=== PATIENT | male | born 1955 | race Caucasian/White ===

== ENCOUNTER 2017-05-02 14:49 | Inpatient (IN) ==
[2017-05-02 16:28] LABS: MANUAL DIFF NEEDED? NO
[2017-05-02 16:32] LABS: BASO% 0.7 % (0.0-0.8); EOS# 0.28 X1000 (0.0-0.7); HEMATOCRIT 40.3 % (42.0-52.0); IMM GRAN# 0.02 X1000 (0.0-0.04); IMM GRAN% 0.3 % (0.0-0.5); LYMPH# 2.34 X1000 (1.2-3.4); LYMPH% 33.1 % (20.5-51.1); MCH 25.1 PG (27-31); MCHC 32.3 g/dL (33-37); MCV 77.8 FL (81-99); MONO# 0.55 X1000 (0.11-0.59); MONO% 7.8 % (1.7-9.3); MPV 11.7 FL (7.4-10.4); NEUT% 54.1 % (42.2-75.2); PLT 186 X1000 (130-400); RBC 5.18 XMIL (4.7-6.1)
[2017-05-02 16:52] LABS: AGAP 16; ALBUMIN 4.1 g/dL (3.5-5.0); ALKALINE PHOSPHATASE 54 U/L (32-122); AMYLASE 36 U/L (20-200); BUN 10 mg/dL (8-22); CALCIUM 8.9 mg/dL (8.8-10.2); CHLORIDE 99 mmol/L (98-107); COSMO 285; GOT 47 U/L (10-34); GPT 41 U/L (10-44); LIPASE 35 U/L (13-60); POTASSIUM 4.4 mmol/L (3.5-5.1); SODIUM 138 mmol/L (136-145); TCO2 23 mmol/L (25-35); TOTAL BILIRUBIN 0.15 mg/dL (0.20-1.00); TOTAL PROTEIN 7.1 g/dL (6.3-8.3)
[2017-05-02] MEDS ORDERED: ZOSYN 3.375 GM/NS 3.375 GM/50 ML IVPB IV ONE (18:32)
[2017-05-02] MEDS ORDERED: FLAGYL 500 MG/NS 500 MG/100 ML IVPB IV ONE (18:33)
[2017-05-02] MEDS ORDERED: DILAUDID IV ONE (18:34)
[2017-05-02] MEDS ORDERED: ZOFRAN IV ONE (18:35)
[2017-05-02] MEDS: NS 1,000 ML IV SCH ×2 (19:15→21:33)
--- NOTE | 2017-05-02 19:17 | PROVIDER DOCUMENTATION ---
This chart was entered by Maribeth Ahmadi Scribe, acting as scribe for Tien Umana MD. HPI-Abdominal Pain/GI Problem - General Chief Complaint: Abdominal Pain Stated Complaint: COLON PAIN Time Seen by Provider: 05/02/17 18:14 Source: patient Allergies/Adverse Reactions: Patient Allergies Allergy/AdvReac Type Severity Reaction Status Date / Time erythromycin base Allergy Severe HIVES Verified 05/02/17 16:19 [Erythromycin Base] adhesive tape Allergy RASH Verified 05/02/17 16:19 Home Medications: Home Medication List Medication Instructions Recorded Confirmed Last Taken Type Albuterol Sulfate Inhaler 2 puff INH Q6H PRN PRN 02/12/13 05/02/17 05/01/17 20: 00 History [Ventolin Hfa] Losartan Potassium [Cozaar] 100 mg PO DAILY 02/12/13 05/02/17 05/01/17 20:00 History SIMVAstatin [Zocor] 40 mg PO QHS 02/12/13 05/02/17 05/01/17 20:00 History Sertraline [Zoloft] 50 mg PO DAILY 02/12/13 05/02/17 05/02/17 08:00 History Metformin [Glucophage] 1,000 mg PO BID CC 07/08/14 05/02/17 05/02/17 08:00 History Fluticasone/Vilanterol [Breo 1 each IH DAILY #1 aer.pow.ba 11/27/15 05/02/1702/13 08:00 Rx Ellipta Inhaler] Trazodone HCl 75 mg PO QHS 03/09/16 05/02/17 05/01/17 20:00 History Sitagliptin Phosphate [Januvia] 100 mg PO DAILY #30 tablet 03/12/16 05/02/1702/13 09:00 Rx Chlordiazepoxide/Clidinium [Librax] 2.5 mg PO BID 10/05/16 05/02/17 02/11/17 10: 00 History Zolpidem [Ambien] 5 mg PO QHS 10/05/16 05/02/17 05/01/17 20:00 History Ondansetron HCl [Zofran] 4 mg PO 3-4XDAY PRN PRN #30 tablet 10/14/16 05/02/17 Unknown Rx Hydrocodone/Acetaminophen [[place] 1 each PO 3-4XDAY PRN #15 tablet 02/11/1705/02 Unknown Rx 7.5-325 Tablet] Omeprazole [Prilosec] 40 mg PO BID 02/11/17 05/02/17 05/02/17 09:00 History Dicyclomine [Bentyl] 20 mg PO BID 05/02/17 05/02/17 05/02/17 08:00 History Insulin Glargine [Lantus] 30 unit SUBQ QHS 05/02/17 05/02/17 05/01/17 21:00 History Metronidazole [Flagyl] 500 mg PO BID 05/02/17 05/02/17 05/02/17 08:00 History Tramadol HCl [Ultram] 50 mg PO PRN PRN 05/02/17 05/02/17 05/02/17 11:30 History - History of Present Illness-ABD Nature of Presenting Problems: 61 Y/O M presents to ED with ABD pain. Pt states that he has a hx of 2 resection colon surgeries. Pt states that the pain began last Monday and increased today pt states that he was assumed to develop diverticulitis by and was placed on Antibiotics. PT IS C/O of being lightheaded, states he is dehydrated . hX OF copd, Acid Reflux, and Diabetes. Abdominal Pain Onset Location: reports: RUQ, LUQ, LLQ Pain Radiation: reports: no radiation Quality of Pain: reports: aching Severity in ED: reports: moderate, severe Onset/Duration: reports: 3 days ago Timing: reports: still present Activities at Onset: reports: none Associated Symptoms: reports: other (lightheaded,dehydrted). denies: fatigue, fever/chills, muscle aches, shortness of breath, sensory/motor loss Review of Systems - Adult - REVIEW OF SYSTEMS - ADULT Constitutional: denies: chills, fever Eyes: reports: no symptoms reported Ears, Nose, Mouth & Throat: reports: no symptoms reported Cardiovascular: reports: no symptoms reported Respiratory: reports: no symptoms reported Gastrointestinal: reports: abdominal pain. denies: diarrhea, nausea, vomiting Genitourinary: reports: no symptoms reported Musculoskeletal: reports: no symptoms reported Integumentary: reports: no symptoms reported Neurological: reports: dizziness/vertigo. denies: headache/migraines, loss of balance Psychiatric: reports: no symptoms reported Endocrine: reports: no symptoms reported Hematologic/Lymphatic: reports: no symptoms reported Allergic/Immunologic: reports: no symptoms reported All Other Systems: Reviewed and Negative Past History - Adult - PAST MEDICAL HISTORY-ADULT Review of Records: reports: Old Records Reviewed, Nursing Assessment Review, Medications Reviewed, Social history reviewed & non-contributory. Cardiovascular: reports: HTN, hyperlipidemia Respiratory: reports: asthma, COPD Gastrointestinal: reports: diverticulosis Genitourinary: reports: kidney disease Endocrine/Immune: reports: Diabetes Other Conditions: reports: other cancer (skin) - PRIOR SURGERIES/PROCEDURES Surgical/Procedure History: reports: cholecystectomy, hernia repair, bowel surgery (colon for diverticulitis) - IMMUNIZATION STATUS Childhood Immunizations: See Nurse Assessment Flu Vaccine: See Nurse Assessment - FAMILY HISTORY Family History: reviewed, not pertinent Physical Exam-General - CONSTITUTIONAL General Appearance: alert, mild distress - EYES Eyes: PERRL/EOMI, pink conjunctivae - HEAD, EARS, NOSE, MOUTH & THROAT HENMT: normocephalic/atraumatic, moist mucous membranes, normal ENT inspection, TMs normal, pharynx normal - NECK Neck: full range of motion, supple, normal inspection - RESPIRATORY Respiratory: lungs clear, normal breath sounds - CARDIOVASCULAR Cardiovascular: normal peripheral pulses, regular rate, rhythm - GASTROINTESTINAL (ABDOMEN) Abdominal Exam: soft, tenderness (LLQ,LLQ,RUQ) - LYMPHATIC Lymphatic: no adenopathy - MUSCULOSKELETAL Back Exam: normal inspection Extremity: non-tender - SKIN Integumentary: normal color, normal turgor - NEUROLOGIC Neurologic: grossly normal - PSYCHIATRIC Psych/Mental Status: normal mood/affect, normal thought content, normal thought process, oriented x 3 Progress - PLAN OF CARE/RESULTS Progress/Plan/Lab Results: Vital Signs - 8 hr 05/02/17 15:14 Temperature 99.3 F Pulse Rate 106 H Respiratory Rate 20 Blood Pressure 172/96 O2 Sat by Pulse Oximetry 96 Laboratory Results - last 24 hr 05/02/17 05/02/17 15:54 15:54 WBC 7.08 RBC 5.18 Hgb 13.0 L Hct 40.3 L MCV 77.8 L MCH 25.1 L MCHC 32.3 L RDW Std Deviation 17.0 H Plt Count 186 MPV 11.7 H Immature Gran % (Auto) 0.3 Neut % (Auto) 54.1 Lymph % (Auto) 33.1 Heard % (Auto) 7.8 Eos % (Auto) 4.0 Baso % (Auto) 0.7 Immature Gran # (Auto) 0.02 Neut # (Auto) 3.84 Lymph # (Auto) 2.34 Heard # (Auto) 0.55 Eos # (Auto) 0.28 Baso # (Auto) 0.05 Sodium 138 Potassium 4.4 Chloride 99 Carbon Dioxide 23 L Anion Gap 16 BUN 10 Creatinine 0.8 Estimated GFR/1.73 m2 > 60 BUN/Creatinine Ratio 13 Glucose 278 H Calculated Osmolality 285 Calcium 8.9 Total Bilirubin 0.15 L AST 47 H ALT 41 Alkaline Phosphatase 54 Total Protein 7.1 Albumin 4.1 Globulin 3.0 Albumin/Globulin Ratio 1.4 Amylase 36 Lipase 35 Orders Category Date Time Status Saline Loc DIRECTED Care 05/02/17 15:51 Active NPO Diet 05/02/17 15:51 Active AMYLASE [CHEM] Stat Lab 05/02/17 15:54 Completed CBC WITH ELECTRONIC DIFF [HEME] Stat Lab 05/02/17 15:54 Completed COMPREHENSIVE METABOLIC PANEL [CHEM] Stat Lab 05/02/17 15:54 Completed LIPASE [CHEM] Stat Lab 05/02/17 15:54 Completed URINALYSIS W/POSS RFLX CULT-1 [URINALYSIS] Stat Lab 05/02/17 15:51 Uncollected Result Diagrams: 05/02/17 15:54 05/02/17 15:54 - XRAY 1 XRAY Study: Chest (no) Impression: Normal XRAY Interpretation: normal - CONSULTS/PCP/HOSPITALIST Notification #1 *Consult/PCP/Hospitalist*: Dr. Dotson Time Discussed: 18:29 Reason/Comments: Admit Consult Disposition: Admit (Admit Accepted) Departure - Departure Date of Disposition Decision: 05/02/17 Time of Disposition Decision: 19:15 DIAGNOSIS: Diverticulitis Qualifiers: Diverticulitis site: large intestine Diverticulitis bleeding: unspecified bleeding status Diverticulitis complication: unspecified complication status Qualified Code(s): K57.32 - Diverticulitis of large intestine without perforation or abscess without bleeding Disposition: ADMITTED INPATIENT 09 Certified Medical Emergency: Emergent Condition: Fair Referrals and Follow-Ups: Sidra Belcher MD [Primary Care Provider] - - Critical Care Note This patient required my direct & personal management of CC.: No This chart was documented by the indicated scribe, (Maribeth Ahmadi Scribe) and accurately reflects the services I performed and decisions made by me, Tien Umana MD, as attested by the provider's signature.
--- NOTE | 2017-05-02 19:25 | Diag Imaging Result Doc PS360 ---
EXAM: CHEST-PORTABLE HISTORY: peritonitis TECHNIQUE: Portable upright COMPARISON: 03/18/2016 FINDINGS: The lungs are well expanded. The heart is not enlarged. The vessels are not distended. No pneumonia. No pleural effusions identified. IMPRESSION: Negative chest. Electronically signed by Miles Caicedo 05/02/2017 7:23 PM
--- NOTE | 2017-05-02 20:14 | Diag Imaging Result Doc PS360 ---
EXAM: CT ABD/PELVIS W/ IV CONT ONLY HISTORY: diverticulitis/peritonitis TECHNIQUE: Dose reduction protocol COMPARISON: 06/05/2015 FINDINGS: The gallbladder has been removed. There is prominent fatty infiltration of the liver. The wall of the stomach is thickened. This is similar to the prior exam. Normal spleen, pancreas, and adrenal glands. Normal enhancement of the kidneys. No hydronephrosis. Moderate atherosclerosis. There are feculent material within the terminal ileum. The appendix has been removed. The urinary bladder is only mildly distended. Prostate is not enlarged. Soft tissue prominence within each inguinal canal similar to the prior exam. IMPRESSION: 1.Thickening to the wall of the stomach. Further workup recommended. 2.Cholecystectomy 3.Prominent liver with fatty infiltration 4.Soft tissue prominence within each inguinal canal similar to the prior exam 5.Appendectomy Electronically signed by Miles Caicedo 05/02/2017 8:11 PM
[2017-05-02] MEDS ORDERED: ZOSYN 3.375 GM/NS 3.375 GM/50 ML IVPB IV SCH (20:30)
[2017-05-02] MEDS ORDERED: FLAGYL 500 MG/NS 500 MG/100 ML IVPB IV SCH (20:30)
[2017-05-02] MEDS ORDERED: ZOFRAN IV PRN (20:32)
[2017-05-02] MEDS ORDERED: HUMULIN R SUBQ ONE (20:33)
[2017-05-02] MEDS ORDERED: PEPCID IV ONE (20:57)
[2017-05-02] MEDS ORDERED: SODIUM CHLORIDE 0.9% INJ ONE (20:57)
--- NOTE | 2017-05-02 21:05 | HISTORY AND PHYSICAL ---
HISTORY OF PRESENT ILLNESS: Mr. Graham who is a 61-year-old white gentleman is admitted with severe abdominal pain, possible diagnosis of acute diverticulitis. 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 Belcher had 2 surgeries, 2 colon resections done by Dr. Dee for diverticulitis. He also had back surgery as well as cholecystectomy and 2 hernia surgeries in the past. He is taking losartan. He is also taking 1000 mg of metformin b.i.d. as well as Januvia 100 mg daily and 40 units of Lantus insulin for his diabetes. He has hypertension, insulin- dependent diabetes and history of 1 back surgery. No history of any cardiovascular illness, he has COPD. He used to smoke however quit smoking 15 years ago. He does not drink. ALLERGIES: To erythromycin, tape. REVIEW OF SYSTEMS: Otherwise except for abdominal pain and persistent severe nausea is noncontributory. PHYSICAL EXAMINATION: VITAL SIGNS: Temperature 98.5 degree Fahrenheit, pulse 76 per minute, respiratory rate 18 per minute, blood pressure 146/72. HEENT: Head normocephalic. Pupils PERRLA. Fundus examination not done. Neck supple. JVP normal. ENT examination unremarkable. There is no evidence of lymphadenopathy, thyroid enlargement, pedal edema, calf tenderness, anemia, cyanosis or clubbing. Pedal pulses well felt. BREAST EXAM: Normal. CHEST: Normal inspection. LUNGS: Reveal occasional wheezing. HEART: Sounds normal. No murmur, gallop or rub noted. ABDOMEN: Distended. It is definitely tender in the left lower quadrant with minimal guarding. No rigidity, bowel sounds present. No organomegaly or free fluid noted. RECTAL: Deferred. CT scan was not indicative of any acute diverticulitis or any perforated diverticulum or gas under the diaphragm. NEUROLOGICAL: Unremarkable. Higher functions, cranial nerves, motor and sensory system examination, deep tendon reflexes, skull and spine examination normal. No cerebellar signs or signs of meningeal irritation. LOCOMOTOR EXAM: Unremarkable. SKIN EXAM: Unremarkable. CLINICAL IMPRESSION: Severe abdominal pain. PLAN: To start IV medications, IV antibiotics including Zosyn and Flagyl and give him something for pain and nausea. cc: MD Guerrero Roberts MD
[2017-05-02] MEDS: MORPHINE IV PRN ×2 (21:33→23:49)
[2017-05-02 21:56] LABS: URINE CULTURE NEEDED? NO; URINE MICRO REVIEW NEEDED? NO; URINE SOURCE CATH
[2017-05-02 21:59] LABS: BILIRUBIN URINE NEGATIVE (NEGATIVE); BLOOD URINE NEGATIVE (NEGATIVE); COLOR YELLOW; GLUCOSE URINE NEGATIVE (NEGATIVE); LEUKOCYTES URINE NEGATIVE (NEGATIVE); NITRITE URINE NEGATIVE (NEGATIVE); PH URINE 5.5; PROTEIN URINE TRACE mg/dL (NEGATIVE); TURBIDITY URINE CLEAR (CLEAR); UROBILINOGEN URINE NORMAL (NORMAL)
[2017-05-02 22:01] LABS: UR EPITHELIAL CELLS <10 /HPF (<10); URINE BACTERIA NEGATIVE /HPF; URINE RBC <10 /HPF (<10); URINE WBC <10 /HPF (<10)
[2017-05-02] MEDS: ZOFRAN IV PRN (22:50)
[2017-05-03] MEDS: ZOSYN 3.375 GM/NS 3.375 GM/50 ML IVPB IV SCH ×2 (01:52→08:19)
[2017-05-03] MEDS: TYLENOL PO PRN ×3 (02:00→20:41)
[2017-05-03] MEDS: MORPHINE IV PRN ×2 (02:00→04:16)
[2017-05-03] MEDS: FLAGYL 500 MG/NS 500 MG/100 ML IVPB IV SCH ×4 (04:16→20:30)
[2017-05-03] MEDS: ZOFRAN IV PRN ×3 (04:17→20:23)
[2017-05-03] MEDS: HUMULIN R SUBQ SCH ×4 (06:28→20:30)
[2017-05-03] MEDS: NS 1,000 ML IV SCH (08:01)
[2017-05-03] MEDS: DILAUDID IV PRN ×3 (08:18→23:46)
[2017-05-03] MEDS ORDERED: LIBRAX PO SCH ×2 (09:00→09:51)
[2017-05-03] MEDS: VENTOLIN HFA INH PRN ×2 (09:52→15:42)
[2017-05-03 09:54] LABS: MANUAL DIFF NEEDED? NO
[2017-05-03 09:58] LABS: BASO% 0.7 % (0.0-0.8); EOS# 0.12 X1000 (0.0-0.7); EOS% 1.6 % (0.0-10.0); HEMATOCRIT 36.4 % (42.0-52.0); HEMOGLOBIN 11.6 g/dL (14.0-18.0); IMM GRAN# 0.02 X1000 (0.0-0.04); IMM GRAN% 0.3 % (0.0-0.5); LYMPH# 1.02 X1000 (1.2-3.4); LYMPH% 13.6 % (20.5-51.1); MCH 24.9 PG (27-31); MCHC 31.9 g/dL (33-37); MCV 78.1 FL (81-99); MONO% 5.3 % (1.7-9.3); MPV 11.8 FL (7.4-10.4); NEUT% 78.5 % (42.2-75.2); PLT 179 X1000 (130-400); RBC 4.66 XMIL (4.7-6.1)
[2017-05-03] MEDS: JANUVIA PO SCH (10:28)
[2017-05-03] MEDS: MIRALAX PO SCH ×2 (10:29→20:27)
[2017-05-03] MEDS: ZOLOFT PO SCH (10:29)
[2017-05-03] MEDS: BENTYL PO SCH ×2 (10:29→20:26)
[2017-05-03] MEDS: PEPCID IV SCH ×2 (10:29→20:25)
[2017-05-03] MEDS: COZAAR PO SCH (10:29)
[2017-05-03 10:36] LABS: AGAP 15; BUN 9 mg/dL (8-22); CALCIUM 7.9 mg/dL (8.8-10.2); CHLORIDE 99 mmol/L (98-107); COSMO 284; POTASSIUM 4.1 mmol/L (3.5-5.1); SODIUM 137 mmol/L (136-145); TCO2 23 mmol/L (25-35)
[2017-05-03] MEDS: LIBRAX PO SCH ×3 (10:40→20:25)
[2017-05-03 11:01] LABS: HEMOGLOBIN A1C 9.9 % (4.8-6.0)
[2017-05-03] MEDS ORDERED: MAXALT PO ONE ×2 (12:50→15:00)
[2017-05-03] MEDS ORDERED: GOLYTELY PO ONE (14:00)
[2017-05-03] MEDS: BREO ELLIPTA 100/25 MCG INH INH SCH (15:44)
[2017-05-03] MEDS ORDERED: INSULIN PEN NEEDLES ONE (16:04)
[2017-05-03] MEDS ORDERED: GLUCOPHAGE PO SCH (17:00)
[2017-05-03] MEDS ORDERED: NS 1,000 ML ONE (18:55)
[2017-05-03] MEDS: ZOCOR PO SCH (20:26)
[2017-05-03] MEDS: AMBIEN PO SCH (20:26)
[2017-05-03] MEDS: DESYREL PO SCH (20:27)
[2017-05-03] MEDS: LANTUS SUBQ SCH (20:31)
--- NOTE | 2017-05-03 20:39 | PROGRESS NOTE ---
DATE: 05/03/2017 SUBJECTIVE: He is a 61-year-old, white gentleman, admitted to the hospital by Dr. Roper last night. He came in with left lower quadrant pain, nausea, vomiting. He was started on IV fluids and pain medicines and antibiotics. The patient thought he had some diverticulitis. Apparently, workup is essentially unremarkable. I did review the x-rays with the radiologist this morning. There is some thickening of the stomach which has been chronic. No change. No findings suspicious for diverticulitis. Symptoms are out of proportion to the objective findings. Patient wants to have a second opinion with Dr. Thomason. REVIEW OF SYSTEMS: HEENT: Complains of headache due to migraine. Requesting for migraine medicine. No focal symptoms. Cardiopulmonary: No cough, shortness of breath, wheezing. GI: Left lower quadrant pain, nausea, vomiting. Neurologic: No focal symptoms. PAST MEDICAL HISTORY, PAST SURGICAL HISTORY, MEDICINES: Reviewed. OBJECTIVE: Vitals: Afebrile, pulse is 84, respirations 20, blood pressure is 149/87. 92%. Input and output positive 1.6 L. HEENT: Atraumatic, normocephalic. Pupils equal, reactive to light. TMs are normal. Nose and throat within normal limits. Neck: Supple. No lymphadenopathy. No goiter. Chest: Bilateral air entry. No wheezing. Heart: Sounds are regular. Abdomen: Belly is soft. Tender in the left lower quadrant, but no signs of peritonitis. Neurologic: No obvious deficits noted. INVESTIGATIONS: CBC: White cell count 7.5, hematocrit 36, platelet 179,000. SMA7: Sodium 137, potassium 4.1, chloride 99, BUN is 9, creatinine 0.9, glucose 298. A1c 9.9. LFTs were normal. Urinalysis is clear. CT scan of the abdomen and pelvis: Findings are thickening of the wall of the stomach. Cholecystectomy, prominent fatty liver. Appendectomy. No diverticulitis. The chest x-ray was stable. ASSESSMENT AND PLAN: 1. A 61-year-old white gentleman, admitted to the hospital with abdominal pain, etiology to be determined. Discontinue morphine. Very judicious use of Dilaudid. We will consult Dr. Thomason for evaluation of thickening of the stomach. 2. Migraine headaches. We will give him Maxalt. 3. Chronic irritable bowel syndrome spasms. Continue on Bentyl and Librax. Gastrointestinal prophylaxis with IV Pepcid. 4. History of asthma and chronic obstructive pulmonary disease, on Breo. 5. Type 2 diabetes, poorly controlled, on Lantus and sliding scale. Januvia. 6. Hypertension, on Cozaar. 7. Hyperlipidemia, on Zocor. 8. Chronic insomnia, on trazodone and Ambien. LEVEL OF CARE: 35 minutes. cc: Guerrero Belcher MD
[2017-05-04] MEDS: ZOFRAN IV PRN ×6 (02:25→23:46)
[2017-05-04] MEDS: FLAGYL 500 MG/NS 500 MG/100 ML IVPB IV SCH ×4 (02:39→21:36)
[2017-05-04] MEDS: TYLENOL PO PRN (03:48)
[2017-05-04] MEDS: HUMULIN R SUBQ SCH ×4 (06:23→21:38)
[2017-05-04] MEDS: DILAUDID IV PRN ×3 (06:46→22:34)
[2017-05-04] MEDS: NS 1,000 ML IV SCH (07:26)
[2017-05-04] MEDS ORDERED: XYLOCAINE-MPF 2% ONE (08:16)
[2017-05-04] MEDS ORDERED: ROBINUL ONE (08:16)
[2017-05-04] MEDS ORDERED: DIPRIVAN 1% ONE ×2 (08:16→08:22)
[2017-05-04] MEDS ORDERED: ZOFRAN ONE (08:16)
[2017-05-04] MEDS ORDERED: FENTANYL ONE (08:17)
--- NOTE | 2017-05-04 08:54 | CONSULTATION ---
DATE OF CONSULTATION: 05/03/2017 REASON FOR CONSULTATION: Abdominal pain. HISTORY OF PRESENT ILLNESS: Mr. Graham is a 61-year-old male, who was admitted yesterday with abdominal pain in the periumbilical region, radiating to the left lower quadrant , right lower quadrant going over the last 3 days. The patient has a history of diverticulitis in the past and he has [address] Dee. He had last EGD and colonoscopy done by Dr. Thomason last year. At that time, he had esophageal dilation and had evidence of diverticula. He had imaging done this admission which showed evidence of fecal material into the terminal ileum and thickening of the wall of the stomach, fatty infiltration of liver and soft tissue prominence within each inguinal canal similar to prior exam and status post appendectomy. There is no mention of any diverticulitis. Since being in the hospital the patient is requiring a lot of pain medications. He has not had a bowel movement. He denies any nausea, vomiting at the moment. He denies any vomiting blood, passing blood in the stools. PAST MEDICAL HISTORY: 1. COPD. 2. Asthma. 3. Type 2 diabetes. 4. Obesity. 5. Metabolic syndrome. 6. Hypertension. 7. Reflux disease. 8. Esophageal stricture. 9. Constipation. 10. Diverticulosis. 11. IBS. 12. Depression. 13. Constipation and diarrhea. PAST SURGICAL HISTORY: 1. Cholecystomy. 2. Bilateral inguinal hernia repair. 3. Right shoulder surgery. 4. Sinus surgery. 5. Colon resection on the left side. 6. Right ingrown toenail surgery. HOME MEDICATIONS: Reviewed. ALLERGIES: Erythromycin, adhesive tape. SOCIAL HISTORY: He is a [place]. He is . He has 1 son. He lives in [place]. He denies any current smoking. He smoked for many years. Quit about 3 years ago. He denies any history of heavy drinking. He drinks 1 beer off and on. FAMILY HISTORY: Denies history of colon cancer in the family. His sister has diabetes. REVIEW OF SYSTEMS: Denies any fevers, rigors, chills, chest pain, shortness of breath, dyspnea. Denies any genitourinary complaints or nausea complaints. Denies any vomiting or passing blood in stools. MEDICATIONS: In the hospital. Include Tylenol, albuterol inhaler and Librax 1 tablets t.i.d. Bentyl 20 mg p.o. b.i.d., Pepcid 20 mg IV b.i.d. and Flagyl 500 mg IV q.6 hours. Fluticasone/vilanterol 1 puff daily, Lantus and regular sliding- scale insulin. Cozaar, metformin, IV 100 mL/h, Zofran, MiraLAX b.i.d., sertraline, Zocor, Januvia, trazodone, zolpidem. He is currently on clear liquid diet. PHYSICAL EXAMINATION: Temperature of 98 degrees, pulse rate of 80, respiratory rate of 14, blood pressure 155/85, saturating 90% on room air. Body weight of 191 pounds 2 ounces. BMI of 31.8 kg.General: Obese, lying in bed, in no acute distress. HEENT: Mild pallor. No icterus. Pupils equal, react to light. Neck: Supple. Chest: Regular rhythm. No murmur. Abdomen: Discomfort in the periumbilical region and epigastric region and right and lower quadrant. Bowel sounds are present. No guarding or rebound. Extremities: No cyanosis, clubbing, and edema. Neurologic: Alert, awake, oriented. LABS: Hemoglobin and hematocrit is 11.6, 36.4, white count of 7.5, platelet count of 135,000, MCV of 70.1. Sodium 139, potassium 4.1, chloride 99, bicarb 23, anion gap 15. BUN of 9, creatinine 0.9, glucose of 298, calcium 7.9. HB A1c is 9.9. AST 47, ALT 41, total protein 7.1, albumin of 4.1, lipase of 35, amylase of 35. Urinalysis showing trace protein and trace ketones, and CT scan results described in HPI. IMPRESSION/PLAN: 1. Abdominal pain worse for the last 3 days requiring hospitalization. 2. Thickening of the wall of the stomach on imaging and per Radiology recommendation we need to perform further workup. 3. Fatty liver. 4. Uncontrolled diabetes. High HB A1c 9.9. 5. IBS with irregular bowel habits with constipation and diarrhea. 6. Previous diverticulitis status post 2 colon surgeries. 7. Depression. 8. Previous surgical cholecystectomy and appendectomy on imaging. RECOMMENDATIONS: 1. Will continue the patient on clear liquid diet today. We will continue on IV fluids, IV H2 blockers, IV antibiotics in the form of Flagyl. The patient will be started on MiraLAX twice daily. 2. We will schedule the patient for EGD and colonoscopy tomorrow to evaluate her symptoms further. The patient also counseled to lose weight and follow gastroesophageal reflux life changes. The patient needs to keep a good control of diabetes to avoid long- term GI complications. 3. The above findings discussed with the patient and the nurse. cc: MD Guerrero Larsen MD [facility]
[2017-05-04] MEDS ORDERED: MAXALT PO ONE ×2 (09:43→12:00)
--- NOTE | 2017-05-04 09:48 | OPERATIVE NOTE ---
PROCEDURE DATE : 05/04/2017 ATTENDING PHYSICIAN: Dr. Belcher. TITLE OF PROCEDURE: 1. Esophagogastroduodenoscopy. 2. Ileocolonoscopy. PREOPERATIVE DIAGNOSES: 1. Abdominal pain, generalized mostly in the left lower quadrant and right lower quadrant, going on for the last 4 days along with nausea, vomiting. Admitted to the hospital with dehydration. 2. Previous history of diverticulitis requiring colon surgery x2. 3. History of irritable bowel syndrome. 4. History of reflux disease. 5. History of depression and anxiety. 6. CT scan negative for diverticulitis. POSTOPERATIVE DIAGNOSES: 1. Normal esophagus the entire length. 2. Z-line visualized at 38 cm. 3. Evidence of sliding hiatal hernia, 2 cm, sliding type. 4. Evidence of mild gastroenteritis in the stomach and body. 5. Normal fundus, cardia, and incisura. 6. Normal duodenal bulb and second portion of duodenum. 7. Normal terminal ileum. 8. Stool in the right colon, thick brown, which was lavaged. 9. Tortuous colon in the left colon, likely from scar tissue from prior surgeries. 10.Internal hemorrhoids. 11.No evidence of any colitis. ESTIMATED BLOOD LOSS: None. COMPLICATIONS: None. ANESTHESIA: Monitored anesthesia care by the anesthesiologist. SPECIMENS COLLECTED: None. DESCRIPTION OF PROCEDURE: After informed consent with the patient explained the risks, benefits, indications and alternatives to the procedure, the patient was prepared for EGD and colonoscopy. The patient was brought to the OR. He was turned in the left lateral position. A bite block was placed in the patient's mouth. After adequate monitored anesthesia care, the upper scope was gently introduced into the oral vestibule and advanced all the way to the second portion of the duodenum. The esophagus was normal in the entire length. Z-line was visualized at 38 cm. There was evidence of a 2 cm sliding hiatal hernia. The scope was advanced into the stomach where there was evidence of erythema in the body and antrum suggesting mild gastritis. There was no evidence of any ulcerations or any evidence of pyloric stenosis. Retroflexion showed normal fundus, cardia, and incisura. The hiatal hernia was visualized. The duodenal bulb and second portion of the duodenum appeared normal. The air was aspirated, and the scope was withdrawn. The patient was then turned around. Rectal exam was performed which revealed enlarged prostate. This needs to be evaluated by Urology. There was normal rectal tone. No blood on the examining finger. The colonoscope was gently introduced through the anal orifice and advanced all the way to the terminal ileum which appeared normal. There was evidence of thick stool in the right colon which was lavaged. The rest of the colon appeared normal. I did not visualize any evidence of any colitis or any obstruction. The colon was tortuous as expected from prior surgeries which could have caused some delay in emptying of the colon and contributed to his IBS symptoms. Retroflexion in the rectum revealed internal hemorrhoids. The air was aspirated, the scope withdrawn. The patient tolerated the procedure well, is currently being monitored in the OR stable condition. I discussed the findings with the patient's family. RECOMMENDATIONS: 1. The patient will be on MiraLAX 17 g once or twice daily. 2. The patient will be on Prilosec 20 mg for 6 to 8 weeks then transition to Zantac 150 mg p.o. b.i.d. 3. The patient will continue to lose weight. The patient will follow gastroesophageal reflux life changes. 4. The patient will increase fiber intake to 25 to 30 g in 24 hours. 5. Will start the patient on GI soft and advance diet as tolerated. The patient will return to clinic as needed. cc: MD Guerrero Larsen MD
[2017-05-04] MEDS ORDERED: BENTYL PO PRN (09:51)
[2017-05-04] MEDS: ZOLOFT PO SCH (10:27)
[2017-05-04] MEDS: LIBRAX PO SCH ×3 (10:27→21:37)
[2017-05-04] MEDS: JANUVIA PO SCH (10:27)
[2017-05-04] MEDS: COZAAR PO SCH (10:27)
[2017-05-04] MEDS: MIRALAX PO SCH (10:28)
[2017-05-04] MEDS: PEPCID IV SCH ×2 (10:28→21:36)
[2017-05-04] MEDS: BREO ELLIPTA 100/25 MCG INH INH SCH (11:26)
--- NOTE | 2017-05-04 19:05 | PROGRESS NOTE ---
DATE: 05/04/2017 SUBJECTIVE: Patient complains of headache, abdominal pain. Discussed with Dr. Roper. He is going to do EGD and flexible sigmoidoscopy REVIEW OF SYSTEMS: The rest of the review of systems are normal. PHYSICAL EXAMINATION: Vital Signs: He is afebrile. Vitals are stable. 2 L nasal cannula 92%. HEENT Exam: Within normal limits. Neck: Supple. Chest: Clear to auscultation. Heart: Sounds are regular. Abdomen: Belly is soft, nontender. Good bowel sounds. No masses palpable. Extremities: No peripheral edema, cyanosis. Neurologic: No obvious neurological deficits. ASSESSMENT AND PLAN: 1. Abdominal pain. Plan is follow up on EGD and flexible sigmoidoscopy. 2. Migraine headache. On Maxalt. 3. Asthmatic bronchitis. Stable. 4. Poorly-controlled diabetes, control sugar, follow up on sliding scale with insulin coverage. 5. Follow up on the EGD and colon findings are discussed with the patient. LEVEL OF DOCUMENTATION: 15 minutes. cc: Guerrero Belcher MD
[2017-05-04] MEDS: SODIUM CHLORIDE 0.9% INJ SCH (21:36)
[2017-05-04] MEDS: AMBIEN PO SCH (21:37)
[2017-05-04] MEDS: DESYREL PO SCH (21:37)
[2017-05-04] MEDS: ZOCOR PO SCH (21:38)
[2017-05-04] MEDS: LANTUS SUBQ SCH (21:39)
[2017-05-05] MEDS: FLAGYL 500 MG/NS 500 MG/100 ML IVPB IV SCH ×2 (04:16→08:04)
[2017-05-05] MEDS: ZOFRAN IV PRN ×2 (04:17→08:59)
[2017-05-05] MEDS: NS 1,000 ML IV SCH (06:03)
[2017-05-05] MEDS: MIRALAX PO SCH ×2 (06:05→08:04)
[2017-05-05] MEDS: DILAUDID IV PRN ×2 (06:49→09:47)
[2017-05-05] MEDS: HUMULIN R SUBQ SCH (06:49)
[2017-05-05 07:50] VITALS: BP 127/63
[2017-05-05] MEDS: COZAAR PO SCH (08:03)
[2017-05-05] MEDS: LIBRAX PO SCH (08:03)
[2017-05-05] MEDS: JANUVIA PO SCH (08:04)
[2017-05-05] MEDS: ZOLOFT PO SCH (08:04)
[2017-05-05] MEDS: PEPCID IV SCH (08:04)
[2017-05-05] MEDS: SODIUM CHLORIDE 0.9% INJ SCH (08:04)
--- NOTE | 2017-05-06 06:55 | DISCHARGE SUMMARY ---
ADMISSION DATE: 05/02/2017 DISCHARGE DATE: 05/05/2017 DISCHARGING DIAGNOSES: 1. Abdominal pain due to irritable bowel syndrome. 2. Chronic obstructive pulmonary disease. 3. Type 2 diabetes. 4. Hypertension. 5. Gout. 6. Hyperlipidemia. 7. Hiatal hernia with esophagitis. 8. Reactive depression. CONSULTANTS: Dr. Arya Roper. PROCEDURES: Esophagogastroduodenoscopy and colonoscopy. FINDINGS: 1. Normal esophagus. 2. Sliding hiatal hernia 2 cm. 3. Tortuous colon from the scar tissue. 4. Internal hemorrhoids. BRIEF HISTORY: Please see the H and P that was done by Dr. Roper. In brief, he is a 61-year-old, white gentleman, with a known history of IBS and scar tissue who came in with acute abdominal pain, nausea and vomiting. Patient was admitted by Dr. Roper. The patient's symptoms are out of proportion to the objective findings. He also has intractable headache due to migraine requiring Maxalt. He was given IV fluids and IV antibiotics. Further workup including CT scan of the abdomen and pelvis and EGD and colonoscopy were unremarkable. Findings were reassuring to the patient. I told him it is probably from the scar tissue and tortuous colon with IBS. Treated with Librax and refraining from any narcotics. LABORATORIES: CBC: White cell count 7.5, hematocrit 36, platelet 179,000. SMA-7: Sodium 137, potassium 4.1, chloride 99. BUN 9, creatinine 0.9. A1c 9.9. LFTs were normal. Urinalysis is clear. CT scan of the abdomen and pelvis. Thickening of the stomach wall, cholecystectomy, fatty liver, appendectomy. DISCHARGE INSTRUCTIONS: Control the blood sugars as discussed with the patient. DISCHARGE MEDICATIONS: 1. Zoloft 50 mg daily. 2. Ventolin HFA q.6 as needed. 3. Zocor 40 mg daily. 4. Losartan 100 daily. 5. Metformin 1000 p.o. b.i.d. 6. Breo 1 capsule inhalation daily. 7. Trazodone 75 mg daily. 8. Januvia 100 mg daily. 9. Librax 1 tablet as needed. 10. Ambien 5 mg at bedtime. 11. Prilosec 40 mg daily. 12. Tylenol as needed for pain. 13. MiraLAX 17 g daily. 14. Maxalt as needed for headache. PLAN: Follow up in my office for maintenance care for diabetes and hypertension. cc: MD Arya Elias MD
== END 2017-05-05 10:00 | disposition home or self-care (01) ==
LOC: ED 14:49 → 4N 20:18
PROVIDERS: ADMIT Internal Medicine; ATTEND Internal Medicine

== ENCOUNTER 2017-06-12 15:09 | Inpatient (IN) ==
[2017-06-12] MEDS: DILAUDID IV PRN ×3 (16:51→23:49)
[2017-06-12] MEDS: NS 1,000 ML IV SCH (16:57)
[2017-06-12] MEDS: FLAGYL 500 MG/NS 500 MG/100 ML IVPB IV SCH (16:57)
[2017-06-12 17:27] LABS: MANUAL DIFF NEEDED? NO
[2017-06-12 17:30] LABS: BASO% 0.8 % (0.0-0.8); EOS# 0.44 X1000 (0.0-0.7); EOS% 6.8 % (0.0-10.0); HEMATOCRIT 39.2 % (42.0-52.0); HEMOGLOBIN 12.7 g/dL (14.0-18.0); LYMPH# 2.22 X1000 (1.2-3.4); LYMPH% 34.1 % (20.5-51.1); MCH 25.1 PG (27-31); MCHC 32.4 g/dL (33-37); MCV 77.6 FL (81-99); MONO# 0.48 X1000 (0.11-0.59); MONO% 7.4 % (1.7-9.3); MPV 10.8 FL (7.4-10.4); NEUT% 50.9 % (42.2-75.2); PLT 208 X1000 (130-400); RBC 5.05 XMIL (4.7-6.1)
[2017-06-12 17:50] LABS: AGAP 18; ALBUMIN 4.3 g/dL (3.5-5.0); ALKALINE PHOSPHATASE 46 U/L (32-122); BUN 9 mg/dL (8-22); CALCIUM 9.3 mg/dL (8.8-10.2); CHLORIDE 100 mmol/L (98-107); COSMO 278; GOT 52 U/L (10-34); GPT 60 U/L (10-44); POTASSIUM 4.3 mmol/L (3.5-5.1); SODIUM 139 mmol/L (136-145); TCO2 21 mmol/L (25-35); TOTAL BILIRUBIN 0.17 mg/dL (0.20-1.00); TOTAL PROTEIN 7.2 g/dL (6.3-8.3)
--- NOTE | 2017-06-12 20:47 | Diag Imaging Result Doc PS360 ---
CT ABD/PELVIS W/ IV CONT ONLY - 06/12/2017 INDICATION: Abdominal pain TECHNIQUE: A CT dose reduction protocol was used. COMPARISON: 05/02/2017 FINDINGS: stable chronic atelectasis in the lingula. No infiltrates in the lung bases. Stable fatty change of the liver the liver. No bowel obstruction or inflammation. Stable bilateral inguinal hernia repair plugs. Urinary bladder, prostate, and rectum are normal. IMPRESSION: Fatty liver. No acute disease or change from prior. Electronically signed by Ervin Browne 06/12/2017 8:44 PM
[2017-06-12] MEDS: HUMALOG SUBQ SCH (21:23)
[2017-06-12 22:07] LABS: URINE SOURCE VOIDED
[2017-06-12] MEDS: ZOFRAN IV PRN (22:13)
[2017-06-12] MEDS: TYLENOL PO PRN (22:13)
--- NOTE | 2017-06-12 22:17 | HISTORY AND PHYSICAL ---
CHIEF COMPLAINT: Left-sided abdominal pain associated with fever, nausea, vomiting. HISTORY OF PRESENT ILLNESS: He is a 61-year-old white gentleman admitted to the hospital directly from office with left lower quadrant pain associated with a fever tachycardic, patient was very tender. Has been hospitalized for possible colitis versus diverticulitis. I gave him the options outpatient treatment in light of negative workup recently. He wants to go to the hospital for aggressive medical management. He also has some diarrhea and vomiting. PAST MEDICAL HISTORY: COPD, diabetes, metabolic syndrome, hypertension, acid reflux disease, IBS with diarrhea, depression, hyperlipidemia. PAST SURGICAL HISTORY: Gallbladder surgery, bilateral inguinal hernia repair, right shoulder surgery, sinus surgery. MEDICINES: Ambien 5 mg daily, Breo 1 puff daily, Cozaar 100 daily, Januvia 100 daily, Librax 1 tablet 3 times daily, Maxalt 10 mg daily, metformin 500 two tablets p.o. b.i.d. , Singulair 10 daily, simvastatin 40 daily, Spiriva 1 capsule inhalation daily, trazodone 150 at bedtime, Trulicity once a week, Ultram 50 t.i.d., Ventolin as needed, Zanaflex 4 mg daily, Zoloft 50 daily. ALLERGIES: Erythromycin. SOCIAL HISTORY: 23 years, 1 son, wilmer, lives in [place], no smoking, no alcohol. FAMILY HISTORY: Father of diabetic complications, chronic kidney disease. Mom of COPD, hypertension and diabetes. HEALTH MAINTENANCE: Flu vaccine 2015, pneumococcal vaccine 2013. Last prostate exam 12/2014, colonoscopy 04/[address] Thomason. REVIEW OF SYSTEMS: HEENT: No headache. No vision problem. No earache. No sore throat. Neck: No goiter. No lymphadenopathy. No bruit. Cardiopulmonary: No chest pain, shortness of breath, PND, orthopnea. GI: Left lower quadrant pain, fever, diarrhea, nausea, vomiting. : No history of hesitancy, frequency. Extremities: No swelling of legs. No joint pain. Neuro: No focal symptoms or weakness. PHYSICAL EXAMINATION: VITAL SIGNS: Afebrile. Vitals are stable. 5 feet 5, 187 pounds. HEENT: Atraumatic, normocephalic. Pupils equal, react to light. TMs are normal. Nose and throat within normal limits. NECK: Supple. No lymphadenopathy. No goiter. CHEST: Bilateral air entry. No rales, no wheezing. HEART: Sounds are regular. BELLY: Is soft. Tender in the left lower quadrant area, good bowel sounds, no signs of peritonitis. EXTREMITIES: No peripheral edema, cyanosis. NEURO: No obvious neurological deficits. INVESTIGATIONS: CBC, white cell count 6.5, hematocrit 39, platelets 350 SMA 7 is normal. Glucose 126. LFTs are slightly high. CT scan of the abdomen and pelvis pending. ASSESSMENT AND PLAN: 1. 61-year-old white gentleman admitted to the hospital with left lower quadrant pain suspicious for diverticulitis. Symptoms are out of proportion to the objective findings. Follow up on CT, continue IV fluids and IV Flagyl. Deep venous thrombosis prophylaxis with Lovenox. PPI prophylaxis with Protonix. Reconcile home medicines. 2. Type 2 diabetes poorly controlled. Follow up on sliding scale with insulin coverage. Will keep him on NPO until the results and will follow up on pending labs. cc: Guerrero Belcher MD MTDD
[2017-06-12 22:29] LABS: URINE MICRO REVIEW NEEDED? NO
[2017-06-12] MEDS: PROTONIX IV SCH (23:54)
[2017-06-12] MEDS: SODIUM CHLORIDE 0.9% INJ SCH (23:55)
[2017-06-12] MEDS: LOVENOX SUBQ SCH (23:55)
[2017-06-12] MEDS: AMBIEN PO SCH (23:55)
[2017-06-12] MEDS: ZOCOR PO SCH (23:56)
[2017-06-12] MEDS: DESYREL PO SCH (23:56)
[2017-06-13 00:23] LABS: BILIRUBIN URINE NEGATIVE (NEGATIVE); BLOOD URINE NEGATIVE (NEGATIVE); COLOR ORANGE; GLUCOSE URINE NEGATIVE (NEGATIVE); LEUKOCYTES URINE NEGATIVE (NEGATIVE); NITRITE URINE NEGATIVE (NEGATIVE); PH URINE 5.5; PROTEIN URINE TRACE mg/dL (NEGATIVE); SP GRAVITY URINE 1.025; TURBIDITY URINE TURBID (CLEAR); UROBILINOGEN URINE NORMAL (NORMAL)
[2017-06-13 00:24] LABS: UR EPITHELIAL CELLS <10 /HPF (<10); URINE BACTERIA NEGATIVE /HPF; URINE RBC <10 /HPF (<10); URINE WBC <10 /HPF (<10)
[2017-06-13] MEDS: FLAGYL 500 MG/NS 500 MG/100 ML IVPB IV SCH ×3 (01:23→17:11)
[2017-06-13] MEDS: ZOFRAN IV PRN ×6 (02:15→21:40)
[2017-06-13] MEDS: DILAUDID IV PRN ×7 (02:57→21:40)
[2017-06-13] MEDS: TYLENOL PO PRN ×3 (05:26→17:58)
[2017-06-13] MEDS: HUMALOG SUBQ SCH ×3 (07:23→16:18)
[2017-06-13] MEDS: NS 1,000 ML IV SCH ×3 (07:27→21:40)
[2017-06-13] MEDS: JANUVIA PO SCH (08:55)
[2017-06-13] MEDS: COZAAR PO SCH (08:55)
[2017-06-13] MEDS: ZOLOFT PO SCH (08:56)
[2017-06-13] MEDS: THERA M PLUS PO SCH (08:56)
--- NOTE | 2017-06-13 08:58 | PROGRESS NOTE ---
DATE: 06/13/2017 SUBJECTIVE: Patient has still left lower quadrant pain. REVIEW OF SYSTEMS: None reported. OBJECTIVE: Vital Signs: Afebrile. Vitals are stable. Input and output are 820 mL positive. HEENT: Within normal limits. Neck: Supple. No lymphadenopathy. Chest: Clear. Heart: Sounds are regular. Abdomen: Belly is soft, nontender. No signs of peritonitis. INVESTIGATIONS: CBC, SMA 12, urinalysis is clear. CT of the abdomen and pelvis is negative. ASSESSMENT AND PLAN: 1. Abdominal pain on the left side. Symptoms are out of proportion to the objective findings. Results discussed with the patient. Judicious use of pain medicines and Flagyl. Previous gastrointestinal workup was negative. 2. Advance the diet and follow up on sliding scale with insulin coverage. LEVEL OF DOCUMENTATION: 25 minutes. cc: Guerrero Belcher MD
[2017-06-13] MEDS ORDERED: INSULIN PEN NEEDLES ONE (14:45)
[2017-06-13] MEDS ORDERED: LANTUS SUBQ SCH (21:00)
[2017-06-13] MEDS: AMBIEN PO SCH (21:39)
[2017-06-13] MEDS: ZOCOR PO SCH (21:39)
[2017-06-13] MEDS: DESYREL PO SCH (21:39)
[2017-06-13] MEDS: SODIUM CHLORIDE 0.9% INJ SCH (21:40)
[2017-06-13] MEDS: LOVENOX SUBQ SCH (21:40)
[2017-06-13] MEDS: PROTONIX IV SCH (21:40)
[2017-06-14] MEDS: HUMALOG SUBQ SCH ×4 (00:12→17:03)
[2017-06-14] MEDS: DILAUDID IV PRN ×5 (00:49→21:13)
[2017-06-14] MEDS: FLAGYL 500 MG/NS 500 MG/100 ML IVPB IV SCH ×3 (00:50→16:56)
[2017-06-14] MEDS: ZOFRAN IV PRN (03:47)
[2017-06-14] MEDS: PHENERGAN IV PRN ×3 (08:01→16:55)
[2017-06-14] MEDS: SODIUM CHLORIDE 0.9% INJ PRN ×2 (08:01→16:56)
--- NOTE | 2017-06-14 08:36 | Diag Imaging Result Doc PS360 ---
EXAM: CHEST-1 VIEW INDICATION: possible aspiration TECHNIQUE: One view COMPARISON: 05/02/2017 FINDINGS: Inspiration is suboptimal this is causing mild central vascular crowding. The lungs are grossly clear. There is no discrete pleural fluid collection or pneumothorax. The cardiomediastinal silhouette and central vasculature are grossly unremarkable. IMPRESSION: Low lung volumes but no definite acute pathology by plain radiograph, otherwise. Electronically signed by Parish Dodd 06/14/2017 8:34 AM
[2017-06-14] MEDS: THERA M PLUS PO SCH (09:00)
[2017-06-14] MEDS: JANUVIA PO SCH (09:00)
[2017-06-14] MEDS: ZOLOFT PO SCH (10:34)
[2017-06-14] MEDS: COZAAR PO SCH (10:34)
[2017-06-14] MEDS: NS 1,000 ML IV SCH (11:47)
--- NOTE | 2017-06-14 18:36 | PROGRESS NOTE ---
DATE: 06/14/2017 SUBJECTIVE: The patient has extremely bilious vomiting this morning. Oxygen level is low. He was given oxygen. REVIEW OF SYSTEMS: Low-grade fever. PHYSICAL EXAMINATION: Vitals are stable on oxygen 2 L. HEENT exam within normal limits. Chest is clear. Heart sounds are regular. Belly is soft, nontender. Good bowel sounds. No masses palpable. No peripheral edema or cyanosis. No obvious neurological deficits. CHEST X-RAY: Low lung volumes. No infiltrates noted. ASSESSMENT AND PLAN: 1. Abdominal pain. Symptoms are out of proportion with objective findings. IV fluids and IV Flagyl. 2. Nausea and vomiting. Probably from the medication effect. Put him NPO, IV fluids and IV Phenergan. 3. Questionable aspiration. Follow up on chest x-ray. Stable. 4. Type 2 diabetes on Lantus insulin. Since he is NPO, we will hold the Lantus tonight and will follow up. cc: Guerrero Belcher MD
[2017-06-14] MEDS: DESYREL PO SCH (21:10)
[2017-06-14] MEDS: SODIUM CHLORIDE 0.9% INJ SCH (21:11)
[2017-06-14] MEDS: PROTONIX IV SCH (21:11)
[2017-06-14] MEDS: AMBIEN PO SCH (21:11)
[2017-06-14] MEDS: LOVENOX SUBQ SCH (21:11)
[2017-06-14] MEDS: ZOCOR PO SCH (21:11)
[2017-06-15] MEDS: NS 1,000 ML IV SCH ×2 (01:30→15:57)
[2017-06-15] MEDS: FLAGYL 500 MG/NS 500 MG/100 ML IVPB IV SCH ×3 (01:31→19:43)
[2017-06-15] MEDS: DILAUDID IV PRN ×5 (02:31→21:25)
[2017-06-15] MEDS: PHENERGAN IV PRN ×4 (02:35→15:58)
[2017-06-15] MEDS: HUMALOG SUBQ SCH ×5 (03:17→21:31)
[2017-06-15] MEDS: COZAAR PO SCH (08:13)
[2017-06-15] MEDS: ZOLOFT PO SCH (08:13)
[2017-06-15] MEDS: JANUVIA PO SCH (08:13)
[2017-06-15] MEDS: THERA M PLUS PO SCH (08:13)
[2017-06-15] MEDS: SODIUM CHLORIDE 0.9% INJ SCH ×3 (11:56→21:24)
--- NOTE | 2017-06-15 20:46 | PROGRESS NOTE ---
DATE: 06/15/2017 SUBJECTIVE: Patient is a little better. NPO. Decreased nausea, vomiting. No flatus. OBJECTIVE: Vital signs: Low-grade fever. Vitals are stable. Chest: Decreased rhonchi. Heart: Sounds are regular. Abdomen: Belly is soft, nontender. Good bowel sounds. No masses palpable. No signs of peritonitis. Neurologic: Nonfocal. INVESTIGATIONS: Chest x-ray was stable. ASSESSMENT AND PLAN: 1. Nausea and vomiting due to Dilaudid. CT findings reassuring. Diet nothing per oral. 2. Symptomatic treatment for nausea, Phenergan. 3. Diabetes. We will hold the Lantus since nothing per oral. Continue on popsicles and ice chips today until he passes 3 flatus. 4. DVT prophylaxis with Lovenox. Discussed with the . will follow up. LEVEL OF DOCUMENTATION: 25 minutes. cc: Guerrero Belcher MD
[2017-06-15] MEDS: ZOFRAN IV PRN (21:24)
[2017-06-15] MEDS: ZOCOR PO SCH (21:24)
[2017-06-15] MEDS: PROTONIX IV SCH (21:24)
[2017-06-15] MEDS: AMBIEN PO SCH (21:24)
[2017-06-15] MEDS: DESYREL PO SCH (21:24)
[2017-06-15] MEDS: LOVENOX SUBQ SCH (21:25)
[2017-06-15] MEDS: TYLENOL PO PRN (21:44)
[2017-06-16] MEDS: PHENERGAN IV PRN ×4 (03:25→20:04)
[2017-06-16] MEDS: SODIUM CHLORIDE 0.9% INJ PRN (03:25)
[2017-06-16] MEDS: DILAUDID IV PRN ×6 (03:26→23:40)
[2017-06-16] MEDS: FLAGYL 500 MG/NS 500 MG/100 ML IVPB IV SCH ×3 (03:27→20:02)
[2017-06-16] MEDS: HUMALOG SUBQ SCH ×4 (06:30→22:37)
[2017-06-16] MEDS: ZOFRAN IV PRN ×2 (06:41→23:40)
[2017-06-16] MEDS: NS 1,000 ML IV SCH (08:39)
[2017-06-16] MEDS: COZAAR PO SCH (08:40)
[2017-06-16] MEDS: THERA M PLUS PO SCH (08:40)
[2017-06-16] MEDS: JANUVIA PO SCH (08:40)
[2017-06-16] MEDS: ZOLOFT PO SCH (08:40)
[2017-06-16] MEDS: SODIUM CHLORIDE 0.9% INJ SCH ×3 (11:22→20:04)
[2017-06-16] MEDS: DESYREL PO SCH (20:03)
[2017-06-16] MEDS: LOVENOX SUBQ SCH (20:04)
[2017-06-16] MEDS: PROTONIX IV SCH (20:04)
[2017-06-16] MEDS: AMBIEN PO SCH (20:04)
[2017-06-16] MEDS: ZOCOR PO SCH (20:04)
--- NOTE | 2017-06-16 21:19 | PROGRESS NOTE ---
DATE: 06/16/2017 SUBJECTIVE: The patient is a little better. Decrease in nausea and vomiting. History of flatus. Able to go to the bathroom. PHYSICAL EXAMINATION: Vital Signs: Stable. 90% on room air. Intake and output are positive 480. REVIEW OF SYSTEMS: No shortness of breath, wheezing. PHYSICAL EXAMINATION: Vital Signs: Afebrile. HEENT: Within normal limits. Neck: Supple. Chest: No rhonchi. Heart: Sounds are regular. Abdomen: Belly is soft, nontender. Good bowel sounds. No signs of peritonitis. Neurologic: No obvious focal deficits. INVESTIGATIONS: 1. Abdominal pain on the left side. Symptoms are out of proportion. CT scan is negative. Continued to ask for the Dilaudid. Will slowly cut down the dose. 2. Nausea and vomiting due to medication effect. We will initiate full liquid diet. If she tolerates, slowly advanced the diet. 3. Chronic obstructive pulmonary disease and asthma, stable. 4. Diabetes. Follow on the Lantus. 5. Continue deep venous thrombosis and gastrointestinal prophylaxis as the plan of care. 6. We will keep him over the weekend, and hopefully he will be discharged on Monday. LEVEL OF DOCUMENTATION: 35 minutes. cc: Guerrero Belcher MD
[2017-06-17] MEDS: PHENERGAN IV PRN ×2 (02:43→09:11)
[2017-06-17] MEDS: SODIUM CHLORIDE 0.9% INJ PRN (02:43)
[2017-06-17] MEDS: DILAUDID IV PRN ×7 (02:44→23:59)
[2017-06-17] MEDS: NS 1,000 ML IV SCH (02:46)
[2017-06-17] MEDS: FLAGYL 500 MG/NS 500 MG/100 ML IVPB IV SCH ×3 (03:00→21:49)
[2017-06-17] MEDS: ZOFRAN IV PRN ×2 (06:03→20:55)
[2017-06-17] MEDS: HUMALOG SUBQ SCH ×4 (06:07→21:38)
[2017-06-17] MEDS: ZOLOFT PO SCH (09:12)
[2017-06-17] MEDS: COZAAR PO SCH (09:12)
[2017-06-17] MEDS: THERA M PLUS PO SCH (09:12)
[2017-06-17] MEDS: JANUVIA PO SCH (09:12)
[2017-06-17 09:27] LABS: MANUAL DIFF NEEDED? NO
[2017-06-17 09:56] LABS: BASO% 0.6 % (0.0-0.8); EOS# 0.43 X1000 (0.0-0.7); EOS% 6.9 % (0.0-10.0); HEMATOCRIT 34.8 % (42.0-52.0); HEMOGLOBIN 10.9 g/dL (14.0-18.0); LYMPH# 1.92 X1000 (1.2-3.4); LYMPH% 30.6 % (20.5-51.1); MCH 25.2 PG (27-31); MCHC 31.3 g/dL (33-37); MCV 80.6 FL (81-99); MONO# 0.47 X1000 (0.11-0.59); MONO% 7.5 % (1.7-9.3); MPV 10.9 FL (7.4-10.4); NEUT% 54.4 % (42.2-75.2); PLT 176 X1000 (130-400); RBC 4.32 XMIL (4.7-6.1)
--- NOTE | 2017-06-17 10:01 | PROGRESS NOTE ---
DATE: 06/17/2017 SUBJECTIVE: Mr. Graham is a 61-year-old white gentleman admitted with pain, left lower quadrant. The patient also had significant tenderness, mild nausea, no vomiting. Pain moderate to severe in intensity, requiring IV pain medicine. Admission history and physical noted. Patient's CT scan of the abdomen and pelvis did reveal fatty liver. PAST MEDICAL HISTORY: Significant for diabetes, COPD, hypertension, gastritis, and reflux disease, irritable bowel syndrome, hyperlipidemia. OBJECTIVE: Vital signs: Noted. Lungs: Bibasilar crepitations. Heart: S1 and S2 heard. Abdomen: Soft, globular, tenderness left lower quadrant. Extremities: No cyanosis, clubbing, no acute DVT. ASSISTANT DIRECTOR OF PUBLIC WORKS: Alert, awake, able to move a 4 limbs. DIAGNOSTIC DATA: CT scan results reviewed. PROBLEMS: Include: 1. Left lower quadrant pain. 2. [id number] diabetes mellitus. 3. Hypertension. 4. Gastritis. 5. Fatty liver. ASSESSMENT AND PLAN: Will continue current treatment. Close observation. The patient is on pain medicine, IV antibiotics which will continue. I am going to get GI evaluation. cc: MD Guerrero Rivera MD
[2017-06-17 10:17] LABS: AGAP 12; ALBUMIN 3.6 g/dL (3.5-5.0); ALKALINE PHOSPHATASE 39 U/L (32-122); BUN 4 mg/dL (8-22); CALCIUM 8.6 mg/dL (8.8-10.2); CHLORIDE 103 mmol/L (98-107); COSMO 285; GOT 37 U/L (10-34); GPT 40 U/L (10-44); MAGNESIUM 1.3 mg/dL (1.5-2.7); POTASSIUM 3.7 mmol/L (3.5-5.1); SODIUM 141 mmol/L (136-145); TCO2 26 mmol/L (25-35); TOTAL BILIRUBIN 0.28 mg/dL (0.20-1.00)
[2017-06-17] MEDS ORDERED: MAGNESIUM SULFATE 2 GM/S.W.I. 2 GM/50 ML IVPB IV ONE (19:29)
[2017-06-17] MEDS: DESYREL PO SCH (20:54)
[2017-06-17] MEDS: ZOCOR PO SCH (20:54)
[2017-06-17] MEDS: PROTONIX IV SCH (20:55)
[2017-06-17] MEDS: AMBIEN PO SCH (20:55)
[2017-06-17] MEDS: SODIUM CHLORIDE 0.9% INJ SCH (20:55)
[2017-06-17] MEDS: LOVENOX SUBQ SCH (20:55)
[2017-06-17] MEDS ORDERED: ALBUTEROL NEB INH PRN (21:14)
[2017-06-17] MEDS: DUONEB (A & A) INH PRN (22:14)
[2017-06-18] MEDS: NS 1,000 ML IV SCH (00:13)
[2017-06-18] MEDS: DILAUDID IV PRN ×6 (03:24→22:05)
[2017-06-18] MEDS: PHENERGAN IV PRN ×3 (03:24→11:47)
[2017-06-18] MEDS: FLAGYL 500 MG/NS 500 MG/100 ML IVPB IV SCH ×3 (03:24→22:15)
[2017-06-18] MEDS: HUMALOG SUBQ SCH ×4 (06:25→22:09)
[2017-06-18] MEDS: ZOFRAN IV PRN ×3 (08:06→22:16)
[2017-06-18] MEDS: COZAAR PO SCH (08:15)
[2017-06-18] MEDS: THERA M PLUS PO SCH (08:15)
[2017-06-18] MEDS: JANUVIA PO SCH (08:16)
[2017-06-18] MEDS: ZOLOFT PO SCH (08:16)
[2017-06-18] MEDS: DUONEB (A & A) INH PRN (10:51)
[2017-06-18] MEDS: BREO ELLIPTA 100/25 MCG INH INH SCH (10:52)
[2017-06-18] MEDS: SODIUM CHLORIDE 0.9% INJ PRN (11:49)
--- NOTE | 2017-06-18 13:55 | PROGRESS NOTE ---
DATE: 06/18/2017 SUBJECTIVE: Mr. Graham is doing fair. He is still complaining of pain in the left lower quadrant, moderate in intensity. Requiring IV pain medications. Yesterday patient had a cough and wheezing. I resumed his bronchodilator care and today patient is feeling some better. The patient is still on a full liquid diet. No typical chest pain or palpitations. No dysuria or hematuria. No blood or mucus in the stool. Denied any back pain or radiculopathy. OBJECTIVE: Vital signs: Noted. Neck: Supple. No JVD. Lungs: Bilateral good air entry present. CVS: S1 and S2 heard. Abdomen: Soft. The patient does have tenderness left lower quadrant. No guarding or rigidity. Extremities: No cyanosis, clubbing. Minimal swelling around ankles. MANAGER DATA: Alert, awake. Able to move all 4 limbs. CONSIDERATION: 1. Left lower quadrant pain, etiology not known. I repeated blood work yesterday. CBC was benign. Electrolytes were fairly benign. His magnesium was low and I supplemented magnesium. LFTs were fairly benign. I am going to get GI consultation as patient is not getting better. 2. Chronic obstructive pulmonary disease. 3. Diabetes mellitus. 4. Hypertension. 5. Situational depression. 6. Hyperlipidemia. PLAN: Labs and medications noted. Overall plan discussed with the patient and he is in agreement. After reviewing the x-ray and GI evaluation, will make necessary recommendations. cc: MD Guerrero Rivera MD
--- NOTE | 2017-06-18 14:26 | Diag Imaging Result Doc PS360 ---
EXAM: ABDOMEN FLAT/UPRIGHT INDICATION: pain TECHNIQUE: 3 views COMPARISON: 06/07/2015 FINDINGS: There are nonspecific bowel gas and stool patterns. There is no obstructive bowel pattern. There is no evidence of large volume free abdominal gas. There is no evidence of organomegaly. IMPRESSION: Nonspecific abdomen. Electronically signed by Parish Dodd 06/18/2017 2:24 PM
--- NOTE | 2017-06-18 14:30 | Diag Imaging Result Doc PS360 ---
EXAM: CHEST-2 VIEWS INDICATION: pulm edema? TECHNIQUE: 2 views COMPARISON: 06/14/2017 FINDINGS: The lungs are grossly clear. There is no discrete pleural fluid collection or pneumothorax. The cardiomediastinal silhouette and central vasculature are grossly unremarkable. IMPRESSION: No evidence of acute pathology by plain radiograph. Electronically signed by Parish Dodd 06/18/2017 2:28 PM
[2017-06-18] MEDS ORDERED: BENTYL LIQUID PO SCH (17:00)
--- NOTE | 2017-06-18 20:05 | CONSULTATION ---
DATE OF CONSULTATION: 06/18/2017 ATTENDING PHYSICIAN: Dr. Jacobsen. PRIMARY DOCTOR: Dr. Belcher. REASON FOR CONSULTATION: Left lower quadrant pain and left upper quadrant pain. HISTORY OF PRESENT ILLNESS: Mr. Graham is a 61-year-old male, who has prior history of diverticulitis in the past and had [address] Dee. He has had recent EGD and colonoscopy done on 05/04/2017, which showed: A. Sliding hiatal hernia 2 cm. B. Mild gastritis in the stomach body. C. Normal terminal ileum. D. Stool in the right colon thick brown large. E. Torturous colon left colon likely from scar from prior surgeries. F. Isolated diverticulum in the splenic flexure. G. No evidence any colitis. At that time the patient was placed on MiraLAX and Prilosec. He is taking that at home until about last week when he continued to have worsening abdominal pain. He saw Dr. Belcher in the outpatient and then was admitted through the ER subsequently with worsening left-sided abdominal pain with fever, nausea and vomiting. He had a CT scan of the abdomen and pelvis done on 06/12/2017, which showed fatty liver, no bowel obstruction inflammation, stable bilateral inguinal hernia repair plugs and urinary bladder, prostate and rectum are normal. The patient is currently being treated with IV pain control, IV fluids, IV antiemetics. He continues to have persistent symptoms requiring IV Dilaudid every 3 hours and the primary care team consulted us for further management. PAST MEDICAL HISTORY: COPD, asthma, type 2 diabetes, obesity, metabolic syndrome, fatty liver, hypertension, reflux disease, esophageal stricture, constipation, diverticulosis , IBS, depression, constipation and diarrhea. PAST SURGERY HISTORY: Cholecystectomy, bilateral inguinal hernia repair, right shoulder surgery, sinus surgery, colon resection x 2 in the left side from diverticulitis by Dr. Dee, right-sided ingrown toenail surgery. MEDICATIONS AT HOME: Reviewed. ALLERGIES: To erythromycin and adhesive tape. SOCIAL HISTORY: He is a [place]. He is . He has 1 son. He lives in [place]. He denies any current smoking; he smoked for many years before and quit about 3 years ago. He denies any history of heavy alcohol. He drinks 1 beer off and on. He denies any history of illicit drugs. He has a very supportive at the bedside. FAMILY HISTORY: No history of colon cancer in the family. His sister has diabetes. REVIEW OF SYSTEMS: Denies any current fevers, rigors, or chills, but on admission he did complain of subjective fevers. Denies any chest pain, shortness of breath, dyspnea at rest. Denies any genitourinary complaints. Does complain of pain in the left upper quadrant and left lower quadrant along with episodic nausea and reflux. He also complains of changes in bowel habits due to constipation and diarrhea. He also complains of bloating and gas. Denies noticing any blood in the stools or vomiting blood. MEDICATIONS IN THE HOSPITAL: Include Tylenol, albuterol/ipratropium nebulizer inhaler every 6 hours, bisacodyl 10 mg at bedtime, Lovenox 40 mg every day, Flagyl 5 mg IV every 8 hours, fluticasone 1 puff inhaled every day, Dilaudid 1 mg every 3 hours as needed, Humalog sliding, Culturelle 1 capsule b.i.d., losartan, multivitamin, IV fluids of normal saline at 60 mL/h., Zofran, Protonix, MiraLAX twice daily, Phenergan 12.5 mg IV every 4 hours, Metamucil 1 cap p.o. b.i.d., sertraline, simvastatin, sitagliptin, trazodone, Zolpidem, magnesium sulfate given once. He is currently on full liquid diet. PHYSICAL EXAMINATION: Vital Signs: Temperature of 99.4 degrees, pulse rate of 83, respiratory rate 20, blood pressure 143/70, saturating 94% on room air. Body weight of 187 pounds. BMI of 31.1 kg. General: He is moderately built and nourished lying in bed, in no acute distress. HEENT: Mild pallor. No icterus. Pupils equal, react to light. Neck: Supple. Chest: Decreased Breath sounds at the bases; Cardiac: Regular. No murmur. Abdomen: Discomfort in the left upper quadrant and left lower quadrant. No rebound or guarding. Bowel sounds. Extremities: No cyanosis or clubbing. Neurologic: He is alert, awake, oriented. LABS: Hemoglobin and hematocrit is 10.9 and 34.8, white count 6.27, platelet count of 176,000, MCV of 80.6. Sodium 141, potassium 3.7 chloride 103, bicarb 26, anion gap 12, BUN of 4, creatinine 0.7, glucose of 223, calcium 8.6, magnesium 1.3, total bilirubin is 0.28, AST 37, ALT 40, alkaline phos 39, total protein 6, albumin of 3.6. Chest x-ray done this morning showed no evidence of acute pathology. Abdominal x-ray done this morning showed nonspecific abdomen. No obstructive bowel pattern noted. CT scan as described in HPI. He had a urine culture which was negative. IMPRESSION AND PLAN: 1. Abdominal pain in the left upper quadrant; patient has history of isolated Splenic flexure diverticulum; Suspect ? diverticulitis. He is already on Flagyl. But CT scan is negative. 2. Left lower quadrant pain, chronic, going on for the last 2 years. May be secondary to irritable bowel syndrome, scar tissue from previous surgeries causing torturous colon and incomplete emptying. 3. Abdominal bloating likely secondary to constipation and irritable bowel syndrome. 4. Gastroesophageal reflux disease. 5. Fatty liver. 6. Diabetes. 7. Previous history of diverticulitis surgery x [address] Dee. RECOMMENDATIONS: 1. We will increase patient's MiraLAX to 17 g twice daily. 2. We will keep on Metamucil 1 tablespoon p.o. b.i.d. 3. We will keep him on Dulcolax 10 mg p.r.n. at bedtime. 4. We will keep him on Protonix once a day. 5. Will keep on full liquid diet for now. We will start him on Culturelle 1 capsule p.o. b.i.d. 6. We will encourage the patient to increase fiber intake to 25-30 g every 24 hours and drink 2-3 L of fluid every day. 7. We will avoid any corn, nuts, and seeds in diet. 8. We will start him on Bentyl 10 mg 3 times daily as needed for abdominal cramping. Patient was advised to wean down the narcotics use. The above plan of care discussed with the patient and family and all questions were answered. cc: MD Guerrero Larsen MD Bharat K. Vakharia, MD MTDD
[2017-06-18] MEDS ORDERED: DULCOLAX PR SCH (21:00)
[2017-06-18] MEDS ORDERED: LASIX IV ONE (21:07)
[2017-06-18] MEDS: PROTONIX IV SCH (22:11)
[2017-06-18] MEDS: SODIUM CHLORIDE 0.9% INJ SCH (22:11)
[2017-06-18] MEDS: METAMUCIL PO SCH (22:14)
[2017-06-18] MEDS: CULTURELLE PO SCH (22:14)
[2017-06-18] MEDS: DESYREL PO SCH (22:14)
[2017-06-18] MEDS: AMBIEN PO SCH (22:14)
[2017-06-18] MEDS: LOVENOX SUBQ SCH (22:14)
[2017-06-18] MEDS: ZOCOR PO SCH (22:14)
[2017-06-18] MEDS: MIRALAX PO SCH (22:15)
[2017-06-19] MEDS: FLAGYL 500 MG/NS 500 MG/100 ML IVPB IV SCH (04:23)
[2017-06-19] MEDS: DILAUDID IV PRN ×2 (04:23→08:28)
[2017-06-19] MEDS: ZOFRAN IV PRN ×2 (04:23→08:28)
[2017-06-19] MEDS: HUMALOG SUBQ SCH (07:26)
[2017-06-19] MEDS: BREO ELLIPTA 100/25 MCG INH INH SCH (08:22)
[2017-06-19] MEDS: THERA M PLUS PO SCH (08:27)
[2017-06-19] MEDS: MIRALAX PO SCH (08:27)
[2017-06-19] MEDS: CULTURELLE PO SCH (08:27)
[2017-06-19] MEDS: JANUVIA PO SCH (08:27)
[2017-06-19] MEDS: METAMUCIL PO SCH (08:27)
[2017-06-19] MEDS: COZAAR PO SCH (08:27)
[2017-06-19] MEDS: ZOLOFT PO SCH (08:27)
[2017-06-19 08:31] VITALS: BP 147/71
[2017-06-19] MEDS ORDERED: BENTYL PO SCH (09:00)
[2017-06-19] MEDS ORDERED: PNEUMOVAX 23 IM ONE (09:07)
--- NOTE | 2017-06-19 22:48 | DISCHARGE SUMMARY ---
ADMISSION DATE: 06/12/2017 DISCHARGE DATE: 06/19/2017 DISCHARGING DIAGNOSIS: Abdominal pain due to splenic diverticula with redundant colon. SECONDARY DIAGNOSIS: 1. Irritable bowel syndrome. 2. Chronic obstructive pulmonary disease. 3. Type 2 diabetes. 4. Hypertension. 5. Gout. 6. Hyperlipidemia. 7. Hiatal hernia with esophagitis. 8. Reactive depression. CONSULTS: Dr. Roper. BRIEF HISTORY: Please see the H and P that was done through my office on 06/12. In brief he is a 61-year-old white gentleman basically admitted to the hospital with abdominal pain, nausea, vomiting. His symptoms are out of proportion. He is running low-grade fever. He had an extensive workup done in the previous admission. He was admitted at the behest of his medical complaints. His symptoms are out of proportion to the objective findings. CT of the abdomen and pelvis findings were reassuring. He was started on Dilaudid for which he has been seeking and also developed nausea, vomiting. Dr. Rpoer was consulted and he also reassured the patient. Will treat with MiraLAX , Bentyl , Dulcolax. There is no need to use narcotics with low dose of Nubain. I did discuss with him if he has any GI problem will go to Dr. Thomason's office. LABS: CBC, white cell count 6.2, hematocrit 35, platelet count 176,000. SMA 7 was normal. Cardiac enzymes were normal. His magnesium is 1.3. ProBNP 410. LFTs were normal. DISCHARGE INSTRUCTIONS: Flu vaccine 2015, Zoloft 50 mg daily, simvastatin 40 daily, Cozaar 100 daily, metformin 1000 p.o. b.i.d., trazodone 75 at bedtime, Januvia 100 daily, Ambien 5 mg daily, Lantus 40 units subcu at bedtime, Prilosec 40 daily, multivitamin 1 tablet daily, ProAir 1 puff q.6, Breo 1 puff daily, Dulcolax 10 at bedtime, Bentyl as needed, MiraLAX 17 g p.o. b.i.d. Follow up with my office for maintenance care for diabetes, hypertension, hyperlipidemia. Follow up with Dr. Combs for GI symptoms. cc: Arya Roper MD [facility]ITALJerzy
== END 2017-06-19 10:14 | disposition home or self-care (01) ==
LOC: DIRADM 15:09 → 3N 16:08
PROVIDERS: ADMIT Internal Medicine; ATTEND Internal Medicine

== ENCOUNTER 2017-06-21 16:59 | Inpatient (IN) ==
[2017-06-21 17:51] LABS: MANUAL DIFF NEEDED? NO
--- NOTE | 2017-06-21 17:53 | Diag Imaging Result Doc PS360 ---
EXAM: CHEST-2 VIEWS HISTORY: cough TECHNIQUE: PA and lateral chest COMMENT: There is increased interstitial markings in both lung bases with obscuration of large portions of the right hemidiaphragm. This was not the case on 06/18/2017. There may be a small amount of fluid in the costophrenic sulcus. IMPRESSION: Bronchopneumonia particularly in the right lower lobe with pleural effusion. Electronically signed by Kvng Elkins 06/21/2017 5:50 PM
--- NOTE | 2017-06-21 17:54 | ED EKG INTERP ---
This chart was entered by Aida Wynne Scribe, acting as scribe for Malcom Guajardo MD. EKG Interpretation - EKG Time of EKG reading by physician:: 17:07 EKG Read and Signed by:: Liu Guajardo EKG Interpretation (*Must complete 3 of following elements*): Normal Rate: 98 Rhythm: Normal sinus rhythm. [place]: normal (PRT axis 52 17 39.) QRS: normal (QRS duration 68 ms.) NH Interval: normal (NH interval 116 ms.) Attestation - Physician/ ROSSY Attestation Patient care was provided by Advanced Practice Provider:: No The physician spent face to face time with patient:: Yes Advanced Practice Provider documentation review:: Supervising physician onsite and consulted in the evaluation and care of this patient. The physician did have a face to face encounter with the patient. This chart was documented by the indicated scribe, (Aida Wynne Scribe) and accurately reflects the services I performed and decisions made by Bennett padilla Tom-Meka M., MD, as attested by the provider's signature.
[2017-06-21 17:55] LABS: BASO% 0.4 % (0.0-0.8); EOS% 2.5 % (0.0-10.0); HEMATOCRIT 33.8 % (42.0-52.0); HEMOGLOBIN 10.5 g/dL (14.0-18.0); IMM GRAN# 0.02 X1000 (0.0-0.04); IMM GRAN% 0.3 % (0.0-0.5); LYMPH# 1.15 X1000 (1.2-3.4); LYMPH% 14.5 % (20.5-51.1); MCH 24.4 PG (27-31); MCHC 31.1 g/dL (33-37); MCV 78.6 FL (81-99); MONO# 0.64 X1000 (0.11-0.59); MONO% 8.1 % (1.7-9.3); MPV 11.6 FL (7.4-10.4); NEUT% 74.2 % (42.2-75.2); PLT 191 X1000 (130-400)
[2017-06-21 18:02] LABS: INR 1.05; PROTIME 11.1 Seconds (9.2-11.7); PTT 28.5 Seconds (22.0-36.0)
[2017-06-21 18:20] LABS: AGAP 15; ALBUMIN 3.8 g/dL (3.5-5.0); ALKALINE PHOSPHATASE 39 U/L (32-122); BUN 5 mg/dL (8-22); CALCIUM 8.2 mg/dL (8.8-10.2); CHLORIDE 102 mmol/L (98-107); CK PROFILE 102 U/L (24-204); COSMO 283; GOT 12 U/L (10-34); GPT 15 U/L (10-44); MAGNESIUM 1.4 mg/dL (1.5-2.7); SODIUM 140 mmol/L (136-145); TCO2 23 mmol/L (25-35); TOTAL BILIRUBIN 0.44 mg/dL (0.20-1.00); TOTAL PROTEIN 6.6 g/dL (6.3-8.3)
[2017-06-21] MEDS ORDERED: NS 1,000 ML IV ONE (18:21)
[2017-06-21] MEDS ORDERED: ROCEPHIN 1 GM in NS 50 ML IV ONE (18:21)
[2017-06-21] MEDS ORDERED: ZITHROMAX 500 MG/NS 500 MG/250 ML IVPB IV ONE (18:21)
[2017-06-21 18:22] LABS: URINE CULTURE NEEDED? NO; URINE MICRO REVIEW NEEDED? NO; URINE SOURCE CLEAN CATCH
[2017-06-21 18:24] LABS: BILIRUBIN URINE NEGATIVE (NEGATIVE); BLOOD URINE NEGATIVE (NEGATIVE); COLOR YELLOW; GLUCOSE URINE 500 mg/dL (NEGATIVE); LEUKOCYTES URINE NEGATIVE (NEGATIVE); NITRITE URINE NEGATIVE (NEGATIVE); PROTEIN URINE 30 mg/dL (NEGATIVE); SP GRAVITY URINE 1.027; TURBIDITY URINE CLEAR (CLEAR); UR EPITHELIAL CELLS <10 /HPF (<10); URINE BACTERIA NEGATIVE /HPF; URINE RBC <10 /HPF (<10); URINE WBC <10 /HPF (<10); UROBILINOGEN URINE NORMAL (NORMAL)
[2017-06-21] MEDS ORDERED: LEVAQUIN 750 MG/D5W 750 MG/150 ML IVPB IV ONE (18:36)
[2017-06-21] MEDS ORDERED: DILAUDID IV ONE (18:36)
[2017-06-21] MEDS ORDERED: SODIUM CHLORIDE 0.9% INJ ONE (18:36)
[2017-06-21] MEDS ORDERED: PHENERGAN IV ONE (18:36)
[2017-06-21] MEDS ORDERED: DUONEB (A & A) INH ONE (18:37)
[2017-06-21] MEDS ORDERED: DILAUDID ONE (18:45)
--- NOTE | 2017-06-21 18:46 | PROVIDER DOCUMENTATION ---
This chart was entered by Maribeth Ahmadi Scribe, acting as scribe for William Rabago MD. HPI-Fever - General Chief Complaint: Fever Stated Complaint: SOB,FEVER Time Seen by Provider: 06/21/17 18:20 Source: patient Allergies/Adverse Reactions: Patient Allergies Allergy/AdvReac Type Severity Reaction Status Date / Time erythromycin base Allergy Severe HIVES Verified 06/21/17 18:24 [Erythromycin Base] adhesive tape Allergy RASH Verified 06/21/17 18:24 Home Medications: Home Medication List Medication Instructions Recorded Confirmed Last Taken Type Losartan Potassium [Cozaar] 100 mg PO DAILY 02/12/13 06/21/17 06/21/17 08:00 History SIMVAstatin [Zocor] 40 mg PO QHS 02/12/13 06/21/17 06/20/17 21:00 History Sertraline [Zoloft] 50 mg PO DAILY 02/12/13 06/21/17 06/21/17 08:00 History Metformin [Glucophage] 1,000 mg PO BID 07/08/14 06/21/17 06/21/17 08:00 History Trazodone HCl 75 mg PO QHS 03/09/16 06/21/17 06/20/17 21:00 History Sitagliptin Phosphate [Januvia] 100 mg PO DAILY #30 tablet 03/12/16 06/21/17 08:00 Rx Zolpidem [Ambien] 5 mg PO QHS 10/05/16 06/21/17 06/20/17 21:00 History Insulin Glargine [Lantus] 40 unit SUBQ QHS 05/02/17 06/21/17 06/20/17 21:00 History Omeprazole [Prilosec] 40 mg PO DAILY #0 05/05/17 06/21/17 06/21/17 08:00 Rx Multivitamin [Multi-Vitamin Daily] 1 tab PO DAILY 06/12/17 06/21/17 06/21/17 08: 00 History Albuterol Sulfate [Proair Hfa] 8.5 gm IH Q4-6H PRN PRN 06/13/17 06/21/17 09:00 History 8.5gm Fluticasone/Vilanterol [Breo 1 puff INH DAILY 06/13/17 06/21/17 06/21/17 08:00 History Ellipta 100-25 Mcg INH] Polyethylene Glycol 3350 [Miralax] 17 gm PO BID #60 powder, packet 06/19/1706/21/17 08:00 Rx Dulaglutide [Trulicity] 1 dose SQ DIRECTED 06/21/17 06/21/17 Unknown History Levofloxacin [Levaquin] 500 mg PO DAILY 06/21/17 06/21/17 06/20/17 21:00 History Psyllium Husk [Metamucil] 1 cap PO DAILY 06/21/17 06/21/17 06/21/17 08:00 History - History of Present Illness-Fever Nature of Presenting Problem: 61 Y/O M presents to ED with Fever. Pt states that he was here 1 week ago fro colon resection surgery complications. Pt states Monday night fever began, with SOB, pt states he was using a nebulizer every 4 hours. Pt had a measured fever at home of 102.6, 2 Tylenol give. Pt states coughing no productive. Pain with breathing on left side. Pt states hx of pneumonia and COPD. 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 denies: diarrhea, headaches, vomiting Similar Symptoms Previously?: Yes Recently seen or treated by another doctor?: Yes - Gl[place]ow Coma Score Best Eye Response ([place]): (4) open spontaneously Best Verbal Response ([place]): (5) oriented Best Motor Response ([place]): (6) obeys commands [place] Total: 15 Review of Systems - Adult - REVIEW OF SYSTEMS - ADULT Constitutional: reports: chills, fever Ears, Nose, Mouth & Throat: denies: ear pain, sinus problem, throat pain, throat swelling Cardiovascular: reports: chest pain Respiratory: reports: cough, shortness of breath Gastrointestinal: reports: nausea. denies: abdominal pain, diarrhea, vomiting Past History - Adult - PAST MEDICAL HISTORY-ADULT Review of Records: reports: Old Records Reviewed, Nursing Assessment Review, Medications Reviewed, Social history reviewed & non-contributory. Cardiovascular: reports: HTN, hyperlipidemia Respiratory: reports: asthma, COPD Gastrointestinal: reports: diverticulosis Genitourinary: reports: kidney disease Endocrine/Immune: reports: Diabetes Other Conditions: reports: other cancer (skin) - PRIOR SURGERIES/PROCEDURES Surgical/Procedure History: reports: cholecystectomy, hernia repair, bowel surgery (colon for diverticulitis) - IMMUNIZATION STATUS Childhood Immunizations: See Nurse Assessment Flu Vaccine: See Nurse Assessment - FAMILY HISTORY Family History: reviewed, not pertinent - SOCIAL HISTORY Smoking: quit greater than 1 year Living Situation: family Physical Exam-General - CONSTITUTIONAL General Appearance: alert, mild distress - EYES Eyes: pink conjunctivae, anisocoria - HEAD, EARS, NOSE, MOUTH & THROAT HENMT: normal ENT inspection, TMs normal, pharynx normal - NECK Neck: full range of motion, supple, normal inspection - RESPIRATORY Respiratory: rhonchi (bilateral). negative: lungs clear - CARDIOVASCULAR Cardiovascular: regular rate, rhythm - GASTROINTESTINAL (ABDOMEN) Abdominal Exam: non tender, soft - LYMPHATIC Lymphatic: no adenopathy - MUSCULOSKELETAL Back Exam: no CVA tenderness, no vertebral tenderness Extremity: non-tender, normal gait - SKIN Integumentary: normal turgor - PSYCHIATRIC Psych/Mental Status: normal mood/affect, normal thought content, normal thought process, oriented x 3 Progress - PLAN OF CARE/RESULTS Progress/Plan/Lab Results: Vital Signs - 8 hr 06/21/17 17:11 06/21/17 18:32 Temperature 101.5 F H Pulse Rate 94 H 97 H Respiratory Rate 20 23 Blood Pressure 162/80 166/97 O2 Sat by Pulse Oximetry 95 94 L Laboratory Results - last 24 hr 06/21/17 06/21/17 06/21/17 17:21 17:21 17:21 WBC 7.94 RBC 4.30 L Hgb 10.5 L Hct 33.8 L MCV 78.6 L MCH 24.4 L MCHC 31.1 L RDW Std Deviation 19.2 H Plt Count 191 MPV 11.6 H Immature Gran % (Auto) 0.3 Neut % (Auto) 74.2 Lymph % (Auto) 14.5 L [place] % (Auto) 8.1 Eos % (Auto) 2.5 Baso % (Auto) 0.4 Immature Gran # (Auto) 0.02 Neut # (Auto) 5.90 Lymph # (Auto) 1.15 L [place] # (Auto) 0.64 H Eos # (Auto) 0.20 Baso # (Auto) 0.03 PT INR PTT (Actin FS) Sodium 140 Potassium 4.0 Chloride 102 Carbon Dioxide 23 L Anion Gap 15 BUN 5 L Creatinine 0.7 Estimated GFR/1.73 m2 > 60 BUN/Creatinine Ratio 7 Glucose 209 H Calculated Osmolality 283 Calcium 8.2 L Magnesium 1.4 L Total Bilirubin 0.44 AST 12 ALT 15 Alkaline Phosphatase 39 Creatine Kinase 102 Troponin T Total Protein 6.6 Albumin 3.8 Globulin 2.8 Albumin/Globulin Ratio 1.4 Plasma Lactate 3.7 H Urine Source Urine Color Urine Turbidity Urine pH Ur Specific [place] Urine Protein Ur Glucose (Stick) Ur Ketones (Stick) Urine Blood Urine Nitrite Urine Bilirubin Urobilinogen Dipstick Urine Leukocytes Urine WBC (Auto) Urine RBC (Auto) U Epithel Cells (Auto) Urine Bacteria (Auto) 06/21/17 06/21/17 06/21/17 17:21 17:21 17:56 WBC RBC Hgb Hct MCV MCH MCHC RDW Std Deviation Plt Count MPV Immature Gran % (Auto) Neut % (Auto) Lymph % (Auto) [place] % (Auto) Eos % (Auto) Baso % (Auto) Immature Gran # (Auto) Neut # (Auto) Lymph # (Auto) [place] # (Auto) Eos # (Auto) Baso # (Auto) PT 11.1 INR 1.05 PTT (Actin FS) 28.5 Sodium Potassium Chloride Carbon Dioxide Anion Gap BUN Creatinine Estimated GFR/1.73 m2 BUN/Creatinine Ratio Glucose Calculated Osmolality Calcium Magnesium Total Bilirubin AST ALT Alkaline Phosphatase Creatine Kinase Troponin T < 0.010 Total Protein Albumin Globulin Albumin/Globulin Ratio Plasma Lactate Urine Source CLEAN CATCH Urine Color YELLOW Urine Turbidity CLEAR Urine pH 8.0 Ur Specific [place] 1.027 Urine Protein 30 A Ur Glucose (Stick) 500 A Ur Ketones (Stick) TRACE A Urine Blood NEGATIVE Urine Nitrite NEGATIVE Urine Bilirubin NEGATIVE Urobilinogen Dipstick NORMAL Urine Leukocytes NEGATIVE Urine WBC (Auto) <10 Urine RBC (Auto) <10 U Epithel Cells (Auto) <10 Urine Bacteria (Auto) NEGATIVE Orders Category Date Time Status Oxygen Therapy- ED Nursing DIRECTED Care 06/21/17 18:19 Active CHEST-2 VIEWS [RAD] Stat Exams 06/21/17 17:14 Completed BLOOD CULTURE [BLDCUL] Stat Lab 06/21/17 17:21 Results CBC WITH DIFF [HEME] Stat Lab 06/21/17 17:21 Completed CK PROFILE [SP CHEM] Stat Lab 06/21/17 17:21 Completed COMPREHENSIVE METABOLIC PANEL [CHEM] Stat Lab 06/21/17 17:21 Completed LACTATE, PLASMA [CHEM] Stat Lab 06/21/17 17:21 Completed MAGNESIUM [CHEM] Stat Lab 06/21/17 17:21 Completed PROTIME WITH INR [COAG] Stat Lab 06/21/17 17:21 Completed PTT [COAG] Stat Lab 06/21/17 17:21 Completed TROPONIN T Stat Lab 06/21/17 17:21 Completed URINALYSIS W/POSS RFLX CULT-1 [URINALYSIS] Stat Lab 06/21/17 17:56 Completed 0.9% Sodium Chloride Inj [Ns] 1,000 ml Med 06/21/17 18:21 Active IV 999 mls/hr Albuterol 2.5MG/Ipratrop 0.5MG [Duoneb (A & A)] Med 06/21/17 18:37 Discontinued 3 ml INH NOW ONE Azithromycin 500 mg/Ns [Zithromax 500 mg/Ns] Med 06/21/17 18:21 Discontinued 500 mg in 250 ml IV NOW CefTRIAXONE [Rocephin] 1 gm Med 06/21/17 18:21 Active 0.9% Sodium Chloride Inj [Ns] 50 ml IV NOW Hydromorphone [Dilaudid] Med 06/21/17 18:36 Discontinued 1 mg IV NOW ONE Levofloxacin 750 mg/D5w [Levaquin 750 mg/D5w] Med 06/21/17 18:36 Active 750 mg in 150 ml IV NOW Promethazine [Phenergan] Med 06/21/17 18:36 Discontinued 12.5 mg IV NOW ONE Sodium Chloride 0.9% Med 06/21/17 18:36 Discontinued 10 ml INJ NOW ONE Aerosol Treatments Routine Oth 06/21/17 18:37 Active Aerosol Treatments Stat Oth 06/21/17 18:37 Active EKG [EKG] Stat Ther 06/21/17 17:16 Ordered Result Diagrams: 06/21/17 17:21 06/21/17 17:21 - XRAY 1 XRAY Study: Chest Impression: Abnormal XRAY Interpretation: pneumonia lower right lobe - CONSULTS/PCP/HOSPITALIST Notification #1 *Consult/PCP/Hospitalist*: Time Discussed: 18:40 Reason/Comments: Admit Consult Disposition: Admit Departure - Departure Date of Disposition Decision: 06/21/17 Time of Disposition Decision: 18:45 DIAGNOSIS: Pneumonia Qualifiers: Pneumonia type: due to unspecified organism Laterality: right Lung location: lower lobe of lung Qualified Code(s): J18.1 - Lobar pneumonia, unspecified organism Disposition: HOME 01 Certified Medical Emergency: Emergent Condition: Fair Referrals and Follow-Ups: Sidra Belcher MD [Primary Care Provider] - - Critical Care Note This patient required my direct & personal management of CC.: No Attestation - Physician/ ROSSY Attestation Patient care was provided by Advanced Practice Provider:: No The physician spent face to face time with patient:: Yes Advanced Practice Provider documentation review:: Supervising physician onsite and consulted in the evaluation and care of this patient. The physician did have a face to face encounter with the patient. This chart was documented by the indicated scribe, (Maribeth Ahmadi Scribe) and accurately reflects the services I performed and decisions made by me, William Rabago MD, as attested by the provider's signature.
[2017-06-21] MEDS ORDERED: NUBAIN IV PRN (21:31)
[2017-06-21] MEDS: ZOFRAN IV PRN (21:49)
--- NOTE | 2017-06-21 22:13 | HISTORY AND PHYSICAL ---
CHIEF COMPLAINT: Fever, cough and congestion for the last 2 days since he was discharged from the hospital. HISTORY OF PRESENT ILLNESS: He is a 61-year-old, white gentleman, admitted to the hospital recently with abdominal pain due to tortuous colon with scar tissue and splenic diverticulum. He had nausea and vomiting and when he was discharged, he had a normal white cell count. No fever and chest x-ray was clear. Apparently went home, started having fever, cough and congestion. Upon workup in the ER, normal white cell count. Normal blood gas. On chest x-ray, a right lower lobe pneumonia. He has been hospitalized with IV antibiotics, most likely aspiration pneumonia. As a result, a hospital admission was readmitted. PAST MEDICAL HISTORY: COPD, diabetes, metabolic syndrome, hypertension, acid reflux disease, IBS, depression, hyperlipidemia. PAST SURGICAL HISTORY: Cholecystectomy, bilateral inguinal hernia repair, right shoulder surgery, sinus surgery. MEDICINES: Ambien 5 mg daily, Breo 1 puff daily, Cozaar 100 daily, Januvia 100 daily, Librax 1 tablet 3 times daily, Mirapex 17 g twice daily, Maxalt 10 mg as needed, metformin 500, 2 tablets p.o. b.i.d., Singulair 10 daily, simvastatin 40 daily, Spiriva 1 capsule inhalation daily, trazodone 150 at bedtime, Trulicity 0.7 mg once a week, Ultram 50 t.i.d., Ventolin as needed, Zanaflex 4 mg daily, Zoloft 50 daily. ALLERGIES: Erythromycin. SOCIAL HISTORY: for 23 years. 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 Lives in [place]. No smoking. No alcohol. FAMILY HISTORY: Father of diabetic complications and chronic kidney disease. Mom of COPD, hypertension, diabetes. HEALTH MAINTENANCE: Flu vaccine 2016, pneumococcal vaccine 2013. REVIEW OF SYSTEMS: HEENT: No headache. No dizziness. No earache. No sore throat. Neck: No goiter. No lymphadenopathy. No bruit. Cardiopulmonary: Cough, congestion, fever. Integument: No skin rashes. GI: No nausea, vomiting, abdominal pain. : No history of hesitancy, frequency. No swelling of legs. No joint pain. Neurologic: No focal symptoms or weakness. PHYSICAL EXAMINATION: VITAL SIGNS: Fever 101. Vitals are stable. Tachycardic. 2 L of nasal oxygen 94%. HEENT: Atraumatic, normocephalic. Pupils equal, react to light. TMs are normal. Nose and throat within normal limits. NECK: Supple. No lymphadenopathy. No goiter. CHEST: Bilateral air entry. Crackles in the right base. HEART: Sounds are tachycardic. No murmur. ABDOMEN: Belly is soft, nontender. Good bowel sounds. No masses palpable. No signs of peritonitis. RECTAL: Deferred. EXTREMITIES: No peripheral edema, cyanosis. NEUROLOGIC: No obvious neurological deficits. INVESTIGATIONS: CBC: White cell count 7.9, hematocrit 33, platelets 191,000. PT/INR is normal. SMA7 was normal. Glucose 209, magnesium 1.4. Plasma lactate slightly high. Urinalysis is clear. Blood cultures are pending. Chest x-ray: Right lower lobe infiltrate. ASSESSMENT AND PLAN: 1. A 61-year-old white gentleman, admitted to the hospital with right lower lobe pneumonia, assumed to be aspiration. Plan is oxygen, bronchodilators and IV Zosyn and Levaquin. 2. Deep venous thrombosis prophylaxis with Lovenox. 3. Type 2 diabetes on Lantus and sliding scale with insulin coverage. 4. Reconcile home medicines and IV hydration. Judicious use of narcotics and vaccinations were up-to-date. We will follow up on the clinical course. cc: Guerrero Belcher MD
[2017-06-21] MEDS ORDERED: INSULIN PEN NEEDLES ONE (22:32)
[2017-06-21] MEDS: MIRALAX PO SCH (23:06)
[2017-06-21] MEDS: SODIUM CHLORIDE 0.9% INJ SCH (23:14)
[2017-06-21] MEDS: PROTONIX IV SCH (23:14)
[2017-06-21] MEDS: LOVENOX SUBQ SCH (23:14)
[2017-06-21] MEDS: AMBIEN PO SCH (23:15)
[2017-06-21] MEDS: DESYREL PO SCH (23:15)
[2017-06-21] MEDS: ZOSYN 3.375 GM in NS 50 ML IV SCH (23:15)
[2017-06-21] MEDS: NS 1,000 ML IV SCH (23:16)
[2017-06-21] MEDS: HUMALOG SUBQ SCH (23:52)
[2017-06-21] MEDS: LANTUS SUBQ SCH (23:52)
[2017-06-22] MEDS: ZOFRAN IV PRN ×2 (00:50→11:40)
[2017-06-22] MEDS: NUBAIN IV PRN ×2 (01:56→22:55)
[2017-06-22] MEDS: HUMALOG SUBQ SCH ×4 (06:22→20:57)
[2017-06-22] MEDS: ZOSYN 3.375 GM in NS 50 ML IV SCH ×5 (06:22→23:30)
--- NOTE | 2017-06-22 06:36 | EKG Report ---
Test Performed on : 06/21/2017 5:07:11 PM Test Reason : NO ORDER Blood Pressure : / mmHG Vent. Rate : 098 BPM Atrial Rate : 098 BPM P-R Int : 116 ms QRS Dur : 068 ms QT Int : 348 ms P-R-T Axes : 052 017 039 degrees QTc Int : 444 ms Normal sinus rhythm. Normal ECG When compared with ECG of 11-FEB-2017 12:59, No significant change was found Unconfirmed Result
[2017-06-22 07:12] LABS: MANUAL DIFF NEEDED? NO
[2017-06-22 07:17] LABS: BASO% 0.5 % (0.0-0.8); EOS# 0.45 X1000 (0.0-0.7); EOS% 7.4 % (0.0-10.0); HEMATOCRIT 33.1 % (42.0-52.0); HEMOGLOBIN 10.2 g/dL (14.0-18.0); LYMPH# 1.55 X1000 (1.2-3.4); LYMPH% 25.5 % (20.5-51.1); MCH 24.8 PG (27-31); MCHC 30.8 g/dL (33-37); MCV 80.3 FL (81-99); MONO# 0.47 X1000 (0.11-0.59); MONO% 7.7 % (1.7-9.3); MPV 11.5 FL (7.4-10.4); NEUT% 58.9 % (42.2-75.2); PLT 175 X1000 (130-400); RBC 4.12 XMIL (4.7-6.1)
[2017-06-22 07:34] LABS: AGAP 12; ALBUMIN 3.6 g/dL (3.5-5.0); ALKALINE PHOSPHATASE 37 U/L (32-122); BUN 6 mg/dL (8-22); CALCIUM 8.1 mg/dL (8.8-10.2); CHLORIDE 103 mmol/L (98-107); COSMO 288; GOT 14 U/L (10-34); GPT 13 U/L (10-44); POTASSIUM 3.7 mmol/L (3.5-5.1); SODIUM 142 mmol/L (136-145); TCO2 27 mmol/L (25-35); TOTAL BILIRUBIN 0.33 mg/dL (0.20-1.00); TOTAL PROTEIN 6.4 g/dL (6.3-8.3)
--- NOTE | 2017-06-22 07:38 | Diag Imaging Result Doc PS360 ---
EXAM: CHEST-2 VIEWS HISTORY: hypoxia TECHNIQUE: Two views of the chest COMMENT: There are bilateral small pleural effusions. This has worsened slightly on the left since the previous study of 06/21/2017. There is mild interstitial pulmonary edema. The heart size and pulmonary vascularity appear to be within normal limits. IMPRESSION: Pleural effusions and mild pulmonary edema. Electronically signed by Kvng Elkins 06/22/2017 7:36 AM
[2017-06-22] MEDS: BREO ELLIPTA 100/25 MCG INH INH SCH (08:18)
[2017-06-22] MEDS: TORADOL IV PRN ×3 (08:57→22:27)
[2017-06-22] MEDS: JANUVIA PO SCH (08:59)
[2017-06-22] MEDS: METAMUCIL PO SCH (09:00)
[2017-06-22] MEDS: ZOLOFT PO SCH (09:00)
[2017-06-22] MEDS: MIRALAX PO SCH ×2 (09:00→21:01)
--- NOTE | 2017-06-22 09:01 | PROGRESS NOTE ---
DATE: 06/22/2017 SUBJECTIVE: Patient asking for more pain medicines for cough. REVIEW OF SYSTEMS: Otherwise, none reported. OBJECTIVE: Vital Signs: Afebrile. Vitals are stable. Oxygen on room air 91%. HEENT Exam: Within normal limits. Neck: Supple. Chest: Decreased rhonchi on the right side. Heart: Sounds are regular. Abdomen: Belly is soft, nontender. Good bowel sounds. No masses palpable. INVESTIGATIONS: CBC: White cell count 6, hematocrit 33, platelets 175. SMA 7 is normal. Normal anion gap. Glucose 233. ProBNP 830. Blood cultures are pending. ASSESSMENT AND PLAN: 1. Right lower lobe aspiration pneumonia. Continue on intravenous antibiotics with Zosyn and Levaquin. 2. Chronic abdominal pain due to irritable bowel syndrome. We will use the Toradol and Nubain as needed. 3. Diabetes is stable. Follow up chest x-ray is improving. Continue present medical therapy. LEVEL OF DOCUMENTATION: 15 minutes. cc: Guerrero Belcher MD
[2017-06-22] MEDS: DUONEB (A & A) INH PRN ×3 (09:41→21:12)
[2017-06-22] MEDS: MAGNESIUM SULFATE 2 GM/S.W.I. 2 GM/50 ML IVPB IV ONE (10:48)
[2017-06-22] MEDS: SODIUM CHLORIDE 0.9% INJ SCH (11:49)
[2017-06-22] MEDS: NS 1,000 ML IV SCH ×3 (11:56→19:50)
[2017-06-22] MEDS: ROBITUSSIN-DM PO PRN ×2 (13:20→20:53)
[2017-06-22] MEDS: LEVAQUIN 500 MG/D5W 500 MG/100 ML IVPB IV SCH (20:54)
[2017-06-22] MEDS: LANTUS SUBQ SCH (20:59)
[2017-06-22] MEDS: PROTONIX IV SCH (21:01)
[2017-06-22] MEDS: LOVENOX SUBQ SCH (21:01)
[2017-06-22] MEDS: DESYREL PO SCH (21:03)
[2017-06-22] MEDS: AMBIEN PO SCH (21:04)
[2017-06-23] MEDS: ROBITUSSIN-DM PO PRN ×5 (01:17→23:59)
[2017-06-23] MEDS: ZOSYN 3.375 GM in NS 50 ML IV SCH ×4 (05:00→23:46)
[2017-06-23] MEDS: TORADOL IV PRN ×4 (05:02→23:46)
[2017-06-23] MEDS: HUMALOG SUBQ SCH ×4 (06:58→22:51)
[2017-06-23] MEDS: MIRALAX PO SCH ×2 (08:58→22:53)
[2017-06-23] MEDS: METAMUCIL PO SCH (08:58)
[2017-06-23] MEDS: JANUVIA PO SCH (08:58)
[2017-06-23] MEDS: ZOLOFT PO SCH (08:59)
[2017-06-23] MEDS: NS 1,000 ML IV SCH ×3 (09:08→23:08)
[2017-06-23] MEDS: DUONEB (A & A) INH PRN ×3 (11:31→20:02)
[2017-06-23] MEDS: BREO ELLIPTA 100/25 MCG INH INH SCH (11:31)
[2017-06-23] MEDS: ZOFRAN IV PRN (13:10)
[2017-06-23] MEDS: LEVAQUIN 500 MG/D5W 500 MG/100 ML IVPB IV SCH (22:42)
[2017-06-23] MEDS: DESYREL PO SCH (22:49)
[2017-06-23] MEDS: AMBIEN PO SCH (22:50)
[2017-06-23] MEDS: LANTUS SUBQ SCH (22:52)
[2017-06-23] MEDS: PROTONIX IV SCH (22:53)
[2017-06-23] MEDS: SODIUM CHLORIDE 0.9% INJ SCH (22:53)
[2017-06-23] MEDS: LOVENOX SUBQ SCH (23:00)
--- NOTE | 2017-06-24 00:02 | PROGRESS NOTE ---
DATE: 06/23/2017 SUBJECT: Patient is coughing, slowly improving intermittent belly pain asking for pain medicine. REVIEW OF SYSTEMS: None reported. PHYSICAL EXAMINATION: Vital Signs: Afebrile. Vitals are stable, 92% on room air. HEENT: Within normal limits. Neck: Supple. No lymphadenopathy. No goiter. Chest: Clear to auscultation. No rales, no wheezing. Heart: Sounds are regular. Belly: Soft, nontender, good bowel sounds. No masses palpable. Neuro: No obvious neurological deficits. INVESTIGATIONS: CBC, white cell count 6.0, hematocrit 33, platelets 175,000. SMA 7 is normal. Blood sugar is 230, proBNP 830. Chest x-ray is improving. ASSESSMENT AND PLAN: 1. Right lower lobe pneumonia most likely aspiration with asthma, bronchitis. Continue on Levaquin and Zosyn. 2. Type 2 diabetes on insulin. 3. History of chronic obstructive pulmonary disease/asthma on Breo. 4. DVT prophylaxis with Lovenox and if he tolerates the diet discontinue IV fluids in the morning. Continue the IV antibiotics. 5. Chronic abdominal pain. Previous workup is negative, was seen by Dr. Roper. Will very judiciously pain medicines not to give any Dilaudid and will follow up. LEVEL OF DOCUMENTATION: 15 minutes. cc: Guerrero Belcher MD
[2017-06-24] MEDS: NUBAIN IV PRN ×3 (02:33→16:56)
[2017-06-24] MEDS: DUONEB (A & A) INH PRN (04:05)
[2017-06-24] MEDS: ROBITUSSIN-DM PO PRN ×2 (05:06→22:01)
[2017-06-24] MEDS: ZOSYN 3.375 GM in NS 50 ML IV SCH ×3 (05:06→16:48)
[2017-06-24] MEDS: TORADOL IV PRN (06:02)
[2017-06-24] MEDS: HUMALOG SUBQ SCH ×5 (06:40→22:42)
[2017-06-24] MEDS: JANUVIA PO SCH (09:50)
[2017-06-24] MEDS: METAMUCIL PO SCH (09:51)
[2017-06-24] MEDS: ZOLOFT PO SCH (09:51)
[2017-06-24] MEDS: MIRALAX PO SCH ×2 (09:51→22:02)
--- NOTE | 2017-06-24 09:53 | PROGRESS NOTE ---
DATE: 06/24/2017 SUBJECTIVE: Patient says he is having pain diffusely. He is adamant he wants morphine or Dilaudid. Does not want Toradol. He does not feel like the Nubain is helping a great deal. OBJECTIVE: Vital Signs: Afebrile, pulse 97, blood pressure 152/68, respirations 20, O2 saturations 92% on room air. Cardiovascular: Regular rate and rhythm. Lungs: Decreased breath sounds at the bases, right greater than left. Cannot rule out minimal rhonchi at the right lung base. Abdomen: Protuberant, soft. Active bowel sounds. BM x3 documented this morning. He is eating 100% of his meals. Extremities: No calf tenderness or cords. Trace right lower extremity edema. Negative Homans testing. Neuro: Cranial nerves 2-12 intact. NF. LABS: Blood cultures x2 remain negative. Labs reviewed since admission. ASSESSMENT: 1. Right lower lobe infiltrate with suspected pneumonia. 2. Reactive airway disease. 3. Type 2 diabetes mellitus. 4. Chronic abdominal pain. PLAN: We will check a D-dimer and labs now. Continue prophylactic Lovenox for now. Change DuoNeb to q.4 hours scheduled. Continue Breo. Continue IV antibiotics in the form of Levaquin and Zosyn. Continue Nubain as he has discussed this with Dr. Belcher earlier and Dr. Belcher does not desire for him to have higher dose of narcotics. cc: MD Guerrero Coronado MD
[2017-06-24] MEDS: DUONEB (A & A) INH SCH ×5 (09:57→23:40)
[2017-06-24] MEDS: BREO ELLIPTA 100/25 MCG INH INH SCH (09:57)
[2017-06-24 12:10] LABS: MANUAL DIFF NEEDED? NO
[2017-06-24 12:16] LABS: BASO% 0.6 % (0.0-0.8); EOS# 0.29 X1000 (0.0-0.7); EOS% 5.8 % (0.0-10.0); HEMATOCRIT 32.6 % (42.0-52.0); HEMOGLOBIN 10.2 g/dL (14.0-18.0); IMM GRAN# 0.02 X1000 (0.0-0.04); IMM GRAN% 0.4 % (0.0-0.5); LYMPH% 17.9 % (20.5-51.1); MCH 24.9 PG (27-31); MCHC 31.3 g/dL (33-37); MCV 79.5 FL (81-99); MONO# 0.37 X1000 (0.11-0.59); MONO% 7.4 % (1.7-9.3); MPV 11.3 FL (7.4-10.4); NEUT% 67.9 % (42.2-75.2); PLT 203 X1000 (130-400)
[2017-06-24 12:37] LABS: AGAP 13; BUN 7 mg/dL (8-22); CALCIUM 7.8 mg/dL (8.8-10.2); CHLORIDE 107 mmol/L (98-107); COSMO 290; POTASSIUM 3.8 mmol/L (3.5-5.1); SODIUM 144 mmol/L (136-145); TCO2 24 mmol/L (25-35)
[2017-06-24] MEDS ORDERED: LASIX IV ONE (13:20)
[2017-06-24 13:40] LABS: ALLEN TEST NO; BE -1.1 mmoll (-3.0-3.0); BLOOD TYPE ARTERIAL; DRAW SITE R BRACHIAL; METHB 1.4 % (0.0-1.5); O2(CT) 13.5 mL/dL (15.0-23.0); PCO2(98.6) 38 mmHg (35-45); PO2(98.6) 60 mmHg (60-100); SAMPLE BLOOD; SAO2 95.4 % (95.0-100.0); THB 10.4 g/dL (11.5-17.4)
[2017-06-24 13:42] LABS: MODALITY CANNULA
--- NOTE | 2017-06-24 17:04 | Diag Imaging Result Doc PS360 ---
CT ANGIOGRM/PULMONARY ARTERIES - 06/24/2017 INDICATION: Shortness of breath TECHNIQUE: Axial CT images were obtained after administering intravenous contrast. Coronal MIP images were generated. A CT dose reduction protocol was used. COMPARISON: 07/01/2013 FINDINGS: There is mild mediastinal lymphadenopathy similar to prior. Heart and great vessels are normal. No pulmonary embolism. There are moderate pleural effusions bilaterally. There is some mild pulmonary edema bilaterally as well. Upper abdominal images are grossly normal. Airways are clear. Bony structures are intact. IMPRESSION: 1. Negative for pulmonary embolism. 2. Pulmonary edema and pleural effusions. Electronically signed by Ervin Browne 06/24/2017 5:01 PM
[2017-06-24] MEDS: LASIX IV SCH (19:53)
[2017-06-24] MEDS: LANTUS SUBQ SCH (22:06)
[2017-06-24] MEDS: LOVENOX SUBQ SCH (22:06)
[2017-06-24] MEDS: PROTONIX IV SCH (22:06)
[2017-06-24] MEDS: SODIUM CHLORIDE 0.9% INJ SCH (22:06)
[2017-06-24] MEDS: DESYREL PO SCH (22:07)
[2017-06-24] MEDS: KLOR-CON PO SCH (22:07)
[2017-06-24] MEDS: AMBIEN PO SCH (22:07)
[2017-06-25] MEDS: DUONEB (A & A) INH SCH ×6 (03:06→23:17)
[2017-06-25] MEDS: NUBAIN IV PRN ×3 (03:56→18:19)
[2017-06-25] MEDS: LASIX IV SCH ×2 (05:51→18:14)
[2017-06-25] MEDS: HUMALOG SUBQ SCH ×4 (06:00→21:24)
[2017-06-25] MEDS: ROBITUSSIN-DM PO PRN ×2 (06:53→21:24)
[2017-06-25 06:54] LABS: MANUAL DIFF NEEDED? NO
[2017-06-25 07:03] LABS: BASO% 0.6 % (0.0-0.8); EOS# 0.44 X1000 (0.0-0.7); EOS% 9.3 % (0.0-10.0); HEMATOCRIT 33.7 % (42.0-52.0); HEMOGLOBIN 10.9 g/dL (14.0-18.0); LYMPH# 1.24 X1000 (1.2-3.4); LYMPH% 26.2 % (20.5-51.1); MCH 25.6 PG (27-31); MCHC 32.3 g/dL (33-37); MCV 79.1 FL (81-99); MONO# 0.33 X1000 (0.11-0.59); MPV 11.3 FL (7.4-10.4); NEUT% 56.9 % (42.2-75.2); PLT 237 X1000 (130-400); RBC 4.26 XMIL (4.7-6.1)
[2017-06-25 07:18] LABS: AGAP 15; BUN 7 mg/dL (8-22); CALCIUM 8.6 mg/dL (8.8-10.2); CHLORIDE 99 mmol/L (98-107); COSMO 284; MAGNESIUM 1.5 mg/dL (1.5-2.7); POTASSIUM 3.5 mmol/L (3.5-5.1); SODIUM 140 mmol/L (136-145); TCO2 26 mmol/L (25-35)
[2017-06-25] MEDS: BREO ELLIPTA 100/25 MCG INH INH SCH (08:03)
[2017-06-25] MEDS: MIRALAX PO SCH ×2 (08:51→21:35)
[2017-06-25] MEDS: ZOLOFT PO SCH (08:51)
[2017-06-25] MEDS: KLOR-CON PO SCH ×2 (08:51→21:26)
[2017-06-25] MEDS: JANUVIA PO SCH (08:52)
[2017-06-25] MEDS: METAMUCIL PO SCH (08:52)
--- NOTE | 2017-06-25 11:44 | PROGRESS NOTE ---
DATE: 06/25/2017 SUBJECTIVE: Patient overall feeling better. He has received Lasix which has helped him tremendously. He is having less work of breathing. Patient was having work of breathing and discomfort yesterday. He denies pain in his chest. He does note that he has had some fluttering sensation in his chest with coughing on occasion over the last few days, he recalls. OBJECTIVE: Vital signs: Afebrile. Pulse 84, respirations 18, blood pressure 138/73, O2 saturation 94 to 95% on 2.5 L. CV: RRR. Lungs: CTA, much improved. Abdomen: Protuberant, nontender, nondistended. Extremities: No calf tenderness, cords, or edema. I's and O's: Show 200 in, 3400 output. Has eaten 75% to 100% of his meals. He is stooling well as he had 3 bowel movements yesterday. LAB DATA: Shows sodium 140, potassium 3.5, chloride 99, CO2 26, BUN 7, creatinine 0.8, glucose 213, magnesium 1.5. White count 4.73, hemoglobin 10.9, platelets 237,000. D-dimer was elevated yesterday at 1.63. ABG showed on 2.5 L, pH 7.40, pCO2 38, PO2 60. HCO3 24, O2 saturation 95.4%; that was yesterday prior to initiating treatment with Lasix. CT pulmonary angiogram yesterday after the elevated D-dimer was negative for pulmonary embolism but positive for pulmonary edema with pleural effusions. ASSESSMENT: 1. Pulmonary edema with bilateral pleural effusions/congestive heart failure. 2. Reactive airway disease. 3. Type 2 diabetes mellitus. 4. Chronic abdominal pain. 5. Palpitations. PLAN: We stopped his antibiotics yesterday. We are continuing as needed DuoNeb q.4 hours. We have him on a prophylactic dose of Lovenox which will be continued. Continue Breo. Continue rigorous doses of Lasix as initiated yesterday. Continue Nubain as needed for discomfort. Check echocardiogram tomorrow. Will place him on telemetry due to his history of some palpitations. Will check EKG as well due to the latter. Repeat chest x-ray in the morning. cc: MD Guerrero Coronado MD
[2017-06-25] MEDS: LANTUS SUBQ SCH (21:25)
[2017-06-25] MEDS: LOVENOX SUBQ SCH (21:26)
[2017-06-25] MEDS: DESYREL PO SCH (21:27)
[2017-06-25] MEDS: PROTONIX IV SCH (21:27)
[2017-06-25] MEDS: AMBIEN PO SCH (21:27)
[2017-06-25] MEDS: SODIUM CHLORIDE 0.9% INJ SCH (21:27)
[2017-06-26] MEDS: ROBITUSSIN-DM PO PRN ×3 (01:27→21:11)
[2017-06-26] MEDS: NUBAIN IV PRN ×3 (01:27→18:57)
[2017-06-26] MEDS: DUONEB (A & A) INH SCH ×6 (03:18→23:24)
--- NOTE | 2017-06-26 05:32 | EKG Report ---
Test Performed on : 06/25/2017 12:04:49 PM Test Reason : CP Blood Pressure : / mmHG Vent. Rate : 081 BPM Atrial Rate : 081 BPM P-R Int : 132 ms QRS Dur : 074 ms QT Int : 402 ms P-R-T Axes : 054 013 031 degrees QTc Int : 466 ms Normal sinus rhythm. Normal ECG When compared with ECG of 21-JUN-2017 17:07, (Unconfirmed) No significant change was found Nonspecific ST and T wave abnormality V1-V2 Confirmed by Kyle Infante DO ([id number]) on 06/27/2017 5:56:53 PM
[2017-06-26] MEDS: HUMALOG SUBQ SCH ×4 (06:22→21:20)
[2017-06-26] MEDS: LASIX IV SCH (06:22)
[2017-06-26] MEDS: BREO ELLIPTA 100/25 MCG INH INH SCH (07:52)
[2017-06-26 08:20] LABS: MANUAL DIFF NEEDED? NO
[2017-06-26 08:32] LABS: EOS# 0.46 X1000 (0.0-0.7); EOS% 7.4 % (0.0-10.0); HEMATOCRIT 37.4 % (42.0-52.0); HEMOGLOBIN 11.8 g/dL (14.0-18.0); LYMPH# 1.96 X1000 (1.2-3.4); LYMPH% 31.6 % (20.5-51.1); MCH 24.7 PG (27-31); MCHC 31.6 g/dL (33-37); MCV 78.2 FL (81-99); MONO# 0.56 X1000 (0.11-0.59); MPV 10.7 FL (7.4-10.4); PLT 299 X1000 (130-400); RBC 4.78 XMIL (4.7-6.1)
[2017-06-26 08:51] LABS: AGAP 14; BUN 8 mg/dL (8-22); CALCIUM 9.8 mg/dL (8.8-10.2); CHLORIDE 100 mmol/L (98-107); CK PROFILE 91 U/L (24-204); COSMO 285; POTASSIUM 3.8 mmol/L (3.5-5.1); SODIUM 144 mmol/L (136-145); TCO2 30 mmol/L (25-35)
--- NOTE | 2017-06-26 09:01 | PROGRESS NOTE ---
DATE: 06/26/2017 SUBJECTIVE: Events noted over the weekend. Patient developed shortness of breath due to volume overload. Fluids were stopped. The patient was given IV Lasix and I's and O's negative, -[address] pulmonary angiogram negative for PE with pulmonary edema and pleural effusion. No fever. No abdominal pain. PHYSICAL EXAMINATION: Vital Signs: Afebrile. Vitals are stable. 2 L nasal cannula 93%. HEENT: Exam within normal limits. Neck: Supple. Chest: Bilateral air entry. Heart: Sounds are regular. Abdomen: Belly is soft, nontender. Good bowel sounds. No masses palpable. Extremities: No peripheral edema, cyanosis. No obvious neurological deficits. INVESTIGATIONS: CBC, white cell count 4.7, hematocrit 33, platelets 237. ABG on room air was 93%. SMA 7 is normal. Magnesium 1.5. ASSESSMENT AND PLAN: 1. Aspiration pneumonia. Is improving. Dr. Alfaro stopped the antibiotics. 2. Deep vein thrombosis prophylaxis with Lovenox. 3. Shortness of breath due to pulmonary edema due to iatrogenic IV fluids. Decrease the Lasix 40 once a day and follow up chest x-ray, as well as cardiac enzymes and labs today. Discussed with the patient plan of care. Hopefully, will be discharged home in the morning. LEVEL OF DOCUMENTATION: 25 minutes. cc: Guerrero Belcher MD
--- NOTE | 2017-06-26 09:24 | ECHO REPORT ---
ORDER DATE: 06/26/2017 ECHOCARDIOGRAPHIC MEASUREMENTS: 1. Interventricular septum 0.9, left ventricular posterior wall 0.9, diastolic diameter 5.1, left atrium 4.1, aorta 3. Normal left ventricular cavity size. Estimated ejection fraction of 60- 65%. 2. Aortic valve leaflets are trileaflet. Mitral valve was normal. Tricuspid valve was normal. Pulmonic valve was normal. There is mild left atrial enlargement. 3. There is mild mitral regurgitation. Mild tricuspid regurgitation. Peak velocity across the tricuspid valve less than 2 m/sec. There is trace pulmonary regurgitation. 4. Peak velocity across the aortic valve less than 2 m/sec by Doppler studies. There is no aortic stenosis or regurgitation. 5. There is no pericardial effusion or obvious intracardiac mass or thrombus seen. cc: MD Ashwin Meza MD Jagan Reddy, MD
[2017-06-26] MEDS: ZOLOFT PO SCH (09:36)
[2017-06-26] MEDS: KLOR-CON PO SCH ×2 (09:36→21:09)
[2017-06-26] MEDS: METAMUCIL PO SCH (09:36)
[2017-06-26] MEDS: MIRALAX PO SCH ×2 (09:36→21:11)
[2017-06-26] MEDS: JANUVIA PO SCH (09:36)
--- NOTE | 2017-06-26 12:54 | Diag Imaging Result Doc PS360 ---
EXAM: CHEST-2 VIEWS INDICATION: hypoxia TECHNIQUE: 2 views COMPARISON: 06/22/2017 FINDINGS: There are bilateral small effusions similar to the previous study. There is suggestion of mild bibasilar atelectasis. Mild increased interstitial markings suggesting mild edema is unchanged. No new consolidations identified. Cardiac silhouette is stable. IMPRESSION: Stable chest. Electronically signed by Parish Dodd 06/26/2017 12:52 PM
[2017-06-26] MEDS ORDERED: INSULIN PEN NEEDLES ONE (17:16)
[2017-06-26] MEDS: ZOFRAN IV PRN (19:01)
[2017-06-26] MEDS: PROTONIX IV SCH (21:09)
[2017-06-26] MEDS: SODIUM CHLORIDE 0.9% INJ SCH (21:09)
[2017-06-26] MEDS: DESYREL PO SCH (21:09)
[2017-06-26] MEDS: AMBIEN PO SCH (21:10)
[2017-06-26] MEDS: LANTUS SUBQ SCH (21:10)
[2017-06-26] MEDS: LOVENOX SUBQ SCH (23:41)
[2017-06-27] MEDS: DUONEB (A & A) INH SCH ×6 (03:45→23:02)
[2017-06-27] MEDS: NUBAIN IV PRN ×3 (04:39→21:50)
[2017-06-27] MEDS: ZOFRAN IV PRN ×4 (05:06→23:47)
[2017-06-27] MEDS: HUMALOG SUBQ SCH ×4 (06:56→21:52)
[2017-06-27] MEDS: BREO ELLIPTA 100/25 MCG INH INH SCH (08:06)
--- NOTE | 2017-06-27 08:49 | PROGRESS NOTE ---
DATE: 06/27/2017 SUBJECTIVE: The patient is better. Belly is improving. No cough, no fever. Good diuresis after Lasix. OBJECTIVE: Vital Signs: He is negative so far 6 L. Hemodynamics were stable. Room air 94%. HEENT Exam: Within normal limits. Chest: Clear. Heart: Sounds are regular. Abdomen: Belly is soft, slightly tender in the left side. No signs of peritonitis. INVESTIGATIONS: CBC: White cell count 6.2, hematocrit 37, platelets 299. SMA 7: Sodium 144, potassium 3.8, chloride 100, BUN 8, creatinine 0.8, glucose 100, magnesium 1.6. Cardiac enzymes are normal. ProBNP is normal. ASSESSMENT AND PLAN: 1. Congestive heart failure due to volume overload. Echocardiography normal. LV systolic function. Normal proBNP. Decrease the Lasix once daily. 2. Aspiration pneumonia, improved off antibiotics. 3. Chronic belly pain. Possible to rule out mesenteric ischemia down the line if the symptoms continue to worsen. Advance the diet and will be discharged in the morning. LEVEL OF DOCUMENTATION: 25 minutes. cc: Guerrero Belcher MD
[2017-06-27] MEDS: ZOLOFT PO SCH (09:14)
[2017-06-27] MEDS: MIRALAX PO SCH ×2 (09:14→21:55)
[2017-06-27] MEDS: METAMUCIL PO SCH (09:14)
[2017-06-27] MEDS: KLOR-CON PO SCH ×2 (09:14→21:51)
[2017-06-27] MEDS: LASIX IV SCH (09:15)
[2017-06-27] MEDS: JANUVIA PO SCH (09:15)
[2017-06-27] MEDS: IMITREX PO PRN ×2 (11:28→23:48)
[2017-06-27] MEDS: ROBITUSSIN-DM PO PRN ×2 (14:12→21:52)
[2017-06-27] MEDS ORDERED: MAGNESIUM SULFATE 1 GM/D5W 1 GM/100 ML IVPB IV ONE (17:48)
[2017-06-27] MEDS: AMBIEN PO SCH (21:50)
[2017-06-27] MEDS: SODIUM CHLORIDE 0.9% INJ SCH (21:51)
[2017-06-27] MEDS: LANTUS SUBQ SCH (21:51)
[2017-06-27] MEDS: PROTONIX IV SCH (21:51)
[2017-06-27] MEDS: LOVENOX SUBQ SCH (21:52)
[2017-06-27] MEDS: DESYREL PO SCH (21:52)
[2017-06-28] MEDS: DUONEB (A & A) INH SCH ×2 (03:28→08:27)
[2017-06-28] MEDS: HUMALOG SUBQ SCH (06:40)
[2017-06-28 07:53] VITALS: BP 146/63
[2017-06-28] MEDS: LASIX IV SCH (07:59)
[2017-06-28] MEDS: ZOLOFT PO SCH (08:00)
[2017-06-28] MEDS: METAMUCIL PO SCH (08:00)
[2017-06-28] MEDS: JANUVIA PO SCH (08:00)
[2017-06-28] MEDS: KLOR-CON PO SCH (08:00)
[2017-06-28] MEDS: MIRALAX PO SCH (08:01)
[2017-06-28] MEDS: ZOFRAN IV PRN (08:02)
[2017-06-28] MEDS: NUBAIN IV PRN (08:02)
[2017-06-28] MEDS: BREO ELLIPTA 100/25 MCG INH INH SCH (08:27)
[2017-06-28] MEDS ORDERED: PNEUMOVAX 23 IM ONE (08:47)
--- NOTE | 2017-06-30 11:52 | DISCHARGE SUMMARY ---
ADMISSION DATE: 06/21/2017 DISCHARGE DATE: 06/28/2017 DISCHARGING DIAGNOSIS: Aspiration pneumonia. SECONDARY DIAGNOSES: 1. Congestive heart failure due to volume overload. 2. Chronic abdominal pain due to irritable bowel syndrome, with splenic diverticula and redundant colon. 3. Chronic obstructive pulmonary disease. 4. Type 2 diabetes. 5. Hypertension. 6. Gout. 7. Hyperlipidemia. 8. Hiatal hernia with esophagitis. 9. Reactive depression. BRIEF HISTORY: Please see the H and P that was done on 06/21/2017. In brief, he is a 61-year-old white gentleman readmitted to the hospital 2 days after recent discharge with fever, cough, congestion. Chest x-ray right lower lobe aspiration pneumonia. HOSPITAL COURSE: He was started on IV antibiotics, oxygen, bronchodilators. Hospital course was prolonged due to shortness of breath, swelling of feet. He had a volume overload. Subsequently, IV Lasix improved his symptoms. FURTHER WORKUP: ProBNP is normal. Echocardiography: Normal LV systolic function. Followup improved interval improvement of pneumonia. Antibiotics were stopped. He is tolerating the diet very well. There is no history of nausea or vomiting. He has a chronic left-sided abdominal pain. Further previous workup was completely essentially unremarkable. If he continues to have, we will do the CT mesenteric angiogram. At the time of discharge, patient is stable. LABS: CBC: White cell count 6.2, hematocrit 37, platelets 299,000. SMA-7: Sodium 144, potassium 3.8, chloride 100, BUN 8, creatinine 0.8, glucose 101. Cardiac enzymes were normal. ProBNP 300. Magnesium was low which was replaced. Echocardiography: Estimated EF 60%. No significant valvular heart disease seen. Blood cultures were negative. DISCHARGE INSTRUCTIONS: Pneumococcal vaccine 06/28/2017. Zoloft 50 daily, simvastatin 40 daily, losartan 100 daily, metformin 1000 p.o. b.i.d., trazodone 75 at bedtime, Januvia 100 daily, Ambien 5 mg at bedtime, Lantus 40 units at bedtime, Prilosec 40 daily, multivitamin 1 tablet daily, ProAir as needed, Breo 1 puff daily, MiraLAX 17 g p.o. b.i.d., Levaquin 500 daily, and Trulicity 0.75 once a week, Metamucil 1 capsule daily. Follow up in my office in 10 days. Jignesh#: [id number] cc: Guerrero Belcher MD
== END 2017-06-28 09:50 | disposition home or self-care (01) ==
LOC: ED 16:59 → 3N 21:59
PROVIDERS: ADMIT Internal Medicine; ATTEND Internal Medicine

== ENCOUNTER 2018-12-13 17:41 | Inpatient (IN) ==
[2018-12-13] MEDS ORDERED: VENTOLIN HFA INH PRN (19:26)
[2018-12-13] MEDS ORDERED: NON-FORMULARY MED (Dulaglutide [Trulicity] 1 DOSE) SQ SCH (19:30)
[2018-12-13 20:25] LABS: BASO# 0.06 X1000 (0.0-0.2); BASO% 0.6 % (0.0-0.8); EOS# 0.27 X1000 (0.0-0.7); EOS% 2.8 % (0.0-10.0); HEMATOCRIT 41.7 % (42.0-52.0); HEMOGLOBIN 13.4 g/dL (14.0-18.0); IMM GRAN# 0.03 X1000 (0.0-0.04); IMM GRAN% 0.3 % (0.0-0.5); LYMPH# 2.43 X1000 (1.2-3.4); LYMPH% 24.8 % (20.5-51.1); MCH 25.1 PG (27-31); MCHC 32.1 g/dL (33-37); MCV 78.2 FL (81-99); MONO# 0.46 X1000 (0.11-0.59); MONO% 4.7 % (1.7-9.3); MPV 11.3 FL (7.4-10.4); NEUT# 6.55 X1000 (1.4-6.5); NEUT% 66.8 % (42.2-75.2); PLT 247 X1000 (130-400); RBC 5.33 XMIL (4.7-6.1); RDW 15.9 % (11.5-14.5)
[2018-12-13 20:59] LABS: AGAP 15; BUN 14 mg/dL (8-22); CALCIUM 9.5 mg/dL (8.8-10.2); CHLORIDE 95 mmol/L (98-107); CK PROFILE 73 U/L (24-204); COSMO 276; CREATININE 0.8 mg/dL (0.7-1.2); ESTIMATED GFR > 60; GLUCOSE 334 mg/dL (70-104); MAGNESIUM 1.9 mg/dL (1.5-2.7); POTASSIUM 4.3 mmol/L (3.5-5.1); SODIUM 131 mmol/L (136-145); TCO2 21 mmol/L (25-35)
[2018-12-13] MEDS ORDERED: BASAGLAR SUBQ SCH (21:00)
[2018-12-13] MEDS: DESYREL PO SCH (21:30)
[2018-12-13] MEDS: AMBIEN PO SCH (21:30)
[2018-12-13] MEDS: HUMALOG SUBQ SCH (21:31)
[2018-12-13] MEDS: DILAUDID IV PRN (21:31)
[2018-12-13] MEDS: ZOCOR PO SCH (21:43)
[2018-12-13] MEDS: BASAGLAR SUBQ SCH (21:43)
[2018-12-13] MEDS: PROTONIX IV SCH (21:43)
[2018-12-13] MEDS: NS 1,000 ML IV SCH (21:43)
[2018-12-13] MEDS: ZOLOFT PO SCH (21:43)
[2018-12-13] MEDS: LOVENOX SUBQ SCH (21:44)
[2018-12-13] MEDS: GLUCOPHAGE PO SCH (22:30)
[2018-12-14] MEDS: DILAUDID IV PRN ×7 (01:10→21:19)
--- NOTE | 2018-12-14 04:06 | HISTORY AND PHYSICAL ---
CHIEF COMPLAINT: Intractable right-sided back pain, palpitations and dizziness. Blood sugar 520. HISTORY OF PRESENT ILLNESS: 1. The patient is a 63-year-old white gentleman who walked in my office with the above symptoms. Blood sugar is 520. He was extremely tachycardic. 2. He had a CT myelogram done by Dr. Vallejo. He has been suffering from right sciatica pain since 09/22/2018. Outpatient MRI showed right L5 neuroforaminal stenosis. He was given epidural steroid injection and intermittent pain medications without any help. 3. The patient also had an elevated blood sugar at 500. Basically admitted to the hospital for pain control, control blood sugar, evaluation of palpitations and rule out ischemic heart disease. PAST MEDICAL HISTORY: 1. COPD. 2. Type 2 diabetes. 3. Metabolic syndrome. 4. Hypertension. 5. Acid reflux disease. 6. IBS. 7. Depression. 8. Hyperlipidemia. 9. Intractable back pain due to right L5 nerve root compression. 10. History of shingles on the right trigeminal nerve, better. PAST SURGICAL HISTORY: Cholecystectomy, bilateral inguinal hernia repair, right shoulder surgery, sinus surgery. ALLERGIES: Erythromycin. SOCIAL HISTORY: for 23 years. One son. 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 He lives in [place]. No smoking. No alcohol. FAMILY HISTORY: Father of diabetic complications and chronic kidney disease. Mom of COPD, hypertension and diabetes. HEALTH MAINTENANCE: Flu vaccine on 11/07/2017, pneumococcal on 06/01/2017. MEDICATIONS: Zoloft 50 daily, simvastatin 40 daily, Cozaar 100 daily, metformin 1000 p.o. b.i.d., trazodone 75 at bedtime, Januvia 100 daily, Ambien 5 at bedtime, Lantus 40 units subcutaneous at bedtime, Prilosec 40 daily, multivitamin 1 tablet daily, ProAir as needed, Breo 100/25 daily, Trulicity 0.75 mg once a week, polyethylene glycol 17 g daily. REVIEW OF SYSTEMS: HEENT: No headache. No vision problem. No earache. No sore throat. Neck: No goiter. No lymphadenopathy. No bruit. Cardiopulmonary: No chest pain or palpitations. No PND. No orthopnea. No wheezing. Gastrointestinal: No nausea, vomiting or abdominal pain. No altered bowel habits or bleeding per rectum. Genitourinary: No dysuria, urgency, frequency and no swelling of legs. Back: Intractable back pain. Integument: No skin rashes. Neurological: No neurological symptoms or weakness. PHYSICAL EXAMINATION: VITAL SIGNS: Temperature is 97 degrees and tachycardic, blood pressure is 149/ 88. Height is 5 feet 5 inches. Weight is 185 pounds. HEENT: Atraumatic and normocephalic. Pupils are equal and reactive to light. TMs are normal. Nose and throat within normal limits. NECK: Supple. No lymphadenopathy. JVD is normal. CHEST: Bilateral air entry. No wheezing. HEART: Sounds are tachycardic. No murmur. ABDOMEN: Belly is soft, obese, nontender. Good bowel sounds. EXTREMITIES: No peripheral edema or cyanosis. NEUROLOGICAL: No obvious neurological deficits. INVESTIGATIONS: CBC: White cell count 9.8, hematocrit 41, platelets 247,000. SMA 7 is normal. Glucose, 334. Cardiac enzymes and free T4 is normal. EKG in my office sinus tachycardic nothing acute. ASSESSMENT AND PLAN: 1. The patient is a 63-year-old white male who came into the hospital with palpitations and initial workup is negative. If he continues to be symptomatic we will do a cardiac stress test. 2. Uncontrolled diabetes. Intravenous fluids. Insulin with the present regimen with Lantus, metformin and Januvia. 3. Intractable back pain and right sciatica due to right L5 nerve root compression. We will follow up with Dr. Zheng and Dr. Choi. CT myelography findings not known and he said is going to see Dr. Choi when he comes back from vacation. 4. Reconcile home medications. 5. Deep venous thrombosis prophylaxis with Lovenox. cc: Guerrero Belcher MD [facility]
[2018-12-14] MEDS: HUMALOG SUBQ SCH ×4 (06:27→21:23)
[2018-12-14] MEDS ORDERED: INSULIN PEN NEEDLES ONE (07:12)
[2018-12-14] MEDS: THERA M PLUS PO SCH (07:59)
[2018-12-14] MEDS: COZAAR PO SCH (07:59)
[2018-12-14] MEDS: GLUCOPHAGE PO SCH ×2 (07:59→17:22)
[2018-12-14] MEDS: JANUVIA PO SCH (07:59)
[2018-12-14] MEDS: BASAGLAR SUBQ SCH ×2 (08:00→21:26)
[2018-12-14] MEDS: MIRALAX PO SCH (08:01)
[2018-12-14] MEDS: NS 1,000 ML IV SCH ×2 (08:12→21:19)
[2018-12-14] MEDS: BREO ELLIPTA 100/25 MCG INH INH SCH (08:36)
[2018-12-14] MEDS ORDERED: MULTI-VITAMIN PO SCH (09:00)
[2018-12-14] MEDS: ZOFRAN IV PRN ×3 (15:47→23:37)
--- NOTE | 2018-12-14 20:32 | PROGRESS NOTE ---
DATE: 12/14/2018 SUBJECT: Patient complains of back pain. No palpitation, no chest pain. Telemetry strips were reviewed basically sinus. EXAMINATION: Temperature is 97 degrees, tachycardic. Vitals are stable.HEENT: Within normal limits. Chest: Clear. Heart: Sounds are regular. Belly: Is soft, nontender. No obvious deficits noted. Blood sugars are coming down. ASSESSMENT AND PLAN: 1. Right sciatica pain. Continue on Dilaudid. 2. Nausea added Zofran. 3. Uncontrolled diabetes. Continue on the Lantus and sliding scale. 4. Dehydration, IV fluids. 5. Palpitations, compliance monitor, so far no signs of ischemia noted. LEVEL OF DOCUMENTATION: 25 minutes. cc: Guerrero Belcher MD
[2018-12-14] MEDS: ZOLOFT PO SCH (21:24)
[2018-12-14] MEDS: ZOCOR PO SCH (21:24)
[2018-12-14] MEDS: AMBIEN PO SCH (21:24)
[2018-12-14] MEDS: DESYREL PO SCH (21:24)
[2018-12-14] MEDS: SODIUM CHLORIDE 0.9% INJ SCH (21:25)
[2018-12-14] MEDS: PROTONIX IV SCH (21:25)
[2018-12-14] MEDS: LOVENOX SUBQ SCH (21:25)
[2018-12-15] MEDS: DILAUDID IV PRN ×8 (00:33→21:05)
[2018-12-15] MEDS: ZOFRAN IV PRN ×5 (03:42→21:05)
[2018-12-15] MEDS: HUMALOG SUBQ SCH ×4 (06:33→21:45)
[2018-12-15] MEDS: GLUCOPHAGE PO SCH ×2 (07:44→16:13)
[2018-12-15] MEDS: THERA M PLUS PO SCH ×2 (07:44→16:18)
[2018-12-15] MEDS: JANUVIA PO SCH ×2 (07:44→16:18)
[2018-12-15] MEDS: COZAAR PO SCH ×2 (07:45→16:18)
[2018-12-15] MEDS: BREO ELLIPTA 100/25 MCG INH INH SCH (07:50)
[2018-12-15] MEDS: MIRALAX PO SCH (08:01)
[2018-12-15] MEDS: BASAGLAR SUBQ SCH ×2 (08:01→21:46)
[2018-12-15] MEDS: NS 1,000 ML IV SCH (09:39)
--- NOTE | 2018-12-15 13:52 | PROGRESS NOTE ---
DATE: 12/15/2018 SUBJECTIVE: The patient still has intractable back pain. No palpitations. No chest pain. OBJECTIVE: Vital signs: On examination, his vital signs are stable. HEENT: Within normal limits. Neck: Supple. Chest: Clear. Heart: Sounds are regular. Abdomen : Belly is soft, nontender. Neurologic: SLR positive on the right side. No deficits noted. ASSESSMENT AND PLAN: 1. Right sciatica pain. On IV Dilaudid. 2. Uncontrolled diabetes. Change the insulin. He is on Trulicity, Lantus 30 units at bedtime, and also consider long-acting insulin 20 units in the morning. IV fluids. 3. Palpitations. Cardiac enzymes were negative. Continue present treatment. Hopefully will follow up with Dr. Choi ]when he comes back from vacation. LEVEL OF DOCUMENTATION: 25 minutes. cc: Guerrero Belcher MD [facility]
[2018-12-15] MEDS: SODIUM CHLORIDE 0.9% INJ SCH (21:46)
[2018-12-15] MEDS: AMBIEN PO SCH (21:46)
[2018-12-15] MEDS: ZOCOR PO SCH (21:46)
[2018-12-15] MEDS: LOVENOX SUBQ SCH (21:46)
[2018-12-15] MEDS: ZOLOFT PO SCH (21:46)
[2018-12-15] MEDS: DESYREL PO SCH (21:46)
[2018-12-15] MEDS: PROTONIX IV SCH (21:46)
[2018-12-16] MEDS: NS 1,000 ML IV SCH (00:04)
[2018-12-16] MEDS: ZOFRAN IV PRN ×6 (00:55→22:57)
[2018-12-16] MEDS: DILAUDID IV PRN ×8 (02:55→21:51)
[2018-12-16] MEDS: HUMALOG SUBQ SCH ×4 (06:07→21:50)
[2018-12-16] MEDS: BREO ELLIPTA 100/25 MCG INH INH SCH (07:44)
[2018-12-16] MEDS: GLUCOPHAGE PO SCH ×2 (08:56→17:48)
[2018-12-16] MEDS: COZAAR PO SCH (08:56)
[2018-12-16] MEDS: BASAGLAR SUBQ SCH ×2 (08:57→21:43)
[2018-12-16] MEDS: MIRALAX PO SCH (08:57)
[2018-12-16] MEDS: JANUVIA PO SCH (08:57)
[2018-12-16] MEDS: THERA M PLUS PO SCH (08:57)
--- NOTE | 2018-12-16 16:12 | PROGRESS NOTE ---
DATE: 12/16/2018 SUBJECTIVE: Patient has intractable back pain requiring IV pain medicine. REVIEW OF SYSTEMS: None reported. PHYSICAL EXAMINATION: Temperature is 97 degrees. Vitals are stable.HEENT: Within normal limits. Neck: Supple. Chest: Clear. Heart: Sounds are regular. Abdomen: Belly is soft and nontender. Right sciatica pain with positive straight leg raise test. Blood sugars running 300. ASSESSMENT AND PLAN: 1. Uncontrolled diabetes increasing the insulin 30 units twice daily along with metformin. 2. Deep vein thrombosis prophylaxis with Lovenox. 3. Gastrointestinal prophylaxis with IV Protonix. Continue home medicines. 4. Palpitations stable on potline monitor asymptomatic. 5. Constipation. MiraLAX. 6. We will attempt to call Dr. Choi's office for this back pain. LEVEL OF DOCUMENTATION: 15 minutes. cc: Guerrero Belcher MD
[2018-12-16] MEDS: AMBIEN PO SCH (21:42)
[2018-12-16] MEDS: DESYREL PO SCH (21:42)
[2018-12-16] MEDS: LOVENOX SUBQ SCH (21:43)
[2018-12-16] MEDS: SODIUM CHLORIDE 0.9% INJ SCH (21:43)
[2018-12-16] MEDS: ZOCOR PO SCH (21:43)
[2018-12-16] MEDS: PROTONIX IV SCH (21:43)
[2018-12-16] MEDS: ZOLOFT PO SCH (21:43)
[2018-12-17] MEDS: ZOFRAN IV PRN ×4 (04:24→22:27)
[2018-12-17] MEDS: DILAUDID IV PRN ×6 (04:24→23:29)
[2018-12-17] MEDS: HUMALOG SUBQ SCH ×4 (06:14→21:39)
[2018-12-17] MEDS: BREO ELLIPTA 100/25 MCG INH INH SCH (08:02)
[2018-12-17] MEDS ORDERED: INSULIN PEN NEEDLES ONE (08:14)
[2018-12-17] MEDS: JANUVIA PO SCH (09:59)
[2018-12-17] MEDS: GLUCOPHAGE PO SCH ×2 (09:59→16:49)
[2018-12-17] MEDS: BASAGLAR SUBQ SCH ×2 (09:59→21:32)
[2018-12-17] MEDS: COZAAR PO SCH (10:00)
[2018-12-17] MEDS: MIRALAX PO SCH (10:00)
[2018-12-17] MEDS: THERA M PLUS PO SCH (10:10)
--- NOTE | 2018-12-17 19:30 | PROGRESS NOTE ---
DATE: 12/17/2018 SUBJECTIVE: Continues to have right sciatica pain. His is going to call Dr. Choi Blood sugars running a little bit high. EXAM: Vital signs: Temperature is 98, vitals are stable. Chest: Clear. Heart: Sounds are regular. Abdomen: Belly is soft, nontender. Good bowel sounds. No obvious neurological deficits. ASSESSMENT AND PLAN: 1. Uncontrolled diabetes. Increasing the Lantus 30 units subcu b.i.d. 2. Right sciatica pain. Continue on IV Dilaudid. 3. Hypertension is stable. We will transfer the care to the Spine and Neuro when he is medically stable. LEVEL OF DOCUMENTATION: 15 minutes. cc: Guerrero Belcher MD [facility]
[2018-12-17] MEDS: ZOLOFT PO SCH (21:32)
[2018-12-17] MEDS: PROTONIX IV SCH (21:32)
[2018-12-17] MEDS: ZOCOR PO SCH (21:32)
[2018-12-17] MEDS: DESYREL PO SCH (21:32)
[2018-12-17] MEDS: LOVENOX SUBQ SCH (21:33)
[2018-12-17] MEDS: AMBIEN PO SCH (21:37)
[2018-12-18] MEDS: DILAUDID IV PRN ×7 (02:30→20:57)
[2018-12-18] MEDS: ZOFRAN IV PRN ×5 (02:30→20:58)
[2018-12-18] MEDS: HUMALOG SUBQ SCH ×4 (06:09→21:15)
[2018-12-18] MEDS: BREO ELLIPTA 100/25 MCG INH INH SCH (08:14)
[2018-12-18] MEDS: MIRALAX PO SCH (08:51)
[2018-12-18] MEDS: COZAAR PO SCH (08:51)
[2018-12-18] MEDS: BASAGLAR SUBQ SCH ×2 (08:52→21:04)
[2018-12-18] MEDS: JANUVIA PO SCH (08:52)
[2018-12-18] MEDS: GLUCOPHAGE PO SCH ×2 (08:52→17:45)
[2018-12-18] MEDS: THERA M PLUS PO SCH (08:52)
[2018-12-18] MEDS: ZOCOR PO SCH (20:57)
[2018-12-18] MEDS: DESYREL PO SCH (21:03)
[2018-12-18] MEDS: AMBIEN PO SCH (21:03)
[2018-12-18] MEDS: LOVENOX SUBQ SCH (21:04)
[2018-12-18] MEDS: PROTONIX IV SCH (21:17)
[2018-12-18] MEDS: SODIUM CHLORIDE 0.9% INJ SCH (21:18)
[2018-12-18] MEDS: ZOLOFT PO SCH (21:22)
--- NOTE | 2018-12-18 21:46 | PROGRESS NOTE ---
DATE: 12/18/2018 SUBJECTIVE: Patient is ambulating with right leg swelling. Asking for morphine. No palpitations. EXAMINATION: Vitals: Stable. HEENT: Within normal limits. Neck: Supple. Chest: Clear. Heart: Heart sounds are regular. Abdomen: Belly is soft, nontender. Neurologic: No obvious neurological deficits. ASSESSMENT AND PLAN: 1. Right sciatica pain. On IV Dilaudid. 2. Diabetes is stable. 3. Deep vein thrombosis prophylaxis. Right leg swelling. We will get venous Doppler studies in the right leg tomorrow. Continue present treatment. 4. palpitations. Continue playground monitor. No need for any further workup. LEVEL OF DOCUMENTATION: 25 minutes. cc: Guerrero Belcher MD [facility]
[2018-12-19] MEDS: DILAUDID IV PRN ×5 (00:01→11:31)
[2018-12-19] MEDS: ZOFRAN IV PRN ×3 (01:04→08:37)
[2018-12-19] MEDS: HUMALOG SUBQ SCH ×4 (06:41→21:51)
[2018-12-19] MEDS: BREO ELLIPTA 100/25 MCG INH INH SCH (07:47)
[2018-12-19] MEDS: MIRALAX PO SCH (08:32)
[2018-12-19] MEDS: GLUCOPHAGE PO SCH ×2 (08:37→16:24)
[2018-12-19] MEDS: COZAAR PO SCH (08:37)
[2018-12-19] MEDS: JANUVIA PO SCH (08:37)
[2018-12-19] MEDS: THERA M PLUS PO SCH (08:37)
[2018-12-19] MEDS: BASAGLAR SUBQ SCH ×2 (08:38→21:51)
[2018-12-19] MEDS ORDERED: ZOFRAN PO PRN ×2 (11:36→11:40)
[2018-12-19] MEDS: ZOFRAN PO PRN ×2 (13:49→18:51)
[2018-12-19] MEDS: NORCO-10 PO PRN ×3 (13:50→22:03)
--- NOTE | 2018-12-19 18:39 | PROGRESS NOTE ---
DATE: 12/19/2018 SUBJECTIVE: The patient has right leg swelling. Pain is not better Will change to the p.o. medication by [place] by mouth. EXAMINATION: Vital Signs: Stable. HEENT: Within normal limits. Neck: Supple. Chest: Clear. Heart: Heart sounds are regular. Abdomen: Belly is soft, nontender. Good bowel sounds and no obvious deficits noted. ASSESSMENT AND PLAN: 1. Right-sided calf pain. Changing to [place]. 2. Right leg swelling. Venous Dopplers. 3. Diabetes, hypertension stable. LEVEL OF DOCUMENTATION: 15 minutes. cc: Guerrero Belcher MD [facility]
[2018-12-19] MEDS: AMBIEN PO SCH (21:50)
[2018-12-19] MEDS: SODIUM CHLORIDE 0.9% INJ SCH (21:50)
[2018-12-19] MEDS: ZOLOFT PO SCH (21:50)
[2018-12-19] MEDS: PROTONIX IV SCH (21:50)
[2018-12-19] MEDS: DESYREL PO SCH (21:50)
[2018-12-19] MEDS: ZOCOR PO SCH (21:50)
[2018-12-19] MEDS: LOVENOX SUBQ SCH (21:50)
[2018-12-20] MEDS: NORCO-10 PO PRN ×3 (02:38→10:29)
[2018-12-20] MEDS: ZOFRAN PO PRN (04:55)
[2018-12-20] MEDS: HUMALOG SUBQ SCH (06:57)
[2018-12-20] MEDS: BREO ELLIPTA 100/25 MCG INH INH SCH (07:34)
[2018-12-20 07:41] VITALS: BP 136/84
[2018-12-20] MEDS: THERA M PLUS PO SCH (08:35)
[2018-12-20] MEDS: JANUVIA PO SCH (08:35)
[2018-12-20] MEDS: COZAAR PO SCH (08:35)
[2018-12-20] MEDS: BASAGLAR SUBQ SCH (08:35)
[2018-12-20] MEDS: GLUCOPHAGE PO SCH (08:35)
[2018-12-20] MEDS: MIRALAX PO SCH (08:36)
--- NOTE | 2018-12-20 16:04 | Extremity Venous Study ---
PROCEDURE NAME: Venous U/S Right Leg - 12/19/2018 PROCEDURE: Right lower extremity venous images. DESCRIPTION OF PROCEDURE IN DETAIL: Patient complains of edema in the right lower extremity. The right lower extremity is imaged. The common femoral, superficial femoral, deep femoral, popliteal, posterior tibial, peroneal, and greater saphenous veins are imaged. The left common femoral vein is imaged for comparison purposes. Doppler is used to evaluate the veins for spontaneity, phasicity, respiratory excursion, distal augmentation. All veins are compressible. No intraluminal clot is seen. INTERPRETATION: No evidence of deep or superficial venous thrombosis in the right lower extremity veins identified. This study has not changed compared to 10/04/2018. cc: MD Guerrero Corona MD
--- NOTE | 2018-12-22 22:53 | DISCHARGE SUMMARY ---
ADMISSION DATE: 12/13/2018 DISCHARGE DATE: 12/20/2018 DISCHARGING DIAGNOSIS: Intractable right back pain due to right L4-L5 neuroforaminal stenosis. SECONDARY DIAGNOSES: 1. Palpitations due to sinus tachycardia. 2. Chronic obstructive pulmonary disease/asthma. 3. Uncontrolled diabetes. 4. Metabolic syndrome. 5. Hypertension. 6. Acid reflux disease. 7. Irritable bowel syndrome. 8. Depression. 9. Dementia. 10. Right leg swelling. Venous Doppler's negative for deep venous thrombosis. BRIEF HISTORY: Please see the H and P that was done on 12/13/2018. In brief, he is a 63-year-old white gentleman who was admitted to the hospital with palpitations, elevated blood sugars at 500, intractable back pain. Patient recently had a CT myelogram showed he was not a definitive candidate for surgery. He was getting steroid injection that is worsening of blood sugars, and basically admitted to the hospital with uncontrolled blood sugar, pain control. HOSPITAL COURSE: 1. During the hospital course, I did optimize insulin treatment. IV fluids was given. 2. Patient requiring IV Dilaudid followed by [facility]. He is going to follow up with Dr. Choi for other options. If things will not improve, we will refer to the chronic pain specialist with Dr. Ga. LABS: CBC: White cell count 9.8, hematocrit 41, platelets 247,000. SMA-7: Sodium 131, potassium 4.3, BUN 14, creatinine 0.8. Cardiac enzymes were normal. ProBNP, thyroid function tests were normal. DISCHARGE INSTRUCTIONS ARE FOLLOWS: 1. Zoloft 50 mg daily, simvastatin 40 daily, Cozaar 100 daily, metformin 1000 p.o. b.i.d., trazodone 75 at bedtime, Januvia 100 daily, Ambien 5 mg at bedtime, Prilosec 40 daily, multivitamin 1 tablet daily, ProAir HFA 1 g q.6 hours p.r.n. pain, Trulicity 0.75 subcu once a week, MiraLAX 17 g daily, Lantus increased to 30 units subcutaneous b.i.d., [place] 5 q.6 hours p.r.n. pain. 2. Follow up with Dr. Choi or the Pain clinic with Dr. Ga. cc: Guerrero Belcher MD
== END 2018-12-20 13:06 | disposition home or self-care (01) | DRG 552 ==
LOC: DIRADM 17:41 → 3N 18:27
PROVIDERS: ADMIT Internal Medicine; ATTEND Internal Medicine
CPT/HCPCS: 80048; 82550; 82948; 83735; 83880; 84439; 84484; 85025; 93971; 94640; 94760; 94761; A9270; C9113; J1170; J1650; J1815; J2405; J7030; S0164; XXXXX

== ENCOUNTER 2019-07-25 16:58 | Inpatient (IN) ==
[2019-07-25] MEDS: FLAGYL 500 MG/NS 500 MG/100 ML IVPB IV SCH (19:15)
[2019-07-25] MEDS: SODIUM CHLORIDE 0.9% INJ SCH (19:15)
[2019-07-25] MEDS: PEPCID IV SCH (19:15)
[2019-07-25] MEDS: NS 1,000 ML IV SCH (19:16)
[2019-07-25] MEDS: OFIRMEV 1000 MG/ISOTONIC SOLN 1,000 MG/100 ML BOTTLE IV PRN (19:24)
[2019-07-25] MEDS ORDERED: MORPHINE IV PRN ×2 (20:14→20:45)
[2019-07-25] MEDS: ZOFRAN IV PRN (20:56)
[2019-07-25] MEDS: HUMALOG SUBQ SCH (21:00)
[2019-07-25] MEDS ORDERED: VENTOLIN HFA INH PRN (21:39)
[2019-07-25] MEDS: AMBIEN PO SCH (22:13)
[2019-07-25] MEDS: FLEXERIL PO SCH (22:13)
[2019-07-25] MEDS: NEURONTIN PO SCH (22:13)
[2019-07-25] MEDS: ZOLOFT PO SCH (22:24)
[2019-07-25] MEDS: DESYREL PO SCH (22:26)
--- NOTE | 2019-07-25 22:42 | HISTORY AND PHYSICAL ---
CHIEF COMPLAINT: Hematochezia and left lower quadrant pain. HISTORY OF PRESENT ILLNESS: He is a 63-year-old white gentleman who came to my office with hematochezia and left lower quadrant pain. Heme-positive stools. He had a previous colonoscopy by Dr. Thomason in February, which was unremarkable. Flat and upright of the abdomen showed some constipation and ileus. Hemodynamics were stable, and CBC showed hematocrit 39 and also white cell count is normal. Basically admitted to the hospital for lower GI bleeding and follow up. Most likely diverticular bleeding. PAST MEDICAL HISTORY: 1. COPD. 2. Type 2 diabetes. 3. Metabolic syndrome. 4. Hypertension. 5. Acid reflux disease. 6. IBS. 7. Depression. 8. Hyperlipidemia. 9. Intractable back pain with right L5 nerve root compression, status post L4-L5 fusion. PAST SURGICAL HISTORY: Cholecystectomy, bilateral inguinal hernia repair, right shoulder surgery, sinus surgery, back surgery. MEDICATIONS: Zoloft 50 mg daily. Cozaar 100 daily. Metformin 1000 p.o. b.i.d. trazodone 150 at bedtime. Ambien 5 mg at bedtime. Multivitamin 1 tablet daily. Trulicity once a week. MiraLAX 17 g daily. Gabapentin 300 t.i.d. Tresiba 70 units subcutaneous in the morning. Lexapro 10 mg daily. Breo 1 puff daily. Prilosec 40 mg daily. Ventolin HFA as needed. ALLERGIES: Erythromycin. SOCIAL HISTORY: for 23 years, 1 son. 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 Lives in [place]. No smoking. No alcohol. FAMILY HISTORY: Father of diabetic complications and chronic kidney disease. Mom of COPD, hypertension, diabetes. HEALTH MAINTENANCE: Flu vaccine 11/07/2018. Pneumococcal 06/01/2017. REVIEW OF SYSTEMS: HEENT: No headache. No vision problem. No earache. No sore throat. Neck: No goiter. No lymphadenopathy. No bruit. Cardiopulmonary: No chest pain, shortness of breath, cough, wheezing. Gastrointestinal: Left lower abdominal pain, bleeding per rectum. Musculoskeletal: Chronic back pain stable. Neurological: No neurological symptoms or weakness. Decreased sensory exam in both feet. PHYSICAL EXAMINATION: VITAL SIGNS: Temperature is 98.4 degrees, pulse 76, vitals are stable, 93% on room air. Height 5 feet 5 inches, weight 182 pounds. HEENT: Atraumatic, normocephalic. Pupils equally reactive to light. TMs are normal. Nose and throat within normal limits. NECK: Supple. No lymphadenopathy. No goiter. CHEST: Bilateral air entry. HEART: Sounds are regular. No murmur. ABDOMEN: Belly is soft, nontender. No signs of peritonitis. Heme-positive stools. EXTREMITIES: No peripheral edema or cyanosis. NEUROLOGICAL: No obvious neurological deficits. INVESTIGATIONS: CBC, SMA-7 normal. Flat and upright of the abdomen: No free air in the diaphragm. Nonspecific air/gas pattern and constipation noted. ASSESSMENT AND PLAN: A 63-year-old white gentleman admitted to the hospital with: 1. Left lower quadrant pain with hematochezia and had a colonoscopy done in February by Dr. Thomason, reported normal colon, anastomosis is normal, esophageal stricture. Presumed to be diverticular bleeding. Plan of care is serial hematocrits and Flagyl, and if no better, consider CT of the abdomen and pelvis. No narcotics. We will give IV Tylenol. 2. Type 2 diabetes, on clear liquids. Cut down the Tresiba to 50 units and follow up on sliding scale with insulin coverage. 3. GI prophylaxis with IV Pepcid, IV fluids. 4. Reconcile home medications. 5. Repeat the labs in the morning. We will follow up with clinical course. cc: Guerrero Belcher MD [facility]
[2019-07-25] MEDS: MORPHINE IV PRN (23:13)
[2019-07-26] MEDS: MORPHINE IV PRN ×5 (01:21→10:32)
[2019-07-26] MEDS: ZOFRAN IV PRN ×2 (01:25→13:21)
[2019-07-26] MEDS: FLAGYL 500 MG/NS 500 MG/100 ML IVPB IV SCH ×3 (02:04→17:40)
[2019-07-26] MEDS: PEPCID IV SCH ×2 (06:06→17:40)
[2019-07-26] MEDS ORDERED: INSULIN PEN NEEDLES ONE (06:47)
[2019-07-26 07:08] LABS: BASO# 0.06 X1000 (0.0-0.2); BASO% 0.8 % (0.0-0.8); EOS# 0.58 X1000 (0.0-0.7); EOS% 7.9 % (0.0-10.0); HEMATOCRIT 35.4 % (42.0-52.0); HEMOGLOBIN 10.8 g/dL (14.0-18.0); IMM GRAN# 0.02 X1000 (0.0-0.04); IMM GRAN% 0.3 % (0.0-0.5); LYMPH# 2.86 X1000 (1.2-3.4); MCH 20.5 PG (27-31); MCHC 30.5 g/dL (33-37); MCV 67.2 FL (81-99); MONO# 0.59 X1000 (0.11-0.59); MPV 10.1 FL (7.4-10.4); NEUT# 3.23 X1000 (1.4-6.5); PLT 263 X1000 (130-400); RBC 5.27 XMIL (4.7-6.1); RDW 21.7 % (11.5-14.5); WBC 7.34 X1000 (4.8-10.8)
[2019-07-26 07:20] LABS: AGAP 16; BUN 13 mg/dL (8-22); CALCIUM 8.4 mg/dL (8.8-10.2); CHLORIDE 99 mmol/L (98-107); COSMO 276; CREATININE 0.8 mg/dL (0.7-1.2); ESTIMATED GFR > 60; GLUCOSE 137 mg/dL (70-104); SODIUM 137 mmol/L (136-145); TCO2 22 mmol/L (25-35)
[2019-07-26] MEDS: HUMALOG SUBQ SCH ×4 (07:43→21:26)
[2019-07-26] MEDS ORDERED: TRESIBA FLEXTOUCH U-100 SUBQ SCH (09:00)
--- NOTE | 2019-07-26 09:49 | Diag Imaging Result Doc PS360 ---
EXAM: CT ABD/PELVIS W/IV CONT ONLY INDICATION: Abdominal pain TECHNIQUE: This exam was performed using automated exposure control, adjustment of mA or kV according to patient size, and/or use of iterative reconstruction technique. COMPARISON: 06/12/2017 FINDINGS: There is a small focus of groundglass opacity involving the right middle lobe suggesting nonspecific focal pneumonitis. There is also subsegmental atelectasis at both lung bases. There has been a prior cholecystectomy. The liver, spleen, pancreas, and adrenal glands are essentially unremarkable. There are a couple of tiny simple appearing renal cysts bilaterally. The kidneys are unremarkable, otherwise. The urinary bladder is unremarkable. There is evidence of a prior appendectomy. There are a few fluid-filled loops of small bowel with small air-fluid levels. There is only mild distention. Consider mild ileus related to enteritis. However, no discrete bowel wall thickening is identified. There is nothing that would no sterilely indicate obstruction. The remainder of the GI tract is grossly unremarkable. No focal inflammatory changes, free abdominal gas, or free fluid is appreciated. There is surgical mesh at the ventral abdominal wall. There is moderate aortoiliac atherosclerotic calcification. There are postsurgical and degenerative changes involving the lumbar spine. There is no evidence of acute osseous abnormality. IMPRESSION: 1.Fluid-filled loops of small bowel with small air-fluid levels and mild distention that are nonspecific but likely represent ileus, perhaps related to mild enteritis. There is nothing that would suggest obstruction. 2.Small groundglass focus in the right middle lobe near the base suggesting mild nonspecific focal pneumonitis. 3.Other incidental/nonacute findings detailed above. Electronically signed by Parish Dodd 07/26/2019 9:47 AM
[2019-07-26] MEDS: MIRALAX PO SCH (10:24)
[2019-07-26] MEDS: CENTRUM SILVER PO SCH (10:24)
[2019-07-26] MEDS: NEURONTIN PO SCH ×3 (10:24→21:36)
[2019-07-26] MEDS: NS 1,000 ML IV SCH (10:56)
[2019-07-26] MEDS: BREO ELLIPTA 100/25 MCG INH INH SCH (11:46)
[2019-07-26] MEDS: NUBAIN IV PRN ×2 (13:20→21:32)
[2019-07-26] MEDS: TRESIBA FLEXTOUCH U-100 SUBQ SCH (13:30)
[2019-07-26] MEDS: DESYREL PO SCH (21:35)
[2019-07-26] MEDS: AMBIEN PO SCH (21:36)
[2019-07-26] MEDS: ZOLOFT PO SCH (21:36)
[2019-07-26] MEDS: FLEXERIL PO SCH (21:36)
[2019-07-27] MEDS: NS 1,000 ML IV SCH ×2 (00:29→13:28)
[2019-07-27] MEDS: FLAGYL 500 MG/NS 500 MG/100 ML IVPB IV SCH ×3 (00:50→18:24)
[2019-07-27] MEDS: ZOFRAN IV PRN ×3 (00:50→23:16)
[2019-07-27] MEDS: PEPCID IV SCH ×2 (06:32→18:24)
[2019-07-27] MEDS: SODIUM CHLORIDE 0.9% INJ SCH (06:32)
[2019-07-27] MEDS: NUBAIN IV PRN ×3 (06:41→22:23)
[2019-07-27] MEDS: HUMALOG SUBQ SCH ×4 (07:25→22:05)
[2019-07-27] MEDS: BREO ELLIPTA 100/25 MCG INH INH SCH (08:23)
[2019-07-27] MEDS ORDERED: TRESIBA FLEXTOUCH U-100 SUBQ SCH (09:00)
[2019-07-27] MEDS: TRESIBA FLEXTOUCH U-100 SUBQ SCH (10:41)
[2019-07-27] MEDS: NEURONTIN PO SCH ×3 (10:41→21:31)
[2019-07-27] MEDS: CENTRUM SILVER PO SCH (10:41)
[2019-07-27] MEDS: MIRALAX PO SCH (10:41)
--- NOTE | 2019-07-27 12:40 | PROGRESS NOTE ---
DATE: 07/27/2019 SUBJECTIVE: The patient still complains of belly pain. No signs of active bleeding. PHYSICAL EXAMINATION: Vital signs: Temperature is 98 degrees, pulse 78. Vitals are stable. HEENT: Within normal limits. Neck: Supple. No lymphadenopathy. No goiter. Chest: Bilateral air entry. Heart: Sounds are regular. Abdomen: Belly is soft, slightly tender. No signs of peritonitis. Neurologic: No neurological deficits. INVESTIGATIONS: CBC: White cell count 7.3, hematocrit 35, platelets 263,000. SMA 7 is normal. No labs were done. CT findings were discussed. ASSESSMENT AND PLAN: 1. Hematochezia, stable. Check the labs in the morning. Continue IV Flagyl. 2. Judicious use of narcotics. 3. Advance the diet. 4. Diabetes is stable on Tresiba. 5. Chronic obstructive pulmonary disease and asthma, stable. 6. Follow up on the labs. If stable, we will discharge in the morning. 7. History of back surgery, recovering on physical therapy. LEVEL OF DOCUMENTATION: 25 minutes. cc: Guerrero Belcher MD
[2019-07-27] MEDS ORDERED: NUBAIN IV ONE (18:07)
[2019-07-27] MEDS: ZOLOFT PO SCH (21:31)
[2019-07-27] MEDS: DESYREL PO SCH (21:31)
[2019-07-27] MEDS: FLEXERIL PO SCH (21:31)
[2019-07-27] MEDS: AMBIEN PO SCH (21:32)
[2019-07-28] MEDS: NS 1,000 ML IV SCH ×2 (01:20→16:49)
[2019-07-28] MEDS: FLAGYL 500 MG/NS 500 MG/100 ML IVPB IV SCH ×3 (01:20→16:53)
[2019-07-28] MEDS: PEPCID IV SCH ×2 (05:00→16:53)
[2019-07-28 06:38] LABS: BASO# 0.04 X1000 (0.0-0.2); BASO% 0.7 % (0.0-0.8); EOS# 0.49 X1000 (0.0-0.7); EOS% 8.2 % (0.0-10.0); HEMATOCRIT 33.5 % (42.0-52.0); HEMOGLOBIN 9.8 g/dL (14.0-18.0); IMM GRAN# 0.05 X1000 (0.0-0.04); IMM GRAN% 0.8 % (0.0-0.5); LYMPH# 1.87 X1000 (1.2-3.4); LYMPH% 31.3 % (20.5-51.1); MCH 20.2 PG (27-31); MCHC 29.3 g/dL (33-37); MCV 68.9 FL (81-99); MONO# 0.47 X1000 (0.11-0.59); MONO% 7.9 % (1.7-9.3); MPV 10.7 FL (7.4-10.4); NEUT# 3.06 X1000 (1.4-6.5); NEUT% 51.1 % (42.2-75.2); PLT 239 X1000 (130-400); RBC 4.86 XMIL (4.7-6.1); RDW 21.6 % (11.5-14.5); WBC 5.98 X1000 (4.8-10.8)
[2019-07-28] MEDS: HUMALOG SUBQ SCH ×4 (06:44→22:36)
[2019-07-28 07:07] LABS: AGAP 10; BUN 6 mg/dL (8-22); CALCIUM 8.1 mg/dL (8.8-10.2); CHLORIDE 105 mmol/L (98-107); COSMO 282; CREATININE 0.7 mg/dL (0.7-1.2); ESTIMATED GFR > 60; GLUCOSE 221 mg/dL (70-104); SODIUM 139 mmol/L (136-145); TCO2 24 mmol/L (25-35)
[2019-07-28] MEDS: ZOFRAN IV PRN ×4 (07:57→22:36)
[2019-07-28] MEDS: NUBAIN IV PRN ×3 (07:57→22:36)
[2019-07-28] MEDS: TRESIBA FLEXTOUCH U-100 SUBQ SCH (08:00)
[2019-07-28] MEDS: NEURONTIN PO SCH ×3 (08:00→22:34)
[2019-07-28] MEDS: MIRALAX PO SCH (08:00)
[2019-07-28] MEDS: CENTRUM SILVER PO SCH (08:00)
[2019-07-28] MEDS: BREO ELLIPTA 100/25 MCG INH INH SCH (08:13)
--- NOTE | 2019-07-28 14:06 | PROGRESS NOTE ---
DATE: 07/28/2019 SUBJECTIVE: The patient is doing very well. The patient complains of coughing and pain. Symptoms are out of proportion. Wants Dr. Thomason to look at. He is still bleeding per rectum and pain. PHYSICAL EXAMINATION: Vital Signs: Temperature is 98 degrees. Vitals are stable; 95% on room air. HEENT: Within normal limits. Neck: Supple. No lymphadenopathy. Chest: Bilateral air entry. Heart: Sounds are regular. Abdomen: Belly is soft, nontender. No signs of peritonitis. INVESTIGATIONS: CBC: White cell count 5.9, hematocrit 33.5, platelets 239,000, SMA-7 is normal. ASSESSMENT AND PLAN: 1. Hematochezia. Previous colonoscopy negative in February by Dr. Thomason. No signs of active GI bleeding. 2. Abdominal pain. CT findings normal. Asking for more pain medicine. Very judicious use of narcotics. We will ask Dr. Thomason for a second opinion. 3. Diabetes. Doing very well. Continue IV Flagyl and IV Tylenol. Nubain as needed. 4. Constipation. MiraLAX as directed and will follow up. LEVEL OF DOCUMENTATION: 25 minutes. cc: Guerrero Belcher MD
[2019-07-28] MEDS: FLEXERIL PO SCH (22:34)
[2019-07-28] MEDS: AMBIEN PO SCH (22:34)
[2019-07-28] MEDS: ZOLOFT PO SCH (22:35)
[2019-07-28] MEDS: DESYREL PO SCH (22:35)
[2019-07-29] MEDS: FLAGYL 500 MG/NS 500 MG/100 ML IVPB IV SCH ×3 (01:57→17:25)
--- NOTE | 2019-07-29 04:46 | PROGRESS NOTE ---
DATE: 07/26/2019 SUBJECT: The patient complains of bleeding per rectum, abdominal pain, asking for more narcotics and the symptoms are out of proportion. Blood sugars running a little bit high. PHYSICAL EXAMINATION: Temperature is 98 degrees, pulse 73, blood pressure stable, 94% room air.HEENT: Within normal limits. Chest: Clear. Heart: Sounds are regular. Belly: Soft, nontender. No signs of peritonitis. LABS: CBC. White cell count 7.3, hematocrit 35, platelets 263,000. SMA 7 is normal. ASSESSMENT AND PLAN: 1. Hematochezia, left-sided abdominal pain. Follow up on CT scan of the abdomen and pelvis. Judicious use of narcotics and refraining from using Dilaudid. 2. Diabetes on Tresiba 50 units at bedtime. Continue IV fluids and continue IV Flagyl and chronic obstructive pulmonary disease stable . 3. Deep vein thrombosis prophylaxis with antithrombotic stockings. Continue on clear liquids, if no better consider GI consult. LEVEL OF DOCUMENTATION: 25 minutes. cc: Guerrero Belcher MD
[2019-07-29] MEDS: HUMALOG SUBQ SCH ×4 (06:24→21:18)
[2019-07-29] MEDS: PEPCID IV SCH ×2 (06:24→17:25)
[2019-07-29] MEDS: NUBAIN IV PRN ×3 (06:25→21:59)
[2019-07-29] MEDS: ZOFRAN IV PRN ×2 (06:25→22:13)
[2019-07-29 07:23] LABS: BASO# 0.04 X1000 (0.0-0.2); BASO% 0.6 % (0.0-0.8); EOS# 0.48 X1000 (0.0-0.7); EOS% 6.7 % (0.0-10.0); HEMATOCRIT 34.7 % (42.0-52.0); HEMOGLOBIN 10.2 g/dL (14.0-18.0); IMM GRAN# 0.05 X1000 (0.0-0.04); IMM GRAN% 0.7 % (0.0-0.5); LYMPH# 2.29 X1000 (1.2-3.4); LYMPH% 31.9 % (20.5-51.1); MCH 20.2 PG (27-31); MCHC 29.4 g/dL (33-37); MCV 68.8 FL (81-99); MONO# 0.61 X1000 (0.11-0.59); MONO% 8.5 % (1.7-9.3); MPV 10.6 FL (7.4-10.4); NEUT% 51.6 % (42.2-75.2); PLT 235 X1000 (130-400); RBC 5.04 XMIL (4.7-6.1); RDW 21.9 % (11.5-14.5); WBC 7.17 X1000 (4.8-10.8)
[2019-07-29] MEDS: BREO ELLIPTA 100/25 MCG INH INH SCH (07:50)
[2019-07-29] MEDS: TRESIBA FLEXTOUCH U-100 SUBQ SCH (10:18)
[2019-07-29] MEDS: NEURONTIN PO SCH ×3 (10:19→22:04)
[2019-07-29] MEDS: MIRALAX PO SCH (11:43)
[2019-07-29] MEDS: OFIRMEV 1000 MG/ISOTONIC SOLN 1,000 MG/100 ML BOTTLE IV PRN ×2 (11:58→21:59)
[2019-07-29] MEDS: NS 1,000 ML IV SCH (13:48)
[2019-07-29] MEDS ORDERED: GOLYTELY PO ONE (14:00)
[2019-07-29] MEDS: CENTRUM SILVER PO SCH (14:08)
--- NOTE | 2019-07-29 17:36 | CONSULTATION ---
DATE OF CONSULTATION: 07/29/2019 REASON FOR CONSULT: Rectal bleeding. HISTORY OF PRESENT ILLNESS: Mr. Graham is a 63-year-old male who has been admitted to the hospital for abdominal pain, GI bleed, rectal bleeding, nausea, vomiting, diarrhea. He came to the hospital on . He said that he had diarrhea, had been going at least 6 to 7 times. Today he had at least 3 bowel movements. Denied noticing any blood in the stools today but stated it was dark brown. He had flu like symptoms and feels weak. Patient was noted to be Anemic. PAST MEDICAL HISTORY: COPD, type 2 diabetes, metabolic syndrome, hypertension, acid reflux, IBS, depression, hyperlipidemia, intractable back pain. PAST SURGICAL HISTORY: Cholecystectomy, bilateral inguinal hernia repair, right shoulder surgery, sinus surgery, back surgery, and colon resection. MEDICATIONS: Zoloft, Cozaar, metformin, trazodone, Ambien, multivitamin, Trulicity, MiraLAX, gabapentin, hydrocodone, Tresiba, Flexeril, fluticasone, Breo, methylcellulose, albuterol, and omeprazole. ALLERGIES: Erythromycin base and adhesive tape. SOCIAL HISTORY: He is and has 1 son. 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 Denies smoking but drinks occasionally. FAMILY HISTORY: Father had diabetes and chronic kidney disease, and mom had COPD, hypertension, diabetes. REVIEW OF SYSTEMS: As per HPI. Otherwise, 12 point review of systems is negative. PHYSICAL EXAMINATION: Vital Signs: Temperature is 98.0 degrees, pulse is 82, respirations are 18, blood pressure 127/60, oxygen is 90% on room air. Weight 181.7 pounds, BMI 30.3. General: He is alert, oriented x3, and in no acute distress. HEENT: Pale conjunctivae. No icterus. PERRL. Neck: Supple. Lungs: Clear to auscultation in anterior and posterior mcgowan. Uses rescue inhaler and nebulizer. Cardiovascular: Regular rate and rhythm. No murmurs, rubs, or gallops heard on auscultation. Abdomen: Soft, distended. Generalized left lower quadrant pain. Extremities: No edema, clubbing, or cyanosis. 2+ pedal pulses present bilaterally. Neurological: Alert and oriented x3. Nonfocal. Cranial nerves 2-12 grossly intact. IMAGING: CT of the abdomen and pelvis showed fluid-filled loops in small bowel and small ground- glass focus in the right middle lobe. ASSESSMENT: 1. Abdominal pain. 2. Type 2 diabetes. 3. Chronic obstructive pulmonary disease. 4. Gastrointestinal bleed. 5. Anemia. 6. Rectal bleeding. 7. Diarrhea/constipation PLAN: The patient's hemoglobin on admission was 10.8, today it is 10.2. Hematocrit was 35.4, today it is 34.7. We are planning to do a colonoscopy tomorrow. He is currently on a clear liquid diet, n.p.o. after midnight and golytely prep. He us on antibiotic Flagyl, and antiemetics for nausea and vomiting, we will continue his GI prophylaxis. His diabetes and COPD is managed by his PCP. He is getting IV fluids, normal saline at 50 mL.We will continue to monitor his CBC and BMP. Risks, benefits and alternatives of the procedure has been discussed, patient acknowledges understanding of the plan of care. Further plan of care with be done based on the colonoscopy findings. This plan was discussed with Dr. Roper. Thank you for the consultation. Please call us for any further questions or concerns. Dictated by DYLLAN Mathews for Arya Roper MD cc: MD Guerrero Larsen MD I have seen the patient myself and agree with the above plan of care. Please call us with any further questions or concerns. BRODY
--- NOTE | 2019-07-29 19:25 | PROGRESS NOTE ---
DATE: 07/29/2019 SUBJECTIVE: The patient continues to have rectal bleeding and abdominal pain symptoms Previous colonoscopy is negative. GI consult was obtained. PHYSICAL EXAMINATION: Vital Signs: Temperature is 98 degrees. Vitals are stable. HEENT: Within normal limits. Neck: Supple. Chest: Bilateral air entry. Heart: Sounds are regular belly is soft, nontender. Good bowel sounds. Neurologic: No neurological deficits. INVESTIGATIONS: CBC: White cell count 7.1, hematocrit 34, platelets 235,000. ASSESSMENT AND PLAN: 1. Left lower quadrant pain, hematochezia. Stable CBC. Consult Dr. Thomason. Continue IV fluids. 2. Diabetes is stable. Continue IV Flagyl. 3. Diabetes on Tresiba, but will follow up. LEVEL OF DOCUMENTATION: 25 minutes. cc: Guerrero Belcher MD MTDD
[2019-07-29] MEDS: AMBIEN PO SCH (22:04)
[2019-07-29] MEDS: DESYREL PO SCH (22:04)
[2019-07-29] MEDS: FLEXERIL PO SCH (22:05)
[2019-07-29] MEDS: ZOLOFT PO SCH (22:05)
[2019-07-30] MEDS: FLAGYL 500 MG/NS 500 MG/100 ML IVPB IV SCH ×3 (02:54→16:51)
[2019-07-30] MEDS: SODIUM CHLORIDE 0.9% INJ SCH ×2 (05:12→16:51)
[2019-07-30] MEDS: OFIRMEV 1000 MG/ISOTONIC SOLN 1,000 MG/100 ML BOTTLE IV PRN ×2 (05:12→14:42)
[2019-07-30] MEDS: PEPCID IV SCH ×2 (05:12→16:51)
[2019-07-30] MEDS: NUBAIN IV PRN ×3 (05:28→20:34)
[2019-07-30] MEDS: HUMALOG SUBQ SCH ×4 (06:15→21:00)
[2019-07-30] MEDS ORDERED: DIPRIVAN 1% ONE (07:17)
[2019-07-30] MEDS ORDERED: ROBINUL ONE (07:18)
[2019-07-30] MEDS ORDERED: XYLOCAINE-MPF 2% ONE (07:18)
[2019-07-30] MEDS ORDERED: VERSED ONE (08:18)
--- NOTE | 2019-07-30 08:41 | ENDOSCOPY OPERATIVE NOTE ---
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 PROCEDURE PERFORMED: Colonoscopy with biopsy MEDICATIONS: Per Anesthesia PREP TYPE: GoLytely
[2019-07-30] MEDS: TRESIBA FLEXTOUCH U-100 SUBQ SCH (08:59)
[2019-07-30] MEDS: CENTRUM SILVER PO SCH (08:59)
[2019-07-30] MEDS: NEURONTIN PO SCH ×3 (08:59→20:35)
[2019-07-30] MEDS: MIRALAX PO SCH (09:00)
[2019-07-30] MEDS ORDERED: INSULIN PEN NEEDLES ONE (09:04)
[2019-07-30] MEDS: ZOFRAN IV PRN ×2 (14:46→20:34)
[2019-07-30] MEDS: FLEXERIL PO SCH (20:35)
[2019-07-30] MEDS: ZOLOFT PO SCH (20:35)
[2019-07-30] MEDS: DESYREL PO SCH (20:36)
[2019-07-30] MEDS: AMBIEN PO SCH (22:05)
--- NOTE | 2019-07-31 | PROGRESS NOTE ---
DATE: 07/30/2019 SUBJECTIVE: The patient went to endoscopy procedure by Dr. Corey and intermittent bleeding per rectum, abdominal pain. PHYSICAL EXAM: Temperature is 98 degrees. Vitals are stable.HEENT: Within normal limits. Neck: Supple. Chest: Bilateral air entry. Heart: Sounds are regular. Physical exam no change. ASSESSMENT AND PLAN: 1. Abdominal pain, hematochezia. Follow up on endoscopy findings. Dr. Corey reported is internal hemorrhoids. 2. Judicious use of narcotics. Diabetes is uncontrolled and if he is stable will discharge in the morning. LEVEL OF DOCUMENTATION: [15] cc: Guerrero Belcher MD MTDD
[2019-07-31] MEDS: NS 1,000 ML IV SCH (01:31)
[2019-07-31] MEDS: FLAGYL 500 MG/NS 500 MG/100 ML IVPB IV SCH (01:44)
[2019-07-31] MEDS: NUBAIN IV PRN (04:05)
[2019-07-31] MEDS: PEPCID IV SCH ×2 (04:06→06:40)
[2019-07-31] MEDS: ZOFRAN IV PRN (04:06)
[2019-07-31] MEDS: OFIRMEV 1000 MG/ISOTONIC SOLN 1,000 MG/100 ML BOTTLE IV PRN (04:06)
[2019-07-31] MEDS: HUMALOG SUBQ SCH (06:41)
[2019-07-31] MEDS: BREO ELLIPTA 100/25 MCG INH INH SCH (07:37)
[2019-07-31 08:06] VITALS: BP 132/60
[2019-07-31] MEDS: MIRALAX PO SCH (08:59)
[2019-07-31] MEDS: CENTRUM SILVER PO SCH (08:59)
[2019-07-31] MEDS: NEURONTIN PO SCH (08:59)
[2019-07-31] MEDS: TRESIBA FLEXTOUCH U-100 SUBQ SCH (08:59)
--- NOTE | 2019-08-02 05:00 | DISCHARGE SUMMARY ---
ADMISSION DATE: 07/25/2019 DISCHARGE DATE: 07/31/2019 DISCHARGING DIAGNOSES: 1. Hematochezia due to hemorrhoids. 2. Left lower quadrant pain, probably due to irritable bowel syndrome. OTHER DIAGNOSES: 1. Asthmatic bronchitis. 2. Type 2 diabetes metabolic syndrome. 3. Hypertension. 4. Acid reflux disease. 5. Depression. 6. Hyperlipidemia. 7. Chronic back pain status post L4-L5 fusion. CONSULTATIONS: Dr. Corey. PROCEDURES: Colonoscopy reported negative except hemorrhoids. BRIEF HISTORY: Please see the H and P that was done on 07/25/2019. In brief, he is a 63-year-old white gentleman who basically came in with hematochezia and left lower quadrant pain. The patient was very tender. The patient had slowly declining CBC from 39 to 34. No obvious signs of bleeding noted. His symptoms are out of proportion with underlying IBS. I did relay that Dr. Corey and Dr. Roper said stay away from narcotics, it will exacerbate his constipation and hemorrhoids. The patient was given hydrocortisone suppositories. The rest of the hospital course was uneventful. LABORATORY: CBC: White cell count 7.1, hematocrit 34.7, and platelets 235,000. Sodium 139, potassium 4.0, chloride 105, BUN 6, creatinine 0.7 and glucose 221. Stool cultures were negative. The patient did receive pneumococcal vaccine 23 on 06/28/2017. DISCHARGE INSTRUCTIONS: 1. Judicious use of narcotics. 2. Zoloft 50 at bedtime. 3. Losartan 100 daily. 4. Metformin 1000 p.o. b.i.d. 5. Trazodone 150 at bedtime. 6. Ambien 5 mg at bedtime. 7. Multivitamin 1 tablet daily. 8. Trulicity 0.75 once a week. 9. MiraLAX 17 g daily. 10. Neurontin 300 t.i.d. 11. Tresiba 70 units in the morning. 12. Flexeril 10 at bedtime. 13. Breo 1 puff daily. 14. Cellulose fiber 500 p.o. b.i.d. 15. Proventil as needed. 16. Prilosec 40 mg daily. 17. Hydrocortisone suppositories 25 mg at bedtime. FOLLOW UP: Follow up in my office next week. cc: MD Martin Elias MD
== END 2019-07-31 09:26 | disposition home or self-care (01) | DRG 379 ==
LOC: DIRADM 16:58 → 4N 17:57
PROVIDERS: ADMIT Internal Medicine; ATTEND Internal Medicine

== ENCOUNTER 2019-09-20 13:26 | Inpatient (IN) ==
[2019-09-20] MEDS ORDERED: TYLENOL PO PRN (14:23)
[2019-09-20] MEDS: NUBAIN IV PRN ×2 (14:44→23:43)
[2019-09-20 14:50] LABS: BASO# 0.03 X1000 (0.0-0.2); BASO% 0.2 % (0.0-0.8); EOS# 0.04 X1000 (0.0-0.7); EOS% 0.2 % (0.0-10.0); HEMATOCRIT 35.9 % (42.0-52.0); IMM GRAN# 0.06 X1000 (0.0-0.04); IMM GRAN% 0.3 % (0.0-0.5); LYMPH# 2.03 X1000 (1.2-3.4); LYMPH% 11.2 % (20.5-51.1); MCH 20.7 PG (27-31); MCHC 30.6 g/dL (33-37); MCV 67.5 FL (81-99); MONO# 0.89 X1000 (0.11-0.59); MONO% 4.9 % (1.7-9.3); MPV 10.1 FL (7.4-10.4); NEUT# 15.15 X1000 (1.4-6.5); NEUT% 83.2 % (42.2-75.2); PLT 259 X1000 (130-400); RBC 5.32 XMIL (4.7-6.1); RDW 20.6 % (11.5-14.5)
[2019-09-20 15:11] LABS: AGAP 19; ALB/GLOB RATIO 1.5; ALBUMIN 4.6 g/dL (3.5-5.0); ALKALINE PHOSPHATASE 79 U/L (32-122); BUN 17 mg/dL (8-22); CALCIUM 9.1 mg/dL (8.8-10.2); CHLORIDE 98 mmol/L (98-107); COSMO 281; CREATININE 0.9 mg/dL (0.7-1.2); ESTIMATED GFR > 60; GLUCOSE 228 mg/dL (70-104); GOT 23 U/L (10-34); GPT 27 U/L (10-44); POTASSIUM 4.6 mmol/L (3.5-5.1); SODIUM 136 mmol/L (136-145); TCO2 19 mmol/L (25-35); TOTAL BILIRUBIN 0.28 mg/dL (0.20-1.00); TOTAL PROTEIN 7.7 g/dL (6.3-8.3)
[2019-09-20 15:20] LABS: EOS 1 % (1-10); LYMPHS 20 % (21-51); MONO 1 % (1-9); SEGS 78 % (42-75)
[2019-09-20 15:21] LABS: ANISOCYTOSIS 1+; HYPOCHROM 1+; MICROCYTOSIS 2+
[2019-09-20] MEDS ORDERED: VENTOLIN HFA INH PRN (17:27)
[2019-09-20] MEDS ORDERED: SODIUM CHLORIDE 0.9% INJ SCH (17:30)
[2019-09-20] MEDS ORDERED: ZITHROMAX 500 MG/NS 500 MG/250 ML IVPB IV SCH ×2 (18:00→18:30)
[2019-09-20] MEDS: PROTONIX IV SCH (18:23)
[2019-09-20] MEDS: ROCEPHIN 1 GM in NS 50 ML IV SCH (18:23)
[2019-09-20] MEDS: TORADOL IV PRN (18:24)
--- NOTE | 2019-09-20 20:32 | HISTORY AND PHYSICAL ---
CHIEF COMPLAINT: Fever to 102, shortness of breath, cough, and wheezing. HISTORY OF PRESENT ILLNESS: He is a 63-year-old, white gentleman, basically came in with a fever with the above symptoms. Chest x-ray is stable. He is wheezing. Flu was negative. Admitted to the hospital with acute asthma exacerbation. White cell count 18,000. PAST MEDICAL HISTORY: 1. COPD. 2. Asthma. 3. Type 2 diabetes, metabolic syndrome. 4. Hypertension. 5. Acid reflux disease. 6. IBS. 7. Depression. 8. Hyperlipidemia. 9. Recently recovering from back pain surgery. PAST SURGICAL HISTORY: Cholecystectomy, bilateral inguinal hernia repair, right shoulder surgery, sinus surgery, back surgery, status post L4-L5 fusion. ALLERGIES: Erythromycin. SOCIAL HISTORY: for 23 years, 1 son. 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 He lives in [place]. No smoking. No alcohol. FAMILY HISTORY: Father of diabetic complications, chronic kidney disease. Mom of COPD, hypertension, diabetes. HEALTH MAINTENANCE: Flu vaccine, 11/07/2018. Pneumococcal, 06/01/2017. MEDICATIONS: Zoloft 50 mg daily, losartan 100 daily, metformin 1000 p.o. b.i.d., Trazodone 150 at bedtime, Ambien 5 mg at bedtime, multivitamin 1 tablet daily, Trulicity 0.75 once a week, MiraLAX 17 g daily, gabapentin 300 t.i.d., Tresiba 70 units subcu daily in the morning, Flexeril 10 daily, Breo 1 puff daily, FiberSource 1 tablet p.o. b.i.d., Prilosec 40 daily, Jardiance 25 mg daily. REVIEW OF SYSTEMS: HEENT: No headache. No vision problems. No earache. No sore throat. Neck: No neck pain. No goiter. No lymphadenopathy. Cardiopulmonary: Shortness of breath, cough, and wheezing. No chest pain. Gastrointestinal: No nausea, vomiting, abdominal pain. Genitourinary: No history of hesitancy, frequency, dysuria. No swelling of legs. No joint pain. Neurologic: No focal symptoms or weakness. PHYSICAL EXAMINATION: VITAL SIGNS: Temperature is 98.5 degrees, pulse 92, blood pressure is stable. Height 5 feet 5 inches, 180 pounds. HEENT: Atraumatic, normocephalic. Pupils equal, react to light. TMs are normal. Nose and throat within normal limits. NECK: Supple. No lymphadenopathy. No goiter. CHEST: Bilateral wheezing. HEART: Sounds are distant. GASTROINTESTINAL: Belly is soft, nontender. Good bowel sounds. EXTREMITIES: No peripheral edema or cyanosis. NEUROLOGIC: No obvious neurological deficits. INVESTIGATIONS: CBC: White cell count 18.3, hematocrit 35, platelets 259,000. SMA 7 is normal. Sugar is 228. Chest x-ray stable. ASSESSMENT: A 63-year-old, white male, admitted to the hospital with a fever of 102, with elevated white cell count. PLAN: Blood cultures, urine cultures. We will start on IV Rocephin, IV steroids. DVT prophylaxis with Lovenox, GI prophylaxis with IV Protonix, and reconcile home medications. Pain control with Toradol, Nubain as needed, and will follow up. cc: Guerrero Belcher MD
[2019-09-20] MEDS: LOVENOX SUBQ SCH (21:10)
[2019-09-20] MEDS: DESYREL PO SCH (21:11)
[2019-09-20] MEDS: NEURONTIN PO SCH (21:11)
[2019-09-20] MEDS: ZOLOFT PO SCH (21:11)
[2019-09-20] MEDS: FLEXERIL PO SCH (21:11)
[2019-09-20] MEDS: HUMALOG SUBQ SCH (21:12)
[2019-09-21] MEDS: TORADOL IV PRN ×2 (04:31→18:20)
[2019-09-21] MEDS: HUMALOG SUBQ SCH ×4 (06:26→20:38)
[2019-09-21] MEDS: BREO ELLIPTA 100/25 MCG INH INH SCH (08:03)
[2019-09-21] MEDS: NUBAIN IV PRN ×2 (08:19→16:26)
[2019-09-21] MEDS: MIRALAX PO SCH (08:21)
[2019-09-21] MEDS: NON-FORMULARY MED (Empagliflozin [Jardiance] 25 MG) PO SCH (08:21)
[2019-09-21] MEDS: CENTRUM TABLET PO SCH (08:22)
[2019-09-21] MEDS: NEURONTIN PO SCH ×3 (08:22→20:28)
[2019-09-21] MEDS: COZAAR PO SCH (08:22)
[2019-09-21] MEDS: SOLU-MEDROL IV SCH (08:23)
[2019-09-21] MEDS: TRESIBA FLEXTOUCH U-100 SUBQ SCH (08:23)
[2019-09-21] MEDS: GLUCOPHAGE PO SCH ×2 (10:14→17:29)
[2019-09-21] MEDS: ZOFRAN IV PRN ×2 (17:05→20:38)
[2019-09-21] MEDS: PROTONIX IV SCH (19:14)
[2019-09-21] MEDS: ROCEPHIN 1 GM in NS 50 ML IV SCH (19:14)
[2019-09-21] MEDS: DESYREL PO SCH (20:27)
[2019-09-21] MEDS: FLEXERIL PO SCH (20:28)
[2019-09-21] MEDS: LOVENOX SUBQ SCH (20:28)
[2019-09-21] MEDS: ZOLOFT PO SCH (20:28)
--- NOTE | 2019-09-21 22:14 | PROGRESS NOTE ---
DATE: 09/21/2019 SUBJECTIVE: Intermittent fever, productive cough with yellowish phlegm. Requesting for pain medicine. REVIEW OF SYSTEMS: No chest pain. OBJECTIVE: Temperature is 97.9 degrees, pulse 86. Vitals are stable.HEENT: Within normal limits. Chest: Decreased wheezing. Heart sounds are regular. Belly is soft, nontender. No obvious deficits. INVESTIGATIONS: None reported, except white cell count 18.2. ASSESSMENT AND PLAN: 1. Acute asthmatic bronchitis. Allergic to erythromycin. Continue on IV Rocephin. 2. Out of stock Nubain. Discontinue. Toradol as needed. 3. Diabetes. Insulin protocol. 4. Deep vein thrombosis and gastrointestinal prophylaxis as per order sheet with Lovenox and proton pump inhibitor. 5. Constipation. On MiraLAX. 6. We will check the labs in the morning, CBC and SMA 7. LEVEL OF DOCUMENTATION: 25 minutes. cc: Guerrero Belcher MD MTDD
[2019-09-22] MEDS: ZOFRAN IV PRN ×3 (01:15→21:40)
[2019-09-22] MEDS: TORADOL IV PRN ×3 (01:46→15:00)
[2019-09-22 05:42] LABS: AGAP 15; BUN 18 mg/dL (8-22); CALCIUM 9.1 mg/dL (8.8-10.2); CHLORIDE 102 mmol/L (98-107); COSMO 285; CREATININE 0.8 mg/dL (0.7-1.2); ESTIMATED GFR > 60; GLUCOSE 231 mg/dL (70-104); POTASSIUM 4.4 mmol/L (3.5-5.1); SODIUM 138 mmol/L (136-145); TCO2 21 mmol/L (25-35)
[2019-09-22 05:51] LABS: BASO# 0.04 X1000 (0.0-0.2); BASO% 0.4 % (0.0-0.8); EOS# 0.32 X1000 (0.0-0.7); EOS% 2.9 % (0.0-10.0); HEMATOCRIT 33.1 % (42.0-52.0); HEMOGLOBIN 9.7 g/dL (14.0-18.0); IMM GRAN# 0.13 X1000 (0.0-0.04); IMM GRAN% 1.2 % (0.0-0.5); LYMPH# 3.35 X1000 (1.2-3.4); MCH 20.3 PG (27-31); MCHC 29.3 g/dL (33-37); MCV 69.4 FL (81-99); MONO% 7.2 % (1.7-9.3); MPV 10.8 FL (7.4-10.4); NEUT# 6.53 X1000 (1.4-6.5); NEUT% 58.3 % (42.2-75.2); PLT 236 X1000 (130-400); RBC 4.77 XMIL (4.7-6.1); RDW 20.4 % (11.5-14.5); WBC 11.17 X1000 (4.8-10.8)
[2019-09-22] MEDS: HUMALOG SUBQ SCH ×4 (06:33→21:41)
[2019-09-22] MEDS: NON-FORMULARY MED (Empagliflozin [Jardiance] 25 MG) PO SCH (08:48)
[2019-09-22] MEDS: NEURONTIN PO SCH ×3 (08:48→21:41)
[2019-09-22] MEDS: COZAAR PO SCH (08:48)
[2019-09-22] MEDS: GLUCOPHAGE PO SCH ×2 (08:49→17:17)
[2019-09-22] MEDS: CENTRUM TABLET PO SCH (08:49)
[2019-09-22] MEDS: SOLU-MEDROL IV SCH (08:49)
[2019-09-22] MEDS: TRESIBA FLEXTOUCH U-100 SUBQ SCH (08:55)
[2019-09-22] MEDS: BREO ELLIPTA 100/25 MCG INH INH SCH (08:56)
[2019-09-22] MEDS: MIRALAX PO SCH (08:58)
--- NOTE | 2019-09-22 11:47 | PROGRESS NOTE ---
DATE: 09/22/2019 SUBJECTIVE: Continues to have coughing, wheezing, productive cough. REVIEW OF SYSTEMS: None reported. PHYSICAL EXAMINATION: Vital Signs: Temperature is 98 degrees, pulse 93. Vitals are stable. Saturating 94% on room air. HEENT: Within normal limits. Neck: Supple. Chest: Scattered wheezing. Heart: Heart sounds are regular. Abdomen: Belly is soft, nontender. Neurologic: No obvious deficits. INVESTIGATIONS: White cell count 11, hematocrit 33, platelets 236,000. Sodium 138, potassium 4.4, chloride 102, BUN 18, creatinine 0.8, and glucose 231. ASSESSMENT AND PLAN: 1. Acute asthmatic bronchitis, stable. Decreased white cell count. Continue intravenous Rocephin. Slowly wean off Nubain. Toradol as needed. 2. Diabetes, worsening due to steroids. 3. Continue present treatment. LEVEL OF DOCUMENTATION: 25 minutes. cc: Guerrero Belcher MD
[2019-09-22] MEDS: ULTRAM PO PRN ×2 (12:49→18:48)
[2019-09-22] MEDS: PROTONIX IV SCH (17:19)
[2019-09-22] MEDS: ROCEPHIN 1 GM in NS 50 ML IV SCH (17:22)
[2019-09-22] MEDS: LOVENOX SUBQ SCH (21:40)
[2019-09-22] MEDS: DESYREL PO SCH (21:41)
[2019-09-22] MEDS: FLEXERIL PO SCH (21:41)
[2019-09-22] MEDS: ZOLOFT PO SCH (21:41)
[2019-09-23] MEDS: TORADOL IV PRN ×4 (00:39→19:38)
[2019-09-23] MEDS: ZOFRAN IV PRN ×4 (03:01→21:04)
[2019-09-23] MEDS: HUMALOG SUBQ SCH ×4 (06:53→20:58)
[2019-09-23] MEDS: BREO ELLIPTA 100/25 MCG INH INH SCH (07:58)
[2019-09-23] MEDS: CENTRUM TABLET PO SCH (08:52)
[2019-09-23] MEDS: COZAAR PO SCH (08:52)
[2019-09-23] MEDS: NEURONTIN PO SCH ×3 (08:52→20:58)
[2019-09-23] MEDS: NON-FORMULARY MED (Empagliflozin [Jardiance] 25 MG) PO SCH (08:52)
[2019-09-23] MEDS: MIRALAX PO SCH (08:52)
[2019-09-23] MEDS: SOLU-MEDROL IV SCH (08:53)
[2019-09-23] MEDS: TRESIBA FLEXTOUCH U-100 SUBQ SCH (08:53)
[2019-09-23] MEDS: GLUCOPHAGE PO SCH ×2 (08:53→16:57)
[2019-09-23] MEDS: ULTRAM PO PRN ×3 (09:12→22:40)
[2019-09-23] MEDS: TUSSIONEX LIQUID PO SCH ×2 (11:03→20:58)
[2019-09-23] MEDS: PROTONIX IV SCH (17:00)
[2019-09-23] MEDS: ROCEPHIN 1 GM in NS 50 ML IV SCH (17:00)
[2019-09-23] MEDS: LOVENOX SUBQ SCH (20:58)
[2019-09-23] MEDS: DESYREL PO SCH (20:58)
[2019-09-23] MEDS: ZOLOFT PO SCH (20:58)
[2019-09-23] MEDS: FLEXERIL PO SCH (20:58)
--- NOTE | 2019-09-23 21:31 | PROGRESS NOTE ---
DATE: 09/23/2019 SUBJECTIVE: The patient still has back pain, productive cough. REVIEW OF SYSTEMS: None reported. OBJECTIVE: Vital Signs: Temperature is 98, pulse 90. Vitals are stable, 93% on room air. HEENT: Within normal limits. Neck: Supple. No lymphadenopathy. Chest: Bilateral air entry. Cardiovascular: Heart sounds are regular. Abdomen: Belly is soft, nontender. Good bowel sounds. Neurological: No obvious deficits. INVESTIGATIONS: None reported. ASSESSMENT AND PLAN: 1. Acute asthma exacerbation. Continue present treatment. 2. Diabetes worsening with steroids. 3. Judicious use of narcotics. Continue on Toradol and the patient claims he has a lot of back pain while coughing. We will give Tussionex as needed and will follow up. LEVEL OF DOCUMENTATION: 25 minutes. cc: Guerrero Belcher MD
[2019-09-24] MEDS: ZOFRAN IV PRN ×4 (00:04→20:33)
[2019-09-24] MEDS: TORADOL IV PRN ×4 (01:25→20:33)
[2019-09-24] MEDS: ULTRAM PO PRN ×3 (05:53→20:39)
[2019-09-24] MEDS: HUMALOG SUBQ SCH ×5 (05:58→20:37)
[2019-09-24] MEDS: BREO ELLIPTA 100/25 MCG INH INH SCH (08:04)
[2019-09-24] MEDS: NON-FORMULARY MED (Empagliflozin [Jardiance] 25 MG) PO SCH (08:20)
[2019-09-24] MEDS: SOLU-MEDROL IV SCH (08:20)
[2019-09-24] MEDS: GLUCOPHAGE PO SCH ×2 (08:20→17:09)
[2019-09-24] MEDS: CENTRUM TABLET PO SCH (08:20)
[2019-09-24] MEDS: NEURONTIN PO SCH ×3 (08:20→20:42)
[2019-09-24] MEDS: TUSSIONEX LIQUID PO SCH ×2 (08:20→20:38)
[2019-09-24] MEDS: MIRALAX PO SCH (08:21)
[2019-09-24] MEDS: TRESIBA FLEXTOUCH U-100 SUBQ SCH (08:21)
[2019-09-24] MEDS: COZAAR PO SCH (08:28)
[2019-09-24] MEDS ORDERED: INSULIN PEN NEEDLES ONE (09:35)
[2019-09-24] MEDS: ROCEPHIN 1 GM in NS 50 ML IV SCH (17:09)
[2019-09-24] MEDS: PROTONIX IV SCH (17:10)
[2019-09-24] MEDS: LOVENOX SUBQ SCH (20:33)
[2019-09-24] MEDS: ZOLOFT PO SCH (20:33)
[2019-09-24] MEDS: FLEXERIL PO SCH (20:33)
[2019-09-24] MEDS: DESYREL PO SCH (20:33)
--- NOTE | 2019-09-24 22:42 | PROGRESS NOTE ---
DATE: 09/24/2019 SUBJECTIVE: The patient is still coughing and wheezing. No fever. PHYSICAL EXAMINATION: Vital signs: Temperature is 97 degrees, pulse 98, blood pressure is stable. HEENT: Within normal limits. Neck: Supple. No lymphadenopathy. No goiter. Chest: Bilateral wheezing. Heart: Sounds are regular. Abdomen: Belly is soft, nontender. No obvious deficits. INVESTIGATIONS: White cell count 11, hematocrit 33. ASSESSMENT AND PLAN: 1. Acute asthma/bronchitis, improving. 2. Diabetes, stable and if he continues to improve, will discharge in the morning and initiate vaccination protocol prior to the discharge. LEVEL OF DOCUMENTATION: 15 minutes. cc: Guerrero Belcher MD
[2019-09-25] MEDS: TORADOL IV PRN ×2 (02:28→09:03)
[2019-09-25] MEDS: ULTRAM PO PRN ×2 (02:28→09:03)
[2019-09-25] MEDS: ZOFRAN IV PRN ×2 (02:31→09:03)
[2019-09-25] MEDS: HUMALOG SUBQ SCH ×2 (06:06→11:47)
[2019-09-25] MEDS: BREO ELLIPTA 100/25 MCG INH INH SCH (07:42)
[2019-09-25] MEDS: COZAAR PO SCH (09:03)
[2019-09-25] MEDS: MIRALAX PO SCH (09:04)
[2019-09-25] MEDS: NON-FORMULARY MED (Empagliflozin [Jardiance] 25 MG) PO SCH (09:04)
[2019-09-25] MEDS: TUSSIONEX LIQUID PO SCH (09:04)
[2019-09-25] MEDS: CENTRUM TABLET PO SCH (09:04)
[2019-09-25] MEDS: TRESIBA FLEXTOUCH U-100 SUBQ SCH (09:04)
[2019-09-25] MEDS: SOLU-MEDROL IV SCH (09:05)
[2019-09-25] MEDS: GLUCOPHAGE PO SCH (09:05)
[2019-09-25] MEDS: NEURONTIN PO SCH (09:05)
[2019-09-25 12:22] VITALS: BP 151/80
--- NOTE | 2019-09-26 18:17 | DISCHARGE SUMMARY ---
ADMISSION DATE: 09/20/2019 DISCHARGE DATE: 09/25/2019 DISCHARGING DIAGNOSIS: Acute asthmatic bronchitis, fever of 102 degrees. SECONDARY DIAGNOSES: 1. COPD/asthma. 2. Type 2 diabetes. 3. Metabolic syndrome. 4. Hypertension. 5. Acid reflux disease. 6. IBS. 7. Reactive depression. 8. Hyperlipidemia. 9. Chronic pain from recent back pain surgery. BRIEF HISTORY/HOSPITAL COURSE: Please see the history and physical that was done on 09/20/2019. In brief, he is a 63-year-old white gentleman who basically came in with above symptoms. He had a fever of 102 degrees, shortness of breath and wheezing. Flu test was negative. Chest x-ray stable lung disease. He was markedly wheezing, symptomatic, and as a result hospital admission was warranted. During the hospital course the patient was given IV antibiotics, low dose of IV steroids, bronchodilators. He has a productive cough. Mostly treated for bronchopneumonia. He has been asking for something for chronic pain for which I have given Toradol. The patient was also given a Tussionex for cough syrup. The rest of the hospital course was uneventful. At the time of discharge patient is stable. The patient did receive a pneumococcal 23 vaccine 2016. LABS: White cell count 11, hematocrit 33, platelets 236,000. Sodium 138, potassium 4.4, chloride 102, BUN 18, creatinine 0.8, glucose 230. DISCHARGE MEDICATIONS: The Medications are as follows: Zoloft 50 mg at bedtime, Losartan 100 daily, metformin 1,000 p.o. b.i.d., trazodone 150 at bedtime, Ambien 5 mg at bedtime, multivitamin 1 tablet daily ,Trulicity 0.75 once a week, MiraLAX 17 gm daily, gabapentin 300 p.o. t.i.d., Tarceva 70 units subcutaneous in the morning, Flexeril 10 mg daily, Breo 1 puff daily, Ventolin HFA as needed for breakthrough wheezing, Jardiance 25 daily, Medrol Dosepak, Levaquin 500 daily. FOLLOWUP: Follow up in my office in 10 days. cc: Guerrero Belcher MD MTDD
== END 2019-09-25 13:27 | disposition home or self-care (01) | DRG 203 ==
LOC: DIRADM 13:26 → EDIPHOLD 13:46 → 1N 16:41
PROVIDERS: ADMIT Internal Medicine; ATTEND Internal Medicine

== ENCOUNTER 2019-10-31 11:38 | Inpatient (IN) ==
[2019-10-31 14:44] LABS: BASO# 0.07 X1000 (0.0-0.2); BASO% 0.7 % (0.0-0.8); EOS# 0.34 X1000 (0.0-0.7); EOS% 3.4 % (0.0-10.0); HEMATOCRIT 39.2 % (42.0-52.0); HEMOGLOBIN 11.6 g/dL (14.0-18.0); IMM GRAN# 0.02 X1000 (0.0-0.04); IMM GRAN% 0.2 % (0.0-0.5); LYMPH# 2.44 X1000 (1.2-3.4); LYMPH% 24.5 % (20.5-51.1); MCH 20.5 PG (27-31); MCHC 29.6 g/dL (33-37); MCV 69.1 FL (81-99); MONO# 0.88 X1000 (0.11-0.59); MONO% 8.8 % (1.7-9.3); MPV 10.3 FL (7.4-10.4); NEUT# 6.21 X1000 (1.4-6.5); NEUT% 62.4 % (42.2-75.2); PLT 294 X1000 (130-400); RBC 5.67 XMIL (4.7-6.1); RDW 21.1 % (11.5-14.5); WBC 9.96 X1000 (4.8-10.8)
[2019-10-31] MEDS ORDERED: NUBAIN IV PRN (14:53)
[2019-10-31 14:59] LABS: AGAP 18; ALB/GLOB RATIO 1.4; ALBUMIN 4.4 g/dL (3.5-5.0); ALKALINE PHOSPHATASE 74 U/L (32-122); BUN 11 mg/dL (8-22); CALCIUM 9.2 mg/dL (8.8-10.2); CHLORIDE 99 mmol/L (98-107); COSMO 276; CREATININE 0.8 mg/dL (0.7-1.2); ESTIMATED GFR > 60; GLUCOSE 157 mg/dL (70-104); GOT 24 U/L (10-34); GPT 25 U/L (10-44); POTASSIUM 4.3 mmol/L (3.5-5.1); SODIUM 137 mmol/L (136-145); TCO2 20 mmol/L (25-35); TOTAL BILIRUBIN 0.22 mg/dL (0.20-1.00); TOTAL PROTEIN 7.5 g/dL (6.3-8.3)
[2019-10-31 15:43] LABS: ANISOCYTOSIS 3+; BANDS 2 % (0-1); EOS 1 % (1-10); LARGE PLATELETS OCCASIONAL; LYMPHS 31 % (21-51); MICROCYTOSIS 2+; MONO 1 % (1-9); SEGS 64 % (42-75)
[2019-10-31 15:44] LABS: HYPOCHROM 2+
[2019-10-31] MEDS: LEVAQUIN 500 MG/D5W 500 MG/100 ML IVPB IV SCH (16:04)
[2019-10-31] MEDS: DILAUDID IV PRN ×2 (16:04→22:11)
[2019-10-31] MEDS: TESSALON PO PRN (16:04)
[2019-10-31] MEDS: ZOSYN 3.375 GM in NS 50 ML IV SCH ×2 (16:04→21:40)
[2019-10-31] MEDS: HUMULIN R SUBQ SCH ×2 (16:59→21:29)
[2019-10-31] MEDS ORDERED: NUBAIN IV SCH (17:00)
--- NOTE | 2019-10-31 19:25 | HISTORY AND PHYSICAL ---
CHIEF COMPLAINT: Incessant cough aggravating lower back pain, low-grade fever. HISTORY OF PRESENT ILLNESS: This 62-year-old, white gentleman, has recurrent asthmatic bronchitis, was treating with Levangelique on and he had been taking for the last few days. Came to my office with unrelenting cough. He has some wheezing. Chest x-ray, right middle lobe infiltrate on the lateral view. He had a fever of 99.6. Basically, admitted to the hospital with aggressive IV antibiotics. He was recently discharged from the hospital last month. PAST MEDICAL HISTORY: 1. COPD. 2. Asthma. 3. Type 2 diabetes. 4. Hypertension. 5. Acid reflux disease. 6. IBS. 7. Depression. 8. Hyperlipidemia. 9. Chronic back pain. PAST SURGICAL HISTORY: Cholecystectomy, bilateral inguinal hernia repair, right shoulder surgery, sinus surgery, back surgery, status post L4-L5 fusion. ALLERGIES: Erythromycin, adhesive tape. SOCIAL HISTORY: for 23 years, 1 son. 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 Lives in [place]. No smoking. No alcohol. FAMILY HISTORY: Father of diabetic complications and chronic kidney disease. Mom of COPD, hypertension, diabetes. HEALTH MAINTENANCE: Flu vaccine 2018, pneumococcal 06/01/2017. MEDICATIONS: Zoloft 50 daily, losartan 100 daily, metformin 1000 p.o. b.i.d., trazodone 150 at bedtime, Ambien 5 mg at bedtime, multivitamin 1 tablet daily, Trulicity 0.75 mg once a week, MiraLAX 17 g daily, gabapentin 300 t.i.d., Tresiba 70 units subcutaneous daily in the morning, Flexeril 10 daily, Breo 1 puff daily, FiberSource 1 tablet p.o. b.i.d., Prilosec 40 daily, Jardiance 25 daily. REVIEW OF SYSTEMS: HEENT: No headache. No vision problem. No earache, sore throat, postnasal drainage. Neck: No neck pain. No goiter. No lymphadenopathy. Cardiopulmonary: No chest pain, shortness of breath, cough, wheezing. Gastrointestinal: No nausea, vomiting, abdominal pain. Genitourinary: No hesitancy, frequency, dysuria. Musculoskeletal: No swelling of legs. Chronic back pain. Neurologic: No focal symptoms or weakness. PHYSICAL EXAMINATION: VITAL SIGNS: Temperature is 100.2 degrees and slowly 99.8. Tachycardic. Vitals are stable, 91%. Height, 5 feet 5 inches, weight 185 pounds. HEENT: Atraumatic, normocephalic. Pupils equal, react to light. TMs are normal. Nose and throat congested. NECK: Supple. No lymphadenopathy. No goiter. CHEST: Bilateral wheezing. CARDIOVASCULAR: Heart sounds are tachycardic. GASTROINTESTINAL: Belly is soft, obese, nontender. Good bowel sounds. EXTREMITIES: No peripheral edema, cyanosis. NEUROLOGIC: No obvious neurological deficits. INVESTIGATIONS: White cell count 9.9, hematocrit 39, platelets 294,000. SMA 7 is normal. Chest x-ray, he has a right middle lobe infiltrate. ASSESSMENT: A 63-year-old, white male, admitted to the hospital with acute asthmatic bronchitis with right middle lobe infiltrate, unable to get any better with outpatient treatment. PLAN: 1. Oxygen, bronchodilators, IV antibiotics with Levaquin and Zosyn. 2. Judicious use of pain medications. 3. Reconcile home medicines. 4. Vaccinations are up to date. We will follow up. cc: Guerrero Belcher MD
[2019-10-31] MEDS: ZOFRAN IV PRN (19:32)
[2019-10-31] MEDS: DESYREL PO SCH (21:27)
[2019-10-31] MEDS: FIBERCON PO SCH (21:28)
[2019-10-31] MEDS: GLUCOPHAGE PO SCH (21:28)
[2019-10-31] MEDS: FLEXERIL PO SCH (21:28)
[2019-10-31] MEDS: ZOLOFT PO SCH (22:12)
[2019-11-01] MEDS: ZOFRAN IV PRN ×3 (01:40→17:59)
[2019-11-01] MEDS: DILAUDID IV PRN ×4 (04:11→21:55)
[2019-11-01] MEDS: ZOSYN 3.375 GM in NS 50 ML IV SCH ×4 (04:12→21:55)
[2019-11-01] MEDS ORDERED: PRILOSEC PO SCH (07:00)
[2019-11-01] MEDS: HUMULIN R SUBQ SCH ×4 (07:00→20:41)
[2019-11-01] MEDS: BREO ELLIPTA 100/25 MCG INH INH SCH (08:28)
[2019-11-01] MEDS: COZAAR PO SCH (09:48)
[2019-11-01] MEDS: NEURONTIN PO SCH ×3 (09:48→20:37)
[2019-11-01] MEDS: CENTRUM TABLET PO SCH (09:48)
[2019-11-01] MEDS: JARDIANCE PO SCH (09:48)
[2019-11-01] MEDS: FIBERCON PO SCH ×2 (09:48→20:37)
[2019-11-01] MEDS: GLUCOPHAGE PO SCH ×2 (09:48→20:37)
[2019-11-01] MEDS: TRESIBA FLEXTOUCH U-100 SUBQ SCH (11:32)
[2019-11-01] MEDS: LEVAQUIN 500 MG/D5W 500 MG/100 ML IVPB IV SCH (14:02)
[2019-11-01] MEDS: TESSALON PO PRN (17:59)
--- NOTE | 2019-11-01 19:47 | PROGRESS NOTE ---
DATE: 11/01/2019 SUBJECTIVE: The patient has low-grade fever, intractable cough. REVIEW OF SYSTEMS: None reported. OBJECTIVE: Temperature is 98 degrees, pulse 90, blood pressure is 124/53, 100 percent on room air.HEENT: Within normal limits. Neck: Supple. Chest: Clear to auscultation. Decreased wheezing. Heart sounds are regular. ASSESSMENT: 1. Acute asthmatic bronchitis, right middle lobe infiltrate. 2. Chronic back pain. 3. Diabetes. PLAN OF CARE: Continue IV antibiotics with Levaquin and Zosyn. Control diabetes. DVT and GI prophylaxis with Lovenox and Nexium respectively. Continue present treatment. LEVEL OF DOCUMENTATION: 25 minutes. cc: Guerrero Belcher MD
[2019-11-01] MEDS: FLEXERIL PO SCH (20:36)
[2019-11-01] MEDS: ZOLOFT PO SCH (20:37)
[2019-11-01] MEDS: DESYREL PO SCH (20:37)
[2019-11-01] MEDS: LOVENOX SUBQ SCH (20:41)
[2019-11-01] MEDS: PROTONIX IV SCH (20:41)
[2019-11-02] MEDS: ZOFRAN IV PRN ×3 (03:04→21:20)
[2019-11-02] MEDS: TESSALON PO PRN ×2 (03:06→21:20)
[2019-11-02] MEDS: ZOSYN 3.375 GM in NS 50 ML IV SCH ×5 (04:00→21:09)
[2019-11-02] MEDS: DILAUDID IV PRN ×4 (04:26→21:05)
[2019-11-02] MEDS: HUMULIN R SUBQ SCH ×4 (06:08→21:20)
[2019-11-02] MEDS: BREO ELLIPTA 100/25 MCG INH INH SCH (07:59)
[2019-11-02] MEDS: COZAAR PO SCH (08:51)
[2019-11-02] MEDS: JARDIANCE PO SCH (08:51)
[2019-11-02] MEDS: FIBERCON PO SCH ×2 (08:51→21:07)
[2019-11-02] MEDS: TRESIBA FLEXTOUCH U-100 SUBQ SCH (08:52)
[2019-11-02] MEDS: NEURONTIN PO SCH ×3 (08:52→21:07)
[2019-11-02] MEDS: GLUCOPHAGE PO SCH ×2 (08:52→21:07)
[2019-11-02] MEDS: CENTRUM TABLET PO SCH (08:52)
[2019-11-02] MEDS: SOLU-MEDROL IV SCH (11:50)
--- NOTE | 2019-11-02 12:29 | PROGRESS NOTE ---
DATE: 11/02/2019 Mr. Graham is still not feeling well. He has COPD with acute asthmatic bronchitis and right middle lobe pneumonia. He is on Levaquin as well as piperacillin for that. His vital signs are stable. Chest sounds congested bilaterally with expiratory wheezing. White count is 9.96, hemoglobin 11.6, hematocrit 39.2. Electrolytes are normal. Bicarb is 20, which is compensatory and blood sugar is 157. We will put him on low-dose steroids today. cc: MD Guerrero Roberts MD
[2019-11-02] MEDS: LEVAQUIN 500 MG/D5W 500 MG/100 ML IVPB IV SCH (14:50)
[2019-11-02] MEDS: LOVENOX SUBQ SCH (21:07)
[2019-11-02] MEDS: DESYREL PO SCH (21:07)
[2019-11-02] MEDS: FLEXERIL PO SCH (21:07)
[2019-11-02] MEDS: ZOLOFT PO SCH (21:07)
[2019-11-02] MEDS: PROTONIX IV SCH (21:08)
[2019-11-03] MEDS: DILAUDID IV PRN ×6 (02:55→22:04)
[2019-11-03] MEDS: ZOSYN 3.375 GM in NS 50 ML IV SCH ×5 (03:39→20:27)
[2019-11-03] MEDS: SOLU-MEDROL IV SCH ×2 (03:39→15:47)
[2019-11-03] MEDS: ZOFRAN IV PRN ×4 (03:39→19:12)
[2019-11-03] MEDS: COZAAR PO SCH (08:15)
[2019-11-03] MEDS: GLUCOPHAGE PO SCH ×3 (08:15→20:28)
[2019-11-03] MEDS: JARDIANCE PO SCH (08:15)
[2019-11-03] MEDS: NEURONTIN PO SCH ×4 (08:15→20:27)
[2019-11-03] MEDS: CENTRUM TABLET PO SCH (08:15)
[2019-11-03] MEDS: FIBERCON PO SCH ×3 (08:15→20:27)
[2019-11-03] MEDS: TRESIBA FLEXTOUCH U-100 SUBQ SCH (08:16)
[2019-11-03] MEDS: BREO ELLIPTA 100/25 MCG INH INH SCH (08:39)
[2019-11-03] MEDS: HUMULIN R SUBQ SCH ×5 (10:21→22:04)
--- NOTE | 2019-11-03 11:18 | PROGRESS NOTE ---
DATE: 11/03/2019 Mr. Graham is still having some shortness of breath. He is on IV steroids. Will repeat the chest x-ray. He complains of severe back pain where he had back surgery. We will increase the hydromorphone to every 3 hours p.r.n. cc: MD Guerrero Roberts MD
[2019-11-03] MEDS: TESSALON PO PRN ×2 (13:35→14:08)
[2019-11-03] MEDS: LEVAQUIN 500 MG/D5W 500 MG/100 ML IVPB IV SCH (14:09)
[2019-11-03] MEDS: LOVENOX SUBQ SCH (19:12)
[2019-11-03] MEDS: PROTONIX IV SCH (19:12)
[2019-11-03] MEDS: ZOLOFT PO SCH ×2 (19:13→20:29)
[2019-11-03] MEDS: FLEXERIL PO SCH ×2 (19:13→20:28)
[2019-11-03] MEDS: DESYREL PO SCH ×2 (19:13→20:27)
[2019-11-04] MEDS: ZOFRAN IV PRN ×4 (01:39→21:26)
[2019-11-04] MEDS: DILAUDID IV PRN ×5 (01:39→21:27)
[2019-11-04] MEDS: SOLU-MEDROL IV SCH (04:46)
[2019-11-04] MEDS: ZOSYN 3.375 GM in NS 50 ML IV SCH ×4 (04:47→20:07)
[2019-11-04] MEDS: HUMULIN R SUBQ SCH ×4 (06:36→20:08)
[2019-11-04 08:15] LABS: BASO# 0.05 X1000 (0.0-0.2); BASO% 0.6 % (0.0-0.8); EOS# 0.09 X1000 (0.0-0.7); EOS% 1.1 % (0.0-10.0); HEMATOCRIT 34.7 % (42.0-52.0); HEMOGLOBIN 9.9 g/dL (14.0-18.0); IMM GRAN# 0.15 X1000 (0.0-0.04); IMM GRAN% 1.8 % (0.0-0.5); LYMPH# 1.47 X1000 (1.2-3.4); LYMPH% 18.1 % (20.5-51.1); MCH 20.4 PG (27-31); MCHC 28.5 g/dL (33-37); MCV 71.5 FL (81-99); MONO# 0.28 X1000 (0.11-0.59); MONO% 3.5 % (1.7-9.3); NEUT# 6.07 X1000 (1.4-6.5); NEUT% 74.9 % (42.2-75.2); PLT 241 X1000 (130-400); RBC 4.85 XMIL (4.7-6.1); RDW 20.6 % (11.5-14.5); WBC 8.11 X1000 (4.8-10.8)
[2019-11-04 08:25] LABS: AGAP 17; BUN 17 mg/dL (8-22); CALCIUM 8.9 mg/dL (8.8-10.2); CHLORIDE 100 mmol/L (98-107); COSMO 294; CREATININE 0.8 mg/dL (0.7-1.2); ESTIMATED GFR > 60; GLUCOSE 362 mg/dL (70-104); POTASSIUM 4.5 mmol/L (3.5-5.1); SODIUM 139 mmol/L (136-145); TCO2 22 mmol/L (25-35)
[2019-11-04] MEDS: BREO ELLIPTA 100/25 MCG INH INH SCH (08:36)
--- NOTE | 2019-11-04 08:44 | Diag Imaging Result Doc PS360 ---
EXAM: CHEST-2 VIEWS HISTORY: bronchitis TECHNIQUE: Two views COMPARISON: 10/01/2018 FINDINGS: The lungs are well expanded. The heart is not enlarged. The vessels are not distended. There are no infiltrates. No pleural effusions. IMPRESSION: No pneumonia Electronically signed by Miles Caicedo 11/04/2019 8:41 AM
[2019-11-04] MEDS: GLUCOPHAGE PO SCH ×2 (08:47→20:06)
[2019-11-04] MEDS: JARDIANCE PO SCH (08:47)
[2019-11-04] MEDS: CENTRUM TABLET PO SCH (08:47)
[2019-11-04] MEDS: COZAAR PO SCH (08:48)
[2019-11-04] MEDS: TRESIBA FLEXTOUCH U-100 SUBQ SCH (08:48)
[2019-11-04] MEDS: NEURONTIN PO SCH ×3 (08:51→20:06)
[2019-11-04] MEDS: FIBERCON PO SCH ×2 (09:00→20:06)
[2019-11-04] MEDS: LEVAQUIN 500 MG/D5W 500 MG/100 ML IVPB IV SCH (13:34)
[2019-11-04] MEDS: TESSALON PO PRN ×2 (15:34→21:26)
[2019-11-04] MEDS: ZOLOFT PO SCH (20:06)
[2019-11-04] MEDS: FLEXERIL PO SCH (20:06)
[2019-11-04] MEDS: DESYREL PO SCH (20:06)
[2019-11-04] MEDS: LOVENOX SUBQ SCH (20:07)
[2019-11-04] MEDS: SODIUM CHLORIDE 0.9% INJ SCH (20:07)
[2019-11-04] MEDS: PROTONIX IV SCH (20:08)
[2019-11-05] MEDS: ZOFRAN IV PRN ×4 (03:07→20:33)
[2019-11-05] MEDS: DILAUDID IV PRN ×4 (03:08→20:40)
[2019-11-05] MEDS: ZOSYN 3.375 GM in NS 50 ML IV SCH ×4 (03:09→20:33)
--- NOTE | 2019-11-05 05:00 | PROGRESS NOTE ---
DATE: 11/04/2019 SUBJECTIVE: The patient continues to have cough and wheezing. Symptoms are out of proportion. Complains of back pain. Follow up chest x-ray is improving. OBJECTIVE: Vital Signs: Stable. HEENT: Within normal limits. Chest: Clear. Heart: Sounds are regular. Abdomen: Belly is soft and nontender. No obvious deficits. ASSESSMENT AND PLAN: Acute COPD/asthma/right middle lobe. Follow up x-rays improving. Slowly decrease the Dilaudid. Diabetes is stable. Continue on IV Zosyn and Levaquin. We will arrange for outpatient pain specialist for chronic back pain. Continue present treatment. LEVEL OF DOCUMENTATION: 25 minutes. cc: Guerrero Belcher MD
[2019-11-05] MEDS: SOLU-MEDROL IV SCH (06:56)
[2019-11-05] MEDS: HUMULIN R SUBQ SCH ×4 (06:57→20:33)
[2019-11-05] MEDS: BREO ELLIPTA 100/25 MCG INH INH SCH (08:40)
[2019-11-05] MEDS: TESSALON PO PRN ×3 (08:42→23:41)
[2019-11-05] MEDS: GLUCOPHAGE PO SCH ×2 (08:42→20:33)
[2019-11-05] MEDS: COZAAR PO SCH (08:42)
[2019-11-05] MEDS: CENTRUM TABLET PO SCH (08:42)
[2019-11-05] MEDS: FIBERCON PO SCH ×2 (08:42→20:32)
[2019-11-05] MEDS: JARDIANCE PO SCH (08:42)
[2019-11-05] MEDS: TRESIBA FLEXTOUCH U-100 SUBQ SCH (08:43)
[2019-11-05] MEDS: NEURONTIN PO SCH ×3 (08:53→20:33)
--- NOTE | 2019-11-05 09:29 | Diag Imaging Result Doc PS360 ---
EXAM: CT THORAX W/CONTRAST 11/05/2019 HISTORY: pneumonia TECHNIQUE: This exam was performed using automated exposure control, adjustment of mA or kV according to patient size, and/or use of iterative reconstruction technique. COMMENT: There is prevascular and aorticopulmonary window adenopathy which has not changed significantly since 07/01/2013. There are also some carinal nodes which were present previously. There are no abnormal fluid collections the pleural effusion seen on the previous study having resolved. There are platelike opacities present in the right middle lobe which are worse than on the previous study. There are also some minimal atelectatic appearing opacities present in the lower lobes bilaterally. The alveolar opacities seen on the previous examination in the lingula, left lower lobe, right upper lobe and the superior segment of the right lower lobe have resolved. Some atelectasis or fibrosis is seen in the inferior lingula. IMPRESSION: Atelectasis in the right middle lobe and lingula. Minimal atelectasis in both lower lobes. Electronically signed by Kvng Elkins 11/05/2019 9:26 AM
--- NOTE | 2019-11-05 09:30 | Diag Imaging Result Doc PS360 ---
EXAM: CT MAXILLOFACIAL(SINUS) W/CON 11/05/2019 HISTORY: cough TECHNIQUE: CT of the paranasal sinuses COMMENT: There is marked mucosal thickening in both maxillary sinuses and there has been previous maxillary antral window formation. There is also been resection of some of the ethmoid air cells where there is more or less uniform mucosal thickening. The sphenoid sinuses are clear. There is mucosal thickening in the left frontal sinus. IMPRESSION: Chronic sinusitis in the maxillary ethmoid and right frontal sinuses. Electronically signed by Kvng Elkins 11/05/2019 9:28 AM
[2019-11-05] MEDS: LEVAQUIN 500 MG/D5W 500 MG/100 ML IVPB IV SCH (14:34)
[2019-11-05] MEDS: DESYREL PO SCH (20:32)
[2019-11-05] MEDS: ZOLOFT PO SCH (20:32)
[2019-11-05] MEDS: LOVENOX SUBQ SCH (20:33)
[2019-11-05] MEDS: FLEXERIL PO SCH (20:33)
[2019-11-05] MEDS: PROTONIX IV SCH (20:33)
--- NOTE | 2019-11-06 00:16 | PROGRESS NOTE ---
DATE: 11/05/2019 SUBJECTIVE: The patient has complaints of incessant cough causing the back pain. He wants a second opinion. He wants a lung specialist looked at. He still has nasty phlegm coming out. The symptoms are out of proportion. OBJECTIVE: On exam, temperature is 98 degrees. Tachycardic. Vital signs are stable, 94% on room air. HEENT exam within normal limits. Neck is supple. Chest: Bilateral air entry. Heart sounds are regular. Belly is soft, nontender. No obvious deficits. INVESTIGATIONS: None. ASSESSMENT AND PLAN: 1. Persistent cough, questionable asthma. Needs allergy testing. We will schedule for a CT of the chest and CT of the sinuses. We will consult Dr. Dodd for second opinion. 2. Diabetes is stable. 3. I am going to judiciously use pain medications. Continue intravenous Zosyn and Levaquin. Will follow up. Level of documentation is 25 minutes. cc: Guerrero Belcher MD
[2019-11-06] MEDS: DILAUDID IV PRN ×5 (02:43→21:40)
[2019-11-06] MEDS: ZOFRAN IV PRN ×3 (02:43→17:20)
[2019-11-06] MEDS: ZOSYN 3.375 GM in NS 50 ML IV SCH ×4 (02:47→21:03)
[2019-11-06] MEDS: DUONEB (A & A) INH SCH ×4 (03:39→21:16)
[2019-11-06] MEDS: HUMULIN R SUBQ SCH ×4 (06:46→21:03)
[2019-11-06] MEDS: SOLU-MEDROL IV SCH (06:46)
--- NOTE | 2019-11-06 07:36 | PULMONOLOGY CONSULTATION ---
DATE: 11/05/2019 REASON FOR CONSULTATION: Cough. HISTORY OF PRESENT ILLNESS: Mr. Graham is a 64-year-old white male with long history of COPD (nonsmoker since 2001) with history of diabetes and history of gastroesophageal reflux disease, who was evaluated by Dr. Belcher for cough associated with back spasm. He was initiated on antibiotics, and returned 2 days later with ongoing wheezing and cough. The patient had an infiltrate in the right middle lobe and was admitted to the hospital. The patient reports significant reflux, and on his second hospital stay he reports he had reflux with a sour brash in his mouth and he also aspirated food into his airway. He has improved slightly over the last 2 days. He underwent a CT scan of the paranasal sinuses today which revealed chronic sinusitis. He underwent a CT scan of the thorax, which reveals atelectasis/infiltrates in the right middle lobe and lingula. PAST MEDICAL HISTORY: 1. Chronic obstructive pulmonary disease with possible asthma overlap. 2. Obesity with 15 pounds weight loss over the last year. 3. Significant gastroesophageal reflux as per above. He does eat as late as 7:30 at night and snacks at night. His biggest meal is at noon, and he does sleep on a 4 inch block. 4. Hypertension. 5. Chronic back pain. 6. Dyslipidemia. 7. Irritable bowel syndrome. 8. Depression. 9. Status post back surgery. 10. Status post sinus surgery. 11. Status post cholecystectomy. 12. Status post right shoulder surgery. SOCIAL HISTORY: Prior tobacco as per above. He has been a nonsmoker for about 18 years. 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 FAMILY HISTORY: Positive for COPD, diabetes, and hypertension. PHYSICAL EXAMINATION: General: Reveals a well-developed, well-nourished male with truncal obesity resting comfortably and in no distress. OBJECTIVE: Vital Signs: The patient has been afebrile for the last 24 hours. Blood pressure 123/57, heart rate 96, respiratory rate 20, and oxygen saturation 93%. HEENT: Pupils are equal and reactive. Oropharynx appears clear. Neck: Supple. Chest: Reveals scattered wheezing and rhonchi bilaterally. Cardiac: S1-S2. Abdomen: Obese and soft. Extremities: Without edema. IMPRESSION: A 64-year-old with: 1. Chronic obstructive pulmonary disease exacerbation. 2. Mild right middle lobe pneumonia/infiltrate. 3. Significant nocturnal reflux with aspiration event during this hospitalization complicating current treatment course. 4. Chronic pain syndrome. RECOMMENDATIONS: 1. Initiate bronchodilators. 2. Strict reflux precautions. The patient was encouraged to eat a smaller meal at supper, and to monitor his sugar in the event he needs to decrease his treatment. 3. Continue reflux precautions. 4. Continue current steroid regimen. cc: MD Guerrero Xiong MD
[2019-11-06] MEDS: TRESIBA FLEXTOUCH U-100 SUBQ SCH (08:23)
[2019-11-06] MEDS: CENTRUM TABLET PO SCH (08:23)
[2019-11-06] MEDS: FIBERCON PO SCH ×2 (08:23→21:04)
[2019-11-06] MEDS: JARDIANCE PO SCH (08:24)
[2019-11-06] MEDS: TESSALON PO PRN ×2 (08:24→21:40)
[2019-11-06] MEDS: GLUCOPHAGE PO SCH ×2 (08:24→21:03)
[2019-11-06] MEDS: NEURONTIN PO SCH ×3 (08:24→21:40)
[2019-11-06] MEDS: COZAAR PO SCH (08:24)
[2019-11-06] MEDS: BREO ELLIPTA 100/25 MCG INH INH SCH (09:11)
[2019-11-06] MEDS: ROBAXIN PO PRN ×2 (12:36→21:40)
[2019-11-06] MEDS: LEVAQUIN 500 MG/D5W 500 MG/100 ML IVPB IV SCH (13:14)
[2019-11-06] MEDS: SODIUM CHLORIDE 0.9% INJ SCH (21:03)
[2019-11-06] MEDS: PROTONIX IV SCH (21:03)
[2019-11-06] MEDS: ZOLOFT PO SCH (21:03)
[2019-11-06] MEDS: LOVENOX SUBQ SCH (21:04)
[2019-11-06] MEDS: DESYREL PO SCH (21:04)
--- NOTE | 2019-11-06 22:43 | PULMONOLOGY PROGRESS NOTE ---
DATE: 11/06/2019 SUBJECTIVE: The patient is awake, alert, and conversant. He has been ambulating in the hallway. He reports his cough is diminished. OBJECTIVE: Vital Signs: The patient is afebrile for the last 24 hours. Blood pressure 137/73, heart rate 100, respiratory rate 14, oxygen saturation 95%. HEENT: Pupils are equal and reactive. Oropharynx appears clear. Neck: Supple. Chest: Reveals scattered wheezing bilaterally. Cardiac: S1-S2. Abdomen: Soft. Extremities: Without edema. IMPRESSION: A 64-year-old with: 1. Chronic obstructive pulmonary disease exacerbation. 2. Nocturnal aspiration event during this hospitalization and possibly prior events at home. 3. Right middle lobe infiltrate which appears to be minor. 4. Chronic pain syndrome. PLAN: 1. Continue bronchodilators. 2. Continue reflux precautions. 3. Continue current steroid regimen. 4. Hopefully discharge by the weekend. cc: MD Guerrero Xiong MD
[2019-11-07] MEDS: DILAUDID IV PRN ×6 (01:34→21:36)
--- NOTE | 2019-11-07 01:50 | PROGRESS NOTE ---
DATE: 11/06/2019 SUBJECTIVE: The patient's symptoms are out of proportion, asking for more pain medication. More cough, causing more back pain. He has some spasms. Appreciated Dr. Dodd's input. He may have some acid reflux disease or postnasal upper airway syndrome. Nurses are at bedside. Apparently, he has been eating well and then walking. OBJECTIVE: On exam, temperature is 98 degrees, tachycardic. Vital signs are stable. HEENT exam within normal limits. No wheezing. Heart sounds are regular. Belly is soft, nontender. ASSESSMENT AND PLAN: 1. Persistent coughing, multifactorial, rule out asthma as an outpatient. 2. Diabetes, stable. 3. Chronic pain. I spoke to the patient that he needs to follow up with a chronic pain specialist. As long as the cough is better, he will be discharged. He is asking for more pain medicine. I added on Robaxin with present regimen. He still has some productive cough and low-grade fever, and he is getting the antibiotics. We will also discuss with Dr. Dodd. Level of documentation 25 minutes. cc: Guerrero Belcher MD
[2019-11-07] MEDS: DUONEB (A & A) INH SCH ×4 (03:28→20:27)
[2019-11-07] MEDS: ZOFRAN IV PRN ×3 (03:53→17:07)
[2019-11-07] MEDS: ROBAXIN PO PRN ×3 (03:53→17:07)
[2019-11-07] MEDS: ZOSYN 3.375 GM in NS 50 ML IV SCH ×4 (03:53→20:31)
[2019-11-07] MEDS: SOLU-MEDROL IV SCH (06:00)
[2019-11-07] MEDS: HUMULIN R SUBQ SCH ×4 (06:01→20:31)
[2019-11-07] MEDS: GLUCOPHAGE PO SCH (09:41)
[2019-11-07] MEDS: COZAAR PO SCH (09:41)
[2019-11-07] MEDS: CENTRUM TABLET PO SCH (09:41)
[2019-11-07] MEDS: FIBERCON PO SCH ×2 (09:41→20:30)
[2019-11-07] MEDS: NEURONTIN PO SCH ×3 (09:42→20:30)
[2019-11-07] MEDS: JARDIANCE PO SCH (09:42)
[2019-11-07] MEDS: TRESIBA FLEXTOUCH U-100 SUBQ SCH (09:44)
[2019-11-07] MEDS: BREO ELLIPTA 100/25 MCG INH INH SCH (10:50)
[2019-11-07] MEDS: TESSALON PO PRN ×2 (11:43→20:30)
[2019-11-07] MEDS: LEVAQUIN 500 MG/D5W 500 MG/100 ML IVPB IV SCH (13:38)
[2019-11-07] MEDS: LOVENOX SUBQ SCH (20:30)
[2019-11-07] MEDS: SODIUM CHLORIDE 0.9% INJ SCH (20:30)
[2019-11-07] MEDS: ZOLOFT PO SCH (20:30)
[2019-11-07] MEDS: DESYREL PO SCH (20:30)
[2019-11-07] MEDS: PROTONIX IV SCH (20:30)
--- NOTE | 2019-11-08 00:04 | PROGRESS NOTE ---
DATE: 11/07/2019 SUBJECTIVE: 1. Continues to have intermittent cough. I relayed Dr. Dodd's information to the patient. He is asking for more pain medicine all the time. 2. He is eating and walking and he coughs only when we make the rounds and symptoms are disproportionate. OBJECTIVE: Vital signs: Stable. HEENT: Within normal limits. No wheezing. Heart: Sounds are regular. The belly is soft, nontender. INVESTIGATIONS: None reported. ASSESSMENT AND PLAN: 1. Aspiration pneumonia with a cough. Antireflux measures discussed and rule out asthma as an outpatient. 2. Chronic pain syndrome. We will refer to the pain specialist. Intractable back pain. He thinks the cough is worsening the back pain. 3. Diabetes is stable. Plan to discharge in the morning. LEVEL OF DOCUMENTATION: 25 minutes. cc: Guerrero Belcher MD
[2019-11-08] MEDS: DILAUDID IV PRN ×3 (01:08→09:38)
[2019-11-08] MEDS: ZOFRAN IV PRN ×2 (01:08→09:38)
--- NOTE | 2019-11-08 02:26 | PULMONOLOGY PROGRESS NOTE ---
DATE: 11/07/2019 SUBJECTIVE: The patient is awake, alert. He reports he has been ambulating in the hallway. He reports his shortness of breath is diminishing, but he does have a cough. OBJECTIVE: Vital Signs: The patient has been afebrile for the last 24 hours. Blood pressure 142/79, heart rate 93, respiratory rate 20, oxygen saturation 100% on room air. HEENT: Pupils are equal and reactive. Oropharynx appears clear. Neck: Supple. Chest: Reveals better air flow bilaterally. He has faint wheezing on forced exhalation. No rhonchi present. Cardiac: S1-S2. Abdomen: Soft. Extremities: Without edema. LABORATORIES: No new chemistries or CBC today. IMPRESSION: A 64-year-old with: 1. Chronic obstructive pulmonary disease exacerbation. 2. Gastroesophageal reflux and nocturnal aspiration. 3. Minor right middle lobe infiltrate. 4. Chronic pain syndrome. 5. Cough. DISCUSSION: A 64-year-old with problems outlined above. Clinically, he appears to be improving and is ambulating in the hallway. PLAN: 1. Continue cough suppressants. 2. Continue reflux precautions. 3. Continue bronchodilators. 4. Follow up chemistries tomorrow with contrasted CT scan 2 days ago. 5. Hopefully, patient will be a candidate for discharge home soon. cc: MD Guerrero Xiong MD
[2019-11-08] MEDS: DUONEB (A & A) INH SCH ×2 (03:33→08:13)
[2019-11-08] MEDS: ZOSYN 3.375 GM in NS 50 ML IV SCH ×2 (03:45→08:27)
[2019-11-08] MEDS: SOLU-MEDROL IV SCH (05:34)
[2019-11-08] MEDS: HUMULIN R SUBQ SCH (06:44)
[2019-11-08 07:13] VITALS: BP 126/68
[2019-11-08 07:55] LABS: BASO# 0.05 X1000 (0.0-0.2); BASO% 0.6 % (0.0-0.8); EOS# 0.32 X1000 (0.0-0.7); EOS% 3.9 % (0.0-10.0); HEMATOCRIT 34.6 % (42.0-52.0); IMM GRAN# 0.18 X1000 (0.0-0.04); IMM GRAN% 2.2 % (0.0-0.5); LYMPH# 1.99 X1000 (1.2-3.4); LYMPH% 24.3 % (20.5-51.1); MCH 20.3 PG (27-31); MCHC 28.9 g/dL (33-37); MCV 70.2 FL (81-99); MONO# 0.36 X1000 (0.11-0.59); MONO% 4.4 % (1.7-9.3); MPV 10.3 FL (7.4-10.4); NEUT# 5.29 X1000 (1.4-6.5); NEUT% 64.6 % (42.2-75.2); PLT 273 X1000 (130-400); RBC 4.93 XMIL (4.7-6.1); RDW 20.8 % (11.5-14.5); WBC 8.19 X1000 (4.8-10.8)
[2019-11-08] MEDS: BREO ELLIPTA 100/25 MCG INH INH SCH (08:13)
[2019-11-08 08:15] LABS: AGAP 15; ALB/GLOB RATIO 1.4; ALBUMIN 3.8 g/dL (3.5-5.0); ALKALINE PHOSPHATASE 49 U/L (32-122); BUN 24 mg/dL (8-22); CHLORIDE 99 mmol/L (98-107); COSMO 298; CREATININE 0.8 mg/dL (0.7-1.2); ESTIMATED GFR > 60; GLUCOSE 329 mg/dL (70-104); GOT 14 U/L (10-34); GPT 19 U/L (10-44); PHOSPHORUS 4.3 mg/dL (2.7-4.5); POTASSIUM 4.6 mmol/L (3.5-5.1); SODIUM 141 mmol/L (136-145); TCO2 27 mmol/L (25-35); TOTAL PROTEIN 6.6 g/dL (6.3-8.3)
[2019-11-08] MEDS: FIBERCON PO SCH (08:26)
[2019-11-08] MEDS: CENTRUM TABLET PO SCH (08:26)
[2019-11-08] MEDS: COZAAR PO SCH (08:26)
[2019-11-08] MEDS: TRESIBA FLEXTOUCH U-100 SUBQ SCH (08:27)
[2019-11-08] MEDS: JARDIANCE PO SCH (08:27)
[2019-11-08] MEDS: NEURONTIN PO SCH (08:27)
[2019-11-08] MEDS: GLUCOPHAGE PO SCH (08:36)
[2019-11-08] MEDS: ROBAXIN PO PRN (09:37)
--- NOTE | 2019-11-10 07:05 | DISCHARGE SUMMARY ---
ADMISSION DATE: 10/31/2019 DISCHARGE DATE: 11/08/2019 DISCHARGING DIAGNOSES: 1. Intractable cough due to recurrent aspiration pneumonitis. 2. Chronic pain syndrome with intractable back pain. 3. Right middle lobe atelectasis with scarring. 4. Type 2 diabetes. 5. Metabolic syndrome. 6. Hypertension. 7. Acid reflux disease. 8. Reactive depression. 9. Hyperlipidemia. CONSULTS: Dr. Dodd. RADIOLOGY PROCEDURES: Chest CT: Atelectasis in the right middle lobe and lingula, minimal atelectasis in both lower lobes. Maxillofacial CT of the sinuses: Chronic sinusitis in maxillary, ethmoidal, and right frontal sinuses. BRIEF HISTORY: Please see the H and P that was done on 10/31/2019. In brief, he is a 64-year- old, white male who had presented with fever, productive cough, incessant cough, shortness of breath, and wheezing. He failed to improve with outpatient treatment. Chest x- ray showed right middle lobe infiltrate. HOSPITAL COURSE: Patient was given IV steroids, IV antibiotics, bronchodilators. He has been persistently asking for pain medicine, as per the nurses. Because of the incessant cough, he has chronic lower back pain that is not completely resolved, even after back surgery. Patient wanted a second opinion. Dr. Dodd was consulted. He thinks patient is getting aspiration with chronic reflux disease. The patient was given instruction, keep the head of the bed on an 18 inch block, do not eat before he goes to bed. Continue to monitor his blood sugars. The patient is also concerned about his kidney status after giving the contrast while he was taking metformin. Followup CBC, creatinine was normal. The patient was advised he needs to see chronic pain specialist, which I am going to make a referral to Dr. Colmenares. LABS: White cell count 8.1, hematocrit 34.6, platelets 273,000. Sodium 141, potassium 4.6, chloride 99, BUN 24, creatinine 0.8, glucose 329. LFTs were normal. DISCHARGE INSTRUCTIONS: Flu vaccine was up-to-date. Pneumococcal vaccine 23 was given in 2017. Zoloft 50 mg at bedtime, losartan 100 daily, metformin 1000 p.o. b.i.d., trazodone 150 at bedtime, multivitamin 1 tablet daily, Trulicity 0.75 mg once a week, gabapentin 300 t.i.d., Tresiba 70 units in the morning, Flexeril 10 at bedtime, Breo 1 puff daily, Ventolin HFA as needed, omeprazole 40 daily, Jardiance 25 daily, Levaquin 500 daily for 7 days, and Tessalon Perles 100 t.i.d. Follow up in my office with outpatient referral for chronic pain specialist with Dr. Colmenares. Also, he needs to check for any allergies for causing this cough besides to aspiration. Will also follow up with Dr. Dodd. cc: MD Kelvin Elias MD [facility] [place]
[2019-11-10] MEDS ORDERED: NON-FORMULARY MED (Dulaglutide [Trulicity] 1 DOSE) SQ SCH (09:00)
== END 2019-11-08 10:50 | disposition home or self-care (01) | DRG 178 ==
LOC: DIRADM 11:38 → EDIPHOLD 13:48 → 3N 15:35
PROVIDERS: ADMIT Internal Medicine; ATTEND Internal Medicine